=== PATIENT | male | born 1950 | race Caucasian/White ===

== ENCOUNTER 2020-02-25 07:48 | Outpatient (CLI) | payer MEDICARE, SELFPAY ==
--- NOTE | 2020-02-25 08:02 | MR_ITS ---
WS: [id number] MRI BRAIN WITHOUT CONTRAST HISTORY: ATYPICAL HEADACHE,VISION LOSS COMPARISON: None available. TECHNIQUE: Diffusion imaging, multiplanar T1, T2 and FLAIR imaging obtained. Significant abnormality noted throughout the RIGHT cerebrum. There is a large amount of vasogenic liset ma with sulcal effacement centered predominantly in the RIGHT parietal, temporal and occipital lobes. Lesser involvement of the posterior frontal lobe. There is extensive vasogenic edema. Abnormal signa l centrally in the parietal region. Abnormal signal measures 4.0 x 3.0 x 4.5 cm centered in the RIGHT parietal lobe. There is an additional similar mixed signal in the anterior frontoparietal region whi ch could be extension are separate tumor. Suspect tumor with necrosis. The edema and infiltrating whi te matter changes extends into the RIGHT splenium of the corpus callosum. There is elevation of the s plenium of the RIGHT corpus callosum. Midline shift by 3 mm. Mass effect and narrowing of the RIGHT l ateral ventricle. There are a few scattered areas of hemosiderin. No inferior displacement of cerebellar tonsils. The sella turcica and pituitary gland are unremarkabl e. Posterior fossa is also unremarkable. Dural venous sinuses and algaaciq of [place] demonstrate no abnormality on this unenhanced studies. Paranasal sinuses: Mucous retention cyst in the floor of the RIGHT maxillary sinus. Mastoid air cells: Normal. Calvarium and scalp: Intact. Notified Jose Quiles DO at 02/25/2020 10:37 AM. Message left on cell phone. MR/MR head wo con* [id number] IMPRESSION: 1. Infiltrating vasogenic edema with variable signal intensity and associated hemosiderin involving portions of the RIGHT temporal, parietal and occipital lo bes. Suspicious for infiltrating neoplasm, most likely GBM as there is extensio n into the corpus callosum. Metastatic disease and lymphoma should be considere d also within the differential but thought less likely. 2. Mild subfalcine herniation by 3 mm. 3. Mass effect upon the RIGHT lateral ventricle. 4. Recommend follow-up MRI brain with contrast.
== END 2020-02-25 07:49 | disposition home or self-care (01) ==
LOC: RADSHAW 07:52
PROVIDERS: Family Provider Family Medicine; PCP Family Medicine; Visit Provider Family Medicine
DX: R51 Headache (principal); R60.9 Edema, unspecified
CPT/HCPCS: 70551

== ENCOUNTER 2020-03-02 12:21 | Outpatient (CLI) | payer MEDICARE, SELFPAY ==
--- NOTE | 2020-03-02 15:21 | ONC CON_ITS ---
Dr. Bourgeois New Patient Note Patient: Asaf Rios Unit #: [id number]: 1950 Dicatated By: Benji Bourgeois M.D.Date of Visit: Mar 02, 2020 Onc MED New Patient/Consult Referring Physician: Dr. Jose Quiles M.D. Chief Complaint: Brain tumor. History of Present Illness: This is a 69-year-old man with suspected right parietal lobe brain tumor. 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 He has had no documented recurrence. His other medical illnesses include hypertension, hyperlipidemia, and chronic atrial fibrillation. He has suspected but apparently not documented coronary artery disease. He has on chronic anticoagulation with warfarin and aspirin. He had presented recently with a one-month history of headache, loss of balance, and visual changes. His brain MRI without contrast on 02/25/2020 showed a large amount of vasogenic edema throughout the right cerebrum with sulcal effacement centered predominantly in the right parietal, temporal, and occipital lobes. There was abnormal signal centrally in the parietal region measuring 4.0 x 3.0 x 4.5 cm suspicious for infiltrating neoplasm. There was mass-effect on the right lateral ventricle. The appearance was most consistent with GBM, as there did appear to be extension into the corpus callosum. Metastatic disease and or lymphoma were not excluded. He was started on steroid therapy with prednisone 20 mg daily. He is seen now for further management. He continues to have some headache and he continues to have difficulty with balance, particularly when he is going up or down stairs. He has episodes in which he has difficulty focusing his vision. He reports having occasional numbness/tingling in his hands or feet. He really does not have any other focal neurologic symptoms. He says his energy is fine, but he has limited his activity somewhat. His ECOG score is 1. He reports having good appetite, but his weight is down about 15 pounds from normal. He has not had fever. He says he always has night sweating, but that it has been going on for a long time. He has not had difficulty swallowing. He does not complain of shortness of breath, cough, or chest pain. He has occasional heartburn. He has no other GI or complaints. He has no significant joint or bone pain, though his record indicates that he has been on meloxicam for arthritis pain. He has had some depression following the of his last September. Past Medical History: His medical history includes atrial fibrillation, hyperlipidemia, and hypertension. He has a history of melanoma. Past Surgical History: He underwent excision of a melanoma from the right chest wall in 1992. He had a recent biopsy of right forearm skin lesion. Medications: ALPRAZolam 1 Tablet (of 0.25 mg) Oral PRN, Aspirin 1 Tablet (of 81 mg) Oral daily, Coumadin 1 Tablet (of 6 mg) Oral daily, dilTIAZem CD 1 Capsule (of 240 mg) Capsule SR 24 HR Oral daily, predniSONE 1 Tablet (of 20 mg) Oral daily for 10 days, Spironolactone 1 Tablet (of 25 mg) Oral daily, traMADol HCl 1 Tablet (of 50 mg) Oral PRN Allergies: No Known Allergies. Social History: Mr. Rios is . 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 He is now retired. He has a history of smoking for 50 years, previously up to 2 packs of cigarettes daily. He currently smokes 1/2 pack/day. He has just occasional alcohol use. Family History: Father in his 70s with stomach cancer. He also had skin cancer. Mother at age 72, cause unknown to the patient. One brother with melanoma. He has 4 other siblings who are in good health. Review Of Symptoms: Constitutional - His energy is fine, but he has decreased his activity. Appetite is good, but he has lost weight. No fever. He has had chronic sweating at night. ECOG score is 1, Eyes - He has been having episodes of difficulty focusing his vision, ENMT - He reports having hearing loss and tinnitus. No sinus congestion/drainage. No mouth sores. No sore throat or difficulty swallowing, Hematologic/Lymphatic - He bruises easily, Respiratory - No shortness of breath. No cough. No pleuritic pain or hemoptysis. He has a history of positive PPD, Cardiovascular - No angina pain. No palpitations, Gastrointestinal - No nausea or vomiting. He occasionally has heartburn. No diarrhea or constipation. No blood in the stool or black stools, Genitourinary (M) - No dysuria or hematuria. No urinary frequency. No urgency or incontinence, Musculoskeletal - No joint or bone pain, Integumentary - No skin complications, Neurologic - He has headaches. He has a constant off balance senstion. No dizziness. He has occasional numbness and tingling in his hands and feet, Psychiatric - He has had some depression since his last September. No insomnia. Vital Signs: Performed on Mar 02, 2020 12:40: 0, 36.57 (HIGH), 2.11 sq.m, 66.00 in, 95 % (LOW), 81 /min, 18 /min, 129/81 mm(hg), 97.5 F (LOW), and 226.6 lbs (HIGH). Physical Examination: Constitutional - He appears to be in good general health, Eyes - Sclerae nonicteric. Conjunctivae clear, ENMT - No lesions noted in the oral cavity, Neck - No mass or thyromegaly, Hematologic/Lymphatic - No cervical, clavicular, or axillary adenopathy, Respiratory - Lungs are clear with good air movement bilaterally, Cardiovascular - Heart rhythm is irregular. The rate is controlled. There is no murmur, gallop, or rub noted, Abdomen - Soft and non-tender. Liver and spleen are not enlarged. There is no abdominal mass or ascites noted and there is no inguinal adenopathy, Back/Spine - No spine or CVA tenderness noted, Extremities - No edema. Dorsalis pedis pulses are palpable bilaterally, Integumentary - A recent biopsy site on the right forearm appears well-healed. There are no suspicious skin lesions noted, Neurologic - He has postural instability. He does not appear to have any focal neurologic deficit. Impression: 1. 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 Metastatic disease or lymphoma were not excluded. 2. He has a history of having undergone excision of a melanoma from the upper right chest wall in 1992. There has been no evidence of recurrence. His other medical illnesses include: 3. Hypertension. 4. Hyperlipidemia. 5. Chronic atrial fibrillation. 6. He has suspected but apparently not documented coronary artery disease. Plan: The MRI findings and images were reviewed with the patient. We discussed the clinical implications. This is most likely a primary brain tumor. The size is difficult to estimate, particularly with a noncontrast MRI, but with suspected extension into the corpus callosum, it is not likely to be operable. He does, however, require biopsy to establish a tissue diagnosis. To that end I will contact Dr. Dwyer and will arrange for the procedure to be done here or in [place], per his recommendation. He is advised to go ahead and stop both the warfarin and the aspirin. He will continue prednisone 20 mg daily, but that will be transitioned to dexamethasone 4 mg 4 times daily when he uses up his current supply. I also will have him start GI prophylaxis with Pepcid 20 mg daily. Signed By: Benji Bourgeois M.D. <<Signature on File>>
== END 2020-03-02 12:22 | disposition home or self-care (01) ==
LOC: ONCMED 12:22
PROVIDERS: Family Provider Family Medicine; PCP Family Medicine; Referring Provider Family Medicine; Visit Provider Internal Medicine Medical Oncology
DX: R93.0 Abnormal findings on diagnostic imaging of skull and head, not elsewhere classified (principal); Z85.820 Personal history of malignant melanoma of skin; I10 Essential (primary) hypertension; E78.5 Hyperlipidemia, unspecified; I48.20 Chronic atrial fibrillation, unspecified; Z79.01 Long term (current) use of anticoagulants; Z79.82 Long term (current) use of aspirin; F17.210 Nicotine dependence, cigarettes, uncomplicated; Z80.0 Family history of malignant neoplasm of digestive organs; Z80.8 Family history of malignant neoplasm of other organs or systems
CPT/HCPCS: 99205

== ENCOUNTER 2020-03-04 07:36 | Outpatient (CLI) | payer MEDICARE, SELFPAY ==
--- NOTE | 2020-03-04 10:31 | MR_ITS ---
WS: [id number] MRI BRAIN WITH AND WITHOUT CONTRAST HISTORY: ABNORMAL FINDINGS ON DIAGNOSTIC IMAGING OF HEAD, BRAIN TUMOR COMPARISON: Noncontrast MRI 02/25/2020. TECHNIQUE: Multiplanar imaging performed through the brain with Prohance 17 ml's IV. Recently described infiltrating neoplasm in the RIGHT cerebrum demonstrates significant enhancement. There is central necrosis with hemorrhage and enhancement. Infiltrating fingerlike extensions of enha ncement with the largest portion of the tumor centered in the RIGHT parietal occipital lobe with exte nsion into the splenium of the RIGHT corpus callosum. Enhancing nodules extend into the RIGHT corpus callosum with elevation due to tumor edema. Smaller area of rounded enhancement extending into the RI GHT frontal parietal region. Largest tumor burden in the RIGHT posterior parietal occipital region me asures 6.2 x 4.6 x 3.8 cm. A smaller component in the posterior RIGHT frontal parietal region measure s 3.4 x 1.7 x 1.5 cm. There is a large amount of vasogenic edema with significant effacement of the s ulci throughout the entire RIGHT cerebrum. 3 mm bowing of the midline structures to the LEFT. No hydrocephalus. Mild mass effect upon the RIGHT lateral ventricle due to the edema. No enhancement in the LEFT cerebrum but there is vasogenic edema extending through the posterior corpus callosum to the LEFT suggesting progression of the infiltrating tumor. Paranasal sinuses: Mucosal retention cyst floor the RIGHT maxillary sinus. Mastoid air cells: Normal. Calvarium and scalp: Normal. MR/MR head wo/w con [id number] IMPRESSION: 1. Large infiltrating enhancing necrotic mass centered in the RIGHT parieto-oc cipital region with extension into the corpus callosum and posterior RIGHT fron toparietal junction. Likely glioblastoma multiforme. 2. Large amount of vasogenic edema throughout the RIGHT cerebrum with 3 mm mid line shift to the LEFT. 3. Edema crosses the midline via the splenium of the corpus callosum.
[2020-03-04 11:31] LABS: Blood Urea Nitrogen 13 mg/dL (8-23); Glomerular Filtration Rate 73.9 mL/min (90-130)
== END 2020-03-04 07:37 | disposition home or self-care (01) ==
LOC: ONCMED 07:36
PROVIDERS: Family Provider Family Medicine; PCP Family Medicine; Visit Provider Internal Medicine Medical Oncology
DX: R93.0 Abnormal findings on diagnostic imaging of skull and head, not elsewhere classified (principal); G93.9 Disorder of brain, unspecified
CPT/HCPCS: 70553; 82565; 84520; A9579

== ENCOUNTER 2020-03-11 09:30 | Inpatient (IN) | payer MEDICARE, SELFPAY ==
[2020-03-10 10:34] VITALS: BMI 35.5
[2020-03-11] VITALS (16 sets, daily range): BP systolic 91–121; BP diastolic 51–85; PULSE 61–99; RESP 12–21; TEMP 36.1–36.8; O2SAT 92–97
--- NOTE | 2020-03-11 06:35 | ANES.PREANE2 ---
Pre-Anesthetic Assessment Pre-Anesthetic Assessment: Height/Weight: Height 1.68 m Weight 99.79 kg Temp Pulse Resp BP Pulse Ox 97 F L 82 18 103/77 95 03/11/20 06:18 03/11/20 06:18 03/11/20 06:18 03/11/20 06:18 03/11/20 06:18 Preop Diagnosis: Intracranial mass Proposed Procedure: Operation Date: 03/11/20 07:30 Proposed Procedures p Stereotactic Brain Biopsy, right patietal/occipital 31109 G93.89(Right) - Amando Dwyer MD Last intake: Intake Last Liquid Date 03/10/20 Last Solid Date 03/10/20 Social: Social History: Tobacco Packs per day: 1/2 Pack years: 30+ Exam: Pre-Anes Outpt Exam: alert and oriented x 3 Airway: Submandibular: WNL Cervical ROM: WNL MP: 1 CV/HEM: CV/HEM: Afib and HTN Comments: rx'd 10y stress test '10 negative cath/angio '10 Neuropsych: Comments: inracranial mass Anesthetic Plan: ASA status: 3 Anesthesia: General and MAC PFSH Anesthesia PFSH: Social History Smoking and tobacco status: current every day smoker Alcohol intake: never Household members: none Marital status: / service: Yes Current occupational status: retired History of recent travel: No Data Anesthesia Cardiac Studies: No Data to Display
--- NOTE | 2020-03-11 06:51 | W.PM.OPSUD ---
Surgery/Procedure H&P Update DATE OF PROCEDURE: March 11, 2020 DATE H&P PERFORMED: 03/10/20 H&P UPDATE INFORMATION: I have reviewed H&P completed within last 30 days and H&P to be scanned into chart PREOP DIAGNOSIS: Intracranial mass PRIMARY INDICATION FOR PROCEDURE: Brain mass PLANNED PROCEDURE: Operation Date: 03/11/20 07:30 Proposed Procedures Stereotactic Brain Biopsy, right parieto-occipital mass 78673 G93.89(Right) - Amando Dwyer MD
[2020-03-11] MEDS: sodium chloride 0.9% 1,000 ML 30 ML IV ×2 (07:00→10:03)
--- NOTE | 2020-03-11 07:17 | CT_ITS ---
WS: [id number] CT head for stereotactic biopsy. Imaging is provided for neurosurgical evaluation during biopsy.
[2020-03-11] MEDS: iohexol 300 mg/mL 100 mL Btl IV (07:34)
--- NOTE | 2020-03-11 07:41 | P.OP_ITS ---
Brief Operative Note: Date of procedure: 03/11/20 Pre-op diagnosis: Intracranial mass Post-op diagnosis: same Procedure Done: CT-guided stereotactic brain biopsy Surgeon: Amando Dwyer Estimated blood loss (mL): 8 Complications: None Post-op Plan: ICU Condition: stable Disposition: ICU Coding Level of Care Code Acute Assistant Customer Service Manager for Chinmay Emanuel
--- NOTE | 2020-03-11 08:08 | SUR.OPER ---
0700 Dr Dwyer at pt bedside with staff. CT Halo applied by Dr Dwyer. pt tolerated well. [address] by this nurse and Dr Dwyer. 0736 Pt brought to OR and placed on or table for procedure. Elizondo placement and positioning done by Dr Dwyer with assistance of staff.
[2020-03-11] MEDS: mineral oil light VIAL 10 mL MISCELLANE (08:18)
--- NOTE | 2020-03-11 11:50 | CT_ITS ---
WS: [id number] CT HEAD NONCONTRAST HISTORY: postop brain biopsy TECHNIQUE: Contiguous axial imaging performed through the brain in 2.5 mm imaging. Bone and soft tiss ue windows. Sagittal and coronal reformats reviewed. All CT scans at [facility] use at ast one of these dose optimization techniques: automated exposure control; mA and/or kV adjustment pe r patient size (includes targeted exams where dose is matched to clinical indication); or iterative r econstruction. DLP: 796.52 mGy.cm COMPARISON: 03/11/2020 and MRI 03/04/2020 Status post biopsy of the neoplastic process in the RIGHT parieto-occipital region. There are numerou s foci of air along the biopsy tract extending from the superior parietal region to the occipital hor n of the RIGHT lateral ventricle. There is also small amount of pneumocephalus. Focal area of increas ed density consistent with mild postoperative hemorrhage at the biopsy site. Maximum diameter of the hemorrhage is 12 mm. Minimal bowing of the midline structures to the LEFT by less than 3 mm. There is a very small asaf hole in the RIGHT parietal bone along the biopsy tract. CT/CT head wo con* [id number] IMPRESSION: 1. Postop imaging after brain biopsy. 2. Several foci of air noted along the biopsy track of the RIGHT occipital par ietal region extending to the lateral ventricle. 3. Small amount of hemorrhage at the biopsy site maximum diameter of 12 mm. 4. Small amount of pneumocephalus.
[2020-03-11] MEDS: sodium chlor 0.9% + KCl 20 mEq 20 MEQ/1,000 ML BAG 75 MEQ IV (12:03)
[2020-03-11] MEDS: dexamethasone 4 mg/mL INJ IVP ×3 (12:03→23:21)
--- NOTE | 2020-03-11 12:13 | PM.OP ---
Operative Report Date of procedure: March 11, 2020 Pre-op Diagnosis: Intracranial mass Post-op diagnosis: same Procedure Done: CT-guided stereotactic biopsy of right parieto-occipital brain mass. Specimens removed/disposition: Brain biopsy specimens/Pathology Pathology: Brain biopsy specimens for frozen and permanent section. Lesional tissue confirmed on frozen section per Pathologist's verbal report. Surgeon: Amando Dwyer Anesthesia: MAC Estimated blood loss (mL): 8 IV fluids (mL): 800 Complications: None Condition: stable Disposition: ICU Brief History: The patient is a 69-year-old male with with new onset headache and neurologic changes who was found to have a right parieto-occipital enhancing brain lesion, consistent with malignant neoplasm. He was referred by Oncology for consideration of brain biopsy. After review of the diagnostic and treatment options with the risks/potential benefit/rationale for each, the patient requested to proceed with a stereotactic biopsy in hopes of obtaining a definitive tissue diagnosis. Procedure: After routine preoperative evaluation and informed consent were obtained, the patient was fit in the Leksell model G stereotactic head frame and transported to the Radiology Department. The localizer box was applied to the stereotactic frame. A postcontrast CT scan of the head was performed utilizing the stereotactic localization protocol. A biopsy target was chosen in the right parieto-occipital area, and stereotactic coordinates were obtained. The localizer box was removed, and the patient was transported to the surgical suite. He was positioned supine on the operating table, which was then adjusted to a modified beach chair position. The head was placed in a comfortable position and secured to the table utilizing the Elizondo adapter, which was attached to the stereotactic head frame. Hair clippers were utilized on the scalp in the area of the planned skin incision. The scalp was scrubbed with Betadine and prepped with DuraPrep. A sterile drape was applied . The patient was monitored and maintained under intravenous sedation by Anesthesia staff during the procedure. The stereotactic arc/ring/frame components were assembled, target coordinates were set, and the device was secured to the stereotactic head frame. The planned right parietal scalp entry site was marked with a sterile skin marker. The area was infiltrated with 1% lidocaine with epinephrine. An incision was made and carried down to the pericranium. The 4 mm guide and stop were placed. The skull was perforated with the drill bit utilizing a battery-powered hand drill. The 2.5 mm guide and stop were placed, and the Mears sidecutting biopsy needle was advanced to the target site. Specimens were obtained and sent to pathology for frozen section evaluation. The initial frozen section report indicated lesional tissue, with final diagnosis deferred to permanent section. An additional specimen was obtained and sent for permanent section evaluation. The biopsy needle was removed and the scalp incision was gently irrigated with sterile saline and antibiotic irrigation. No active bleeding was demonstrated. The incision was closed with a pair of 4-0 nylon simple interrupted sutures. Antibiotic ointment was placed at the incision site, which was covered with a Band-Aid. The patient was released from the stereotactic head frame and transported to the ICU for routine postoperative management and monitoring. He tolerated the procedure well. All sponge, needle, and instrument counts were correct at the completion of the procedure.
[2020-03-11] MEDS: docusate sodium 100 mg Capsule PO (17:27)
[2020-03-11] MEDS: artificial tears Op Soln 15 mL Btl 1 DROP EYE-BOTH (18:43)
--- NOTE | 2020-03-11 18:59 | PC.NURSE ---
Pt arrived to the unit at 0900 via stretcher from OR. Pt has remained AAOX3, pleasant and cooperative with staff and care all shift. No complaints of pain voiced. Bandaid to right side of head CDI. Pt has sat up on the side of the bed, up to the BR, had a BM this shift. NS c 20KCL @ 100mls/hr infusing via pump as ordered. Pt is eating well with no complaints of nausea. Report given MANGO Obrien.
[2020-03-11] MEDS: HYDROcodone-acetaminophen 5-325 mg Tablet PO (19:22)
[2020-03-12] VITALS (9 sets, daily range): BP systolic 100–142; BP diastolic 43–93; PULSE 78–104; RESP 12–23; TEMP 36.4–36.8; O2SAT 91–97
[2020-03-12] MEDS: sodium chlor 0.9% + KCl 20 mEq 20 MEQ/1,000 ML BAG 75 MEQ IV (02:58)
[2020-03-12] MEDS: dexamethasone 4 mg/mL INJ IVP ×2 (06:30→11:51)
[2020-03-12] MEDS: spironolactone 25 mg Tablet PO (08:03)
[2020-03-12] MEDS: docusate sodium 100 mg Capsule PO (08:03)
[2020-03-12] MEDS: dilTIAZem ER (24HR) 240 mg Capsule PO (08:03)
--- NOTE | 2020-03-12 12:00 | P.DS_ITS ---
Discharge Providers Date of Admission: 03/11/20 09:30 Date of Discharge: March 12, 2020 Attending Provider at Admission: Amando Dwyer MD Attending Provider at Discharge: Amando Dwyer MD Primary Care Provider: Jose Quiles DO Diagnoses at Discharge Discharge Diagnosis (1) Brain mass: Status: Acute Reason for Visit Reason for Visit: Reason For Visit: Brain Mass Brief History: The patient is a 69-year-old male with with new onset headache and neurologic changes who was found to have a right parieto-occipital enhancing brain lesion, consistent with malignant neoplasm. He was referred by Oncology for consideration of brain biopsy. After review of the diagnostic and treatment options with the risks/potential benefit/rationale for each, the patient requested to proceed with a stereotactic biopsy in hopes of obtaining a definitive tissue diagnosis. Hospital Course Hospital Course: Patient underwent CT-guided stereotactic biopsy of right parieto-occipital brain mass on 03/11/2020. He tolerated the procedure well. Frozen section diagnosis was consistent with lesional tissue. Final diagnosis was deferred to permanent section. Postoperative CT confirmed biopsy at the target site. A small amount of surgical site pneumocephalus/hemorrhage was demonstrated. He was monitored in the ICU overnight. He completed perioperative intravenous antibiotics. He was ambulatory, voiding, and tolerating diet prior to discharge home on postoperative day #1. Physical Exam Const: COMMON NORMALS: no apparent distress, healthy appearing and alert GENERAL APPEARANCE: cooperative and comfortable HENMT: COMMON NORMALS: normocephalic and hearing grossly normal bilaterally HEAD & SCALP: normocephalic Eye: COMMON NORMALS: EOMs intact bilaterally VISUAL ANGULO: Yes left visual field cut Neck/C-Spine: COMMON NORMALS: supple and no JVD GENERAL: Yes trachea midline Resp: COMMON NORMALS: normal respiratory effort EFFORT & INSPECTION: Yes able to speak in complete sentences, No tachypneic and No respiratory distress Cardio: COMMON NORMALS: no JVD and regular rate RATE: regular rate Extremity: COMMON NORMALS: no clubbing, cyanosis or edema Neuro: COMMON NORMALS: moves all extremities and no focal motor deficits SENSORIUM/ORIENTATION: Yes alert and No orientation impaired CRANIAL NERVES: Yes CN III (oculomotor), Yes CN IV (trochlear), Yes CN V (trigeminal), Yes CN (abducens), Yes CN VII (facial), Yes CN VIII (vestibulocochlear), Yes CN XI (spinal accessory) and Yes CN XII (hypoglossal) COORDINATION/BALANCE: [id number] test normal SPEECH: speech normal COORDINATION: [id number] test normal Psych: COMMON NORMALS: mental status grossly normal and speech normal ATTITUDE: Yes calm and Yes engaged ACTIVITY/MOTOR BEHAVIOR: Yes appropriate eye contact SPEECH: Yes normal speech MOOD & AFFECT: Yes euthymic mood ATTENTION/CONCENTRATION: Yes attention grossly intact Skin: COMMON NORMALS: no rashes or lesions noted GENERAL SKIN EXAM: no rashes or lesions noted WOUNDS: Yes surgical site (Right parietal scalp surgical site without erythema or drainage. Sutures intact.) Discharge Data Data Completed and Pending: Completed Studies During Hospitalization Category Date Time Status CT head w con 704 60 Routine Cat Scan 03/11/20 07:[address] head wo con* 7 0450 Routine Cat Scan 03/11/20 11:50 Completed Pathology: Surgic al [PTH] Routine Pth 03/11/20 08:43 Completed Imaging^: CT Head: Radiologist's impression: IMPRESSION: 1. Postop imaging after brain biopsy. 2. Several foci of air noted along the biopsy track of the RIGHT occipital parietal region extending to the lateral ventricle. 3. Small amount of hemorrhage at the biopsy site maximum diameter of 12 mm. 4. Small amount of pneumocephalus. Vitals: Last Vital Signs Temp 97.6 F 03/12/20 12:42 Pulse 100 03/12/20 12:42 Resp 18 03/12/20 12:42 BP 124/65 03/12/20 12:42 Pulse Ox 97 03/12/20 12:42 Discharge Plan Discharge Patient Disposition: Home, Self-Care Condition: Stable Prescriptions: Continued alprazolam 0.25 mg tablet 0.25 mg PO DAILY PRN (Reason: Anxiety) RF: 0 diltiazem HCl 240 mg capsule,extended release 24hr 240 mg PO DAILY RF: 0 spironolactone 25 mg tablet 25 mg PO DAILY RF: 0 tramadol 50 mg tablet 50 mg PO DAILY PRN (Reason: Headache) RF: 0 Held aspirin 81 mg tablet,delayed release (DR/EC) 81 mg PO DAILY RF: 0 Hold Instructions: Resume on 03/13/20. warfarin [Coumadin] 6 mg tablet 3 mg PO DAILY RF: 0 Hold Instructions: Resume on 03/15/20. Discharge Orders: Discharge Order (Routine); Ordered 03/12/20 Ordered By: Amando Dwyer Referrals: Amando Dwyer MD [Physician] - 03/18/20 (You have a follow up appointment with Dr. Dwyer on , March 18, at 8:00am. If you have any questions or concerns please call the office. ) Discharge Diet: Usual diet Discharge Activity: Limit activity as instructed Patient Instructions: Levetiracetam (By mouth), Atrial Fibrillation (DC), Melanoma (DC) Activity Restrictions/Additional Instructions: Continue home prednisone Rx. Activity - No driving until office followup visit - No lifting/pushing/pulling over 10 pounds - Avoid twisting or bending - Walking is encouraged - Home exercise per physical therapist - You may engage in sexual intercourse at any time as long as it is comfortable for you - Check with your doctor before returning to work. Notify your doctor if you develop: - temperature of 101.5 degrees F. or higher - redness or swelling of the incision - Foul drainage - increasing pain - increasing numbness or tingling in the arms or legs - New or increasing problems with vision, balance, memory, speaking, nausea or vomiting Hygiene: - Showering is okay - No tub baths or soaking Other: Keep your incision dry until the stitches are removed. Brain surgery: You may wear hats, scarves or turbans at any time. Your doctor's office is available to answer any questions from 7 AM to 5:00 PM, Sunday through at [phone]. After hours, go to the emergency room at [facility] or call 911 for assistance. 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
== END 2020-03-12 12:52 | disposition home or self-care (01) | DRG 72 ==
LOC: ICU 09:31
PROVIDERS: Admitting Provider Specialist; Family Provider Family Medicine; PCP Family Medicine; Visit Provider Specialist
PROC: 00B03ZX Excision of Brain, Percutaneous Approach, Diagnostic (ICD-10-PCS; CPT 61750; principal; 2020-03-11 07:00)
DX: G93.9 Disorder of brain, unspecified (principal)
CPT/HCPCS: 12345; 70450; 70460; 88307; 96375; J0690; J1100; J1953; J2001; J2250; J2704; J3010; J3490; J7030; Q9967

== ENCOUNTER 2020-03-22 07:49 | Outpatient (RCR) | payer MEDICARE, SELFPAY ==
--- NOTE | 2020-03-22 | CT_ITS ---
Radiation Therapy Planning CT images; total exam DLP: 653.54 mGy-cm MTDD
--- NOTE | 2020-03-22 14:44 | N.ONRAD NP_ITS ---
Radiation Oncology New Patient Visit Patient: Asaf Rios MR#: [id number] : 1950> Age: 69> Sex: Male> Dictated by: Dr. James Otero Date of Service: 03/22/2020 Referring Physician(s) : Dr. Jose Quiles Diagnosis: C71.8 Glioblastoma. Radiotherapy to date: Summary > No prior radiation therapy. Chief Complaint / History of Present Illness: Right occipital lobe glioblastoma multiform a status post biopsy on March 11, 2020. We were asked to see him regarding the role of radiation treatment in his care. Mr. Asaf Rios is a 69-year-old gentleman who noted a 1 to 2-month history of headaches and diminished visual acuity with fuzziness in his vision and reduced depth perception. This resulted in difficulty with ambulation making it difficult to ambulate on uneven surfaces. He used a cane to assist in his ambulation he had no falls. He has had no seizures or other neurologic symptoms. He lives alone in a [place] house. He was recently his from a cerebrovascular accident September 2019. He has no children. Since diagnosis he has been placed on 20 mg of prednisone with improved headaches. He underwent MRI scan on February 25, 2020 this revealed a multicentric enhancing multilobular mass in the right central occipital lobe extending to the corpus callosum and posterior right frontal parietal region associated with vasogenic edema and effacement of the sulci and minimal midline shift. There was vasogenic edema extending through the posterior corpus callosum into the left side suggesting progression of the infiltrating tumor. He underwent stereotactic biopsy by Dr. Amando Dwyer here on February 28, 20162019 which did confirm glioblastoma multiform a molecular studies including IDH, TERT promoter and MGMT mutation analysis were pending. Since biopsy has had no significant symptomatic change. 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 Current Medications: ALPRAZolam, aspirin, coumadin, dilTIAZem CD, predniSONE, spironolactone, traMADol HCl. Allergies: No Known Allergies Medical History: - Atrial fibrillation, - history of melanoma, - hyperlipidemia, - hypertension. No history of collagen vascular disease. No previous radiation therapy. Surgical History: Excision of melanoma from the right chest wall in 1992 and recent biopsy of right forearm skin lesion. Family History: Father in his 70s with stomach cancer. He also had skin cancer. Mother at age 72, cause unknown to the patient. One brother with melanoma. He has 4 other siblings who are in good health. Social History: Last screened on 03/22/2020 - Current every day smoker 1.0 pack/day for 50 years (50 pack years). Last screened on 02/26/2020 - Never drank. Patient indicated use of the following products: cigarettes. Patient indicated access to the following support systems: Adequate transportation available for expected visits, Lives alone, and Supportive family/friends willing to assist with needs. Patient indicated the following nutritional habits: Regular meals. Patient indicated participation in the following forms of activity: Light exercise. 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 He has been a lifelong smoker as noted and continues to smoke less than 1/2 pack/day. He is a nondrinker. No significant hobbies. Current Complaints / Review of Systems: Constitutional - Complains of night sweats which occur occasionally. Denies lack of appetite, fatigue, fever and change in weight. Eyes - Complains of blurred vision in both eyes. Denies double vision. Has decreased depth preception in the left eye. ENMT - Complains of ear pain on the right side which happens occasionally. Complains of a severe hearing impairment in the left ear. Complains of tinnitus. Denies dysphagia, mouth dryness, stomatitis and altered taste. Neck - Denies neck pain. Integumentary - Denies rash. Cardiovascular - Denies arrhythmias and chest pain. Respiratory - Denies cough, dyspnea and wheezing. Gastrointestinal - Complains of nausea with taking Keppra and goes away. Denies abdominal pain, constipation, diarrhea, heartburn / dyspepsia, melena / GI bleeding and vomiting. Genitourinary (M) - Complains of nocturia which happens occasionally. Denies dysuria, frequency and urgency. Musculoskeletal - Denies bone pain, joint pain and muscle weakness. Neurologic - Complains of abnormal gait in which he feels off balanced with walking. Complains of mild headaches occurring intermittently throughout the day. Denies disorientation, dizziness, insomnia, sensory problems and seizure. Has increased short term memory loss. Endocrine - Denies diabetes and thyroid disease. Hematologic/Lymphatic - Denies easy bruising and tender or enlarged lymph nodes.. Vital Signs: Performed on 03/22/2020 8:42 AM BMI - 35.057 kg/m2 (high), Height - 66.00 in, Weight - 217.2 lbs, Temperature - 97.7 f, Pulse - 74, Respiration - 18, O2 Sat - 98 %, Pain - 0 and BP - 130/ 79 mm(hg). Physical Exam: Robust pleasant gentleman in no acute distress appropriate alert and conversant.Oral cavity was clear no oral candidiasis HEENT examination otherwise unremarkable. Right parietal occipital biopsy site was a tiny erythematous spot on his scalp which was healed. Lymph nodes he had no palpable adenopathyRight shoulder revealed a healed incision where his melanoma was resected with no recurrenceLungs clear to auscultationHeart irregularly irregular no murmur gallopAbdominal examination unremarkableExtremities revealed no clubbing cyanosis or edemaNeurologic examination he was oriented x3 appropriate alert conversant cranial nerves II through XII are grossly intact some diminished hearing on the left side on confrontation he had a left visual field defectExtremity strength reflexes sensation intactGait was intact no ataxiaCoordination was intact by [id number] and rapid alternating movement Performance Status: 90 Pathology: Pathology was consistent with glioblastoma multiforma. Lab: Imaging: See HPI Impression: Glioblastoma multiform a of the right occipital parietal and posterior frontal lobe region. He has multicentric disease with some suggestion of disease extension across the corpus callosum. He is relatively asymptomatic outside of visual field loss and loss of depth perception which does impair his gait. He has mild headaches are controlled with modest dose of prednisone at this time. I did not feel aggressive surgical resection would improve him symptomatically. I rather recommend regional external beam radiation therapy in combination with oral Temodar on a daily basis followed by maintenance Temodar following radiation treatment. He will see Dr. Bourgeois who may switch him from prednisone to dexamethasone. I discussed the treatability of his illness and its incurability. I outlined that radiation and chemotherapy would extend his life and extend his period of stable neurologic function. I outlined the need to address advanced directives. I recommended a no CODE STATUS. I also recommended having family or friend become his DURABLE POWER OF PICK UP ATTENDANT. He is currently with Isidra Shah who will be as DURABLE POWER OF PICK UP ATTENDANT. By his report, he has no suitable family members for this role. We anticipate simulation to occur this week with a 6-week course of radiation to start as soon as treatment planning can be accomplished. Plan: Signed by: 03/22/2020 2:42:36 PM <<Signature on File>> Time spent with patient: CPT Code: CPT Code:
--- NOTE | 2020-03-22 20:37 | ONC FU_ITS ---
Dr. Bourgeois Patient Follow-Up Note Patient: Asaf Rios Unit #: [id number]: 1950 Dicatated By: Benji Bourgeois M.D.Date of Visit:Mar 22, 2020 Onc Med Follow-up/Prog Note Chief Complaint: Glioblastoma. 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 He has had no documented recurrence. His other medical illnesses include hypertension, hyperlipidemia, and chronic atrial fibrillation. He has suspected but apparently not documented coronary artery disease. He has on chronic anticoagulation with warfarin and aspirin. He had presented with a one-month history of headache, loss of balance, and visual changes. His brain MRI without contrast on 02/25/2020 showed a large amount of vasogenic edema throughout the right cerebrum with sulcal effacement centered predominantly in the right parietal, temporal, and occipital lobes. There was abnormal signal centrally in the parietal region measuring 4.0 x 3.0 x 4.5 cm suspicious for infiltrating neoplasm. There was mass-effect on the right lateral ventricle. The appearance was most consistent with GBM, as there did appear to be extension into the corpus callosum. Metastatic disease and or lymphoma were not excluded. He was started on steroid therapy with prednisone 20 mg daily. I had seen him initially on 03/02/2020. With those findings arrangements were made for referral to Dr. Dwyer. He had further evaluation with contrast-enhanced brain MRI on 03/04/2020. It showed a large infiltrating necrotic mass centered in the right parieto-occipital region with extension into the corpus callosum and into the posterior right frontoparietal junction. The appearance was most consistent with glioblastoma multiforme.there was a large amount of vasogenic edema throughout the right cerebrum with a 3 mm midline shift to the left. Edema was noted to cross the midline via the splenium of the corpus callosum. On 03/11/[address]-guided stereotactic brain biopsy. Pathology, as expected, was consistent with glioblastoma multiforme (high-grade glioma, WHO grade IV). Additional studies have been sent to [facility] and those results are pending. In the meantime, he had radiation oncology consultation with Dr. James Otero today, and he will be undergoing radiation, as he does not appear to be a surgical candidate. His other medical illnesses include hypertension, hyperlipidemia, and chronic atrial fibrillation. He has suspected though apparently not documented coronary artery disease. He has a history of smoking for 50 years, previously up to 2 packs of cigarettes daily. He currently smokes 1/2 pack/day. He is still feeling pretty good generally. His ECOG score is 1. He has good appetite. He has continued to lose weight, though. He has not had fever. He has some mild night sweating, which is chronic. He has not had sore mouth or throat he does not have difficulty swallowing. He has just occasional cough. He does not complain of shortness of breath or chest pain. He has having a little nausea with the Keppra. He has no other GI or complaints. He has no significant joint or bone pain. He is just having occasional headache now. He does have some visual change. His balance is okay most of the time. He has occasional numbness in his right leg and foot, mainly after prolonged standing. He has no other focal neurologic symptoms. Medications: ALPRAZolam 1 Tablet (of 0.25 mg) Tablet Oral PRN, Aspirin 1 Tablet (of 81 mg) Oral daily, dilTIAZem CD 1 Capsule (of 240 mg) Capsule SR 24 HR Oral daily, Keppra 1 Tablet (of 500 mg) Tablet Oral b.i.d., predniSONE 1 Tablet (of 10 mg) Oral daily for 10 days, Spironolactone 1 Tablet (of 25 mg) Oral daily, traMADol HCl 1 Tablet (of 50 mg) Oral PRN, Warfarin Sodium 1 Tablet (of 3 mg) Oral daily Allergies: No Known Allergies. Review of Systems: Constitutional - His energy is prett good. Appetite is good, but he has lost weight. No fever. He has chronic, mild sweating at night. ECOG score is 1, ENMT - He has sinus congestion/drainage. No mouth sores. No sore throat or difficulty swallowing, Hematologic/Lymphatic - He bruises easily, Respiratory - No shortness of breath. He has occasional cough. No pleuritic pain or hemoptysis, Cardiovascular - No angina pain. No palpitations, Gastrointestinal - He has had nausea from the Keppra. No vomiting. No heartburn. No diarrhea or constipation. No blood in the stool or black stools, Genitourinary (M) - No dysuria or hematuria. No urinary frequency. No urgency or incontinence, Musculoskeletal - No joint or bone pain, Integumentary - No skin complications, Neurologic - He has just occasional headaches. His balance is OK most of the time. He has occasional numbness and tingling in his right leg, mainly after prolonged standing, Psychiatric - He has had some anxiety and depression. No insomnia, Constitutional - Complains of night sweats which occur occasionally. Denies lack of appetite, fatigue, fever and change in weight, Eyes - Complains of blurred vision in both eyes. Denies double vision. Has decreased depth preception in the left eye, ENMT - Complains of ear pain on the right side which happens occasionally. Complains of a severe hearing impairment in the left ear. Complains of tinnitus. Denies dysphagia, mouth dryness, stomatitis and altered taste, Neck - Denies neck pain, Integumentary - Denies rash, Cardiovascular - Denies arrhythmias and chest pain, Respiratory - Denies cough, dyspnea and wheezing, Gastrointestinal - Complains of nausea with taking Keppra and goes away. Denies abdominal pain, constipation, diarrhea, heartburn / dyspepsia, melena / GI bleeding and vomiting, Genitourinary (M) - Complains of nocturia which happens occasionally. Denies dysuria, frequency and urgency, Musculoskeletal - Denies bone pain, joint pain and muscle weakness, Neurologic - Complains of abnormal gait in which he feels off balanced with walking. Complains of mild headaches occurring intermittently throughout the day. Denies disorientation, dizziness, insomnia, sensory problems and seizure. Has increased short term memory loss, Endocrine - Denies diabetes and thyroid disease, Hematologic/Lymphatic - Denies easy bruising and tender or enlarged lymph nodes. Vital Signs: Performed on Mar 22, 2020 08:42 Height - 66.00 in Weight - 217.2 lbs Temperature - 97.7 F Pulse - 74 Respiration - 18 BP - 130/79 mm(hg) O2 Sat - 98 % Pain - 0 Performed on Mar 22, 2020 08:42 BMI - 35.057 kg/m2 (HIGH) Physical Examination: Constitutional - He looks pretty good generally, Eyes - Sclerae nonicteric. Conjunctivae clear, ENMT - No lesions noted in the oral cavity, Hematologic/Lymphatic - No cervical, clavicular, or axillary adenopathy, Respiratory - Lungs are clear with diminished air movement bilaterally, Cardiovascular - Heart rhythm is irregular. There is no murmur, gallop, or rub noted, Abdomen - Soft. Liver and spleen are not enlarged. There is no abdominal mass or ascites noted and there is no inguinal adenopathy, Extremities - No edema, Neurologic - He does not appear to have any focal neurologic deficit. Impression: 1. Patient with glioblastoma multiforme (high-grade glioma, WHO grade IV), involving the right parietal/occipital lobe of the brain, but with MRI evidence of extension into the corpus callosum and into the posterior right frontoparietal junction. 2. Results of molecular studies are currently pending. His other medical illnesses include: 3. Hypertension. 4. Hyperlipidemia. 5. Chronic atrial fibrillation. 6. He has suspected but apparently not documented coronary artery disease. 7. He has a history of having undergone excision of a melanoma from the upper right chest wall in 1992. There has been no evidence of recurrence. Plan: The pathology findings were reviewed with the patient. As he does not appear to be a suitable candidate for surgical resection, he is recommended to undergo treatment with radiation concurrently with temozolomide chemotherapy. The temozolomide will be administered at a standard dosage of 75 mg/m??? daily during radiation followed by monthly cycles beginning at 150 mg/m??? days 1 through 5 each month for a total of 6 cycles. I reviewed anticipated side effects including the potential for nausea, fatigue, alopecia, and low blood counts, among others. He will be given ondansetron for nausea. His blood counts will be monitored weekly during treatment. Signed By: Benji Bourgeois M.D. <<Signature on File>>
== END 2020-03-25 23:59 | disposition home or self-care (01) ==
LOC: ONCMED 07:49
PROVIDERS: Family Provider Family Medicine; PCP Family Medicine; Visit Provider Radiology Radiation Oncology
DX: C71.8 Malignant neoplasm of overlapping sites of brain (principal); F17.210 Nicotine dependence, cigarettes, uncomplicated; H54.7 Unspecified visual loss; H53.8 Other visual disturbances; Z79.52 Long term (current) use of systemic steroids; Z85.820 Personal history of malignant melanoma of skin; Z79.82 Long term (current) use of aspirin; Z79.01 Long term (current) use of anticoagulants
CPT/HCPCS: 77290; 77295; 77300; 77334; 77470; 99204

== ENCOUNTER 2020-04-23 06:47 | Outpatient (RCR) | payer MEDICARE, SELFPAY ==
--- NOTE | 2020-04-06 13:44 | ONCRAD TMN_ITS ---
Radiation Oncology Weekly Treatment Management Patient: Asaf Rios MR#: [id number] : 1950 Age: 69 Sex: Male Dictated by: Dr. James Otero Date of Service: 04/06/2020 Referring Physician(s) : Dr. Jose Qiules Primary Diagnosis: C71.8 - Malignant neoplasm of overlapping sites of brain, Diagnosed 03/22/2020 (Active) R93.0 - Abnormal findings on diagnostic imaging of skull and head, not elsewhere classified, Diagnosed 03/02/2020 (Active) Z85.820 - Personal history of malignant melanoma of skin, Diagnosed 03/02/2020 (Active) Radiotherapy to date: Course: GBM, Treatment Site: [id number], Ref. ID: [id number], Energy: 15X/6X, Dose/Fx (cGy): 200, #Fx: , Dose Correction (cGy): 0, Total Dose (cGy): 400, Start Date: 04/05/2020, Elapsed Days: 1 Current Complaints/Interval History: Began chemo with radiation. No IBRAHIM, N or V. Heartburn experienced last night with burping. Currently on dexamethasone 4 mg twice daily. Vision is unchanged. He continues to live alone but does keep his cell phone on hand so that his friend Isidra can be in contact with him. He lives upstairs in his home with no railing but feels stable and his current ability to walk stairs. Constitutional Complains of mild fatigue. Denies lack of appetite, fever, night sweats and change in weight. Eyes Complains of blurred vision in the left eye that happens occasionally. Denies double vision. ENMT Denies altered taste. Gastrointestinal Complains of heartburn / dyspepsia. Denies nausea and vomiting. Neurologic Complains of abnormal gait in which he feels off balanced with walking at times. Denies disorientation, dizziness and headaches. Current Medications: ALPRAZolam, aspirin, decadron, dilTIAZem CD, keppra, ondansetron, predniSONE, spironolactone, traMADol HCl, warfarin Sodium. Allergies: No Known Allergies Vital Signs: Performed on 04/06/2020 8:52 AM BMI - 35.025 kg/m2 (high), Height - 66.00 in, Weight - 217.0 lbs, Temperature - 97.8 f, Pulse - 97, Respiration - 18, O2 Sat - 98 %, Pain - 0 and BP - 112/ 74 mm(hg). Physical Exam: Appears stable, no skin erythema or desquamation. Oral cavity was clear no candidiasis scalp revealed no alopecia Performance Status: 1 - No physically strenuous activity, but ambulatory and able to carry out light or sedentary work (e.g. office work, light house work). (ECOG) Lab: None pending in Radiation Oncology. Test performed on 03/29/2020 7:46 AM WBC - 15.8 10^9/l (high), Neutrophils (Gran) - 41398 10^9/l (high), Lymphocytes - 1785 10^9/l (high), Monocytes - 1106 10^9/l (high), Eosinophils - 16 10^9/l (high), Basophils - 32 10^9/l (high), Manual Lymphocytes - 11.3 % (low), Sodium - 132 mmol/l (low), Protein, Total - 5.8 g/dl (low), Globulin - 1.9 g/dl (low), PT - 14.1 sec (high) and INR - 1.4 (low). Imaging: No new diagnostic imaging was performed since the last weekly treatment visit. All radiation therapy related imaging (including but not limited to kV, MV, and CBCT generated images) was reviewed. Appropriate changes, if any, were made to assure accurate target localization. Impression/Plan: Tolerating treatment well with expected side effects. Continue treatment as planned. We will add omeprazole OTC for reflux. He will also add antiacids with symptomatic burping. CPT: 83573 Signed by: Dr. James Otero>04/06/2020 12:47:06 PM <<Signature on File>>
[2020-04-12 12:57] LABS: Basophils # 0.1 10^3/uL (0.0-0.1); Basophils % 0.3 %; Eosinophils % 0.2 %; Hematocrit 47.3 % (42.0-52.0); Hemoglobin 15.7 g/dL (11.7-16.6); Mean Corpuscular HGB Conc 33.2 g/dL (30.0-36.0); Mean Corpuscular Hemoglobin 30.3 pg (28.0-34.0); Mean Corpuscular Volume 91.1 fL (80-94); Mean Platelet Volume 10.6 fL (7.4-10.4); Monocytes # 1.3 10^3/uL (0.2-0.9); Monocytes % 6.7 %; Neutrophils # 13.7 10^3/uL (1.8-7.7); Neutrophils % 73.3 %; Nucleated Red Blood Cells % 0 %; Platelet Count 149 10^3/cmm (130-400); Red Blood Count 5.19 10^6/uL (4.1-5.3); Red Cell Distribution Width 12.9 % (12.1-15.1); White Blood Count 18.7 10^3/uL (4.0-10.0)
[2020-04-12 13:12] LABS: Alanine Aminotransferase 28 U/L (0-41); Albumin Level 4.1 g/dL (3.5-5.2); Alkaline Phosphatase 49 IU/L (40-130); Anion Gap 17.2 (5-19); Aspartate Amino Transferase 23 U/L (0-40); Blood Urea Nitrogen 20 mg/dL (8-23); Calcium 8.2 mg/dL (8.5-10.5); Carbon Dioxide 26 mmol/L (22-29); Chloride 95 mmol/L (98-107); Globulin 1.5 g/dL (1.3-4.6); Glomerular Filtration Rate 83.4 mL/min (90-130); Glucose 126 mg/dL (65-115); Osmolality Calculated 276 mOsm/kg (285-295); Potassium 4.2 mmol/L (3.5-5.1); Sodium 134 mmol/L (136-145); Total Bilirubin 0.6 mg/dL (0.15-1.2); Total Protein 5.6 g/dL (6.6-8.7)
--- NOTE | 2020-04-12 15:35 | ONC FU_ITS ---
[facility] Patient Note Patient: Asaf Rios Unit #: [id number]: 1950 Dictated By: Edwar AvalosDate of Visit: April 12, 2020 Onc MED Follow-Up/Prog Note Chief Complaint: Glioblastoma. 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 He has had no documented recurrence. His other medical illnesses include hypertension, hyperlipidemia, and chronic atrial fibrillation. He has suspected but apparently not documented coronary artery disease. He has on chronic anticoagulation with warfarin and aspirin. He had presented with a one-month history of headache, loss of balance, and visual changes. His brain MRI without contrast on 02/25/2020 showed a large amount of vasogenic edema throughout the right cerebrum with sulcal effacement centered predominantly in the right parietal, temporal, and occipital lobes. There was abnormal signal centrally in the parietal region measuring 4.0 x 3.0 x 4.5 cm suspicious for infiltrating neoplasm. There was mass-effect on the right lateral ventricle. The appearance was most consistent with GBM, as there did appear to be extension into the corpus callosum. Metastatic disease and or lymphoma were not excluded. He was started on steroid therapy with prednisone [address] Bourgeois had seen him initially on 03/02/2020. With those findings arrangements were made for referral to Dr. Dwyer. He had further evaluation with contrast-enhanced brain MRI on 03/04/2020. It showed a large infiltrating necrotic mass centered in the right parieto-occipital region with extension into the corpus callosum and into the posterior right frontoparietal junction. The appearance was most consistent with glioblastoma multiforme.there was a large amount of vasogenic edema throughout the right cerebrum with a 3 mm midline shift to the left. Edema was noted to cross the midline via the splenium of the corpus callosum. On 03/11/[address]-guided stereotactic brain biopsy. Pathology, as expected, was consistent with glioblastoma multiforme (high-grade glioma, WHO grade IV). Additional studies have been sent to [facility] and those results are pending. In the meantime, he had radiation oncology consultation with Dr. James Otero and he was advised t o pursue combination therapy with radiation and oral Temodar, as he does not appear to be a surgical candidate. His other medical illnesses include hypertension, hyperlipidemia, and chronic atrial fibrillation. He has suspected though apparently not documented coronary artery disease. He has a history of smoking for 50 years, previously up to 2 packs of cigarettes daily. He currently smokes 1/2 pack/day. Mr Rios began treatment with combined therapy with Temodar and radiation therapy on 04/05/2020. Thus far he is tolerating it relatively well per his report. He denies any nausea or vomiting. He states his appetite is good. His energy is fair. He states his dog keeps him going! He denies any diarrhea or constipation. He admits that his mouth is a little sore but he is using Biotene and brushing his tongue/palate with a soft bristle tooth brush. He states he is drinking fluids and eating ok. He denies any headaches or vision changes currently. He has had some dry skin on his hands with small fissure noted on his right thumb, it is healing well currently. He states his breathing is normal for him and he denies any angina. He does have chronic afib. His ECOG is 1. Past Medical History: Atrial fibrillation History of melanoma Hyperlipidemia Hypertension Past Surgical History: Recent biopsy of right forearm skin lesion Excision of melanoma from the right chest wall in 1992 Allergies: No Known Allergies. Medications: ALPRAZolam 1 Tablet (of 0.25 mg) Tablet Oral PRN Aspirin 1 Tablet (of 81 mg) Oral daily dilTIAZem CD 1 Capsule (of 240 mg) Capsule SR 24 HR Oral daily Spironolactone 1 Tablet (of 25 mg) Oral daily Temozolomide 150 (140 mg) Capsule Oral daily on - for 30 days traMADol HCl 1 Tablet (of 50 mg) Oral PRN Warfarin Sodium 1 Tablet (of 3 mg) Oral daily Family History: Mr. Rios's mother at age 72. Mr. Rios's father at age 70: skin cancer, and stomach cancer. Father in his 70s with stomach cancer. He also had skin cancer. Mother at age 72, cause unknown to the patient. One brother with melanoma. He has 4 other siblings who are in good health. Social History: Mr. Rios is and he is retired. He is a daily smoker who has smoked 1.0 pack/day for 50 years. He has no history of drinking. He has indicated exposure to the following products: cigarettes. Mr. Rios reports the following support systems: lives alone, supportive family/friends willing to assist with needs, and adequate transportation available for expected visits. His diet consists of regular meals. He indicates his activity level as: light exercise. Patient has decreased his smoking to 1/2 pack per day (03/22/20). Review Of Symptoms: Constitutional Denies fevers, chills, night sweats, excessive fatigue or weight loss. Allergic/Immunologic No reactions. Eyes Denies significant visual changes. No diplopia. No amaurosis. ENMT Denies changes in hearing, difficulty or changes in swallowing ability, and/or sinus drainage. He has had some soreness in his mouth with the palate being tender and dry . He is using Biotene. Endocrine No diabetes, thyroid disease or hormone replacement. Denies hot flashes or night sweats. Hematologic/Lymphatic Denies easy bruising or bleeding. The patient denies any tender or palpable lymph nodes. Respiratory Denies dyspnea on exertion, chest pain, cough or hemoptysis. Denies orthopnea. Cardiovascular Denies anginal chest pain, palpitations or orthopnea. Gastrointestinal Denies nausea, vomiting, diarrhea, GI bleeding, or constipation. Denies change in bowel habits and/or stool color, no heartburn or early satiety. Genitourinary (M) Denies hematuria, dysuria, increased frequency, urgency, hesitancy or incontinence. Musculoskeletal Denies joint pain, swelling or redness. No decreased range of motion. Integumentary Denies chronic rashes, inflammation, ulcerations or skin changes. Neurologic Denies headache, blurred vision, and no areas of focal weakness or numbness. Normal gait. No sensory problems. Psychiatric Denies insomnia, depression, chapis or mood swings. Vital Signs: Performed on April 12, 2020 13:57 Height - 66.00 in Weight - 221.2 lbs (HIGH) BSA - 2.09 sq.m BMI - 35.70 (HIGH) Temperature - 97.0 F (LOW) Pulse - 97 /min Respiration - 20 /min BP - 114/72 mm(hg) O2 Sat - 98 % Pain - 3,1 - No physically strenuous activity, but ambulatory and able to carry out light or sedentary work (e.g. office work, light house work). (ECOG) Physical Examination: Constitutional Alert, oriented, no acute distress. Skin pink, warm and dry. Head Normocephalic; atraumatic. Eyes Conjunctivae and sclerae are clear and without icterus. Pupils are reactive and equal. ENMT Grade 2 mucositis palate and tongue with mild to moderate oral Amaya is noted. Neck Supple without masses or thyromegaly. No jugular venous distension. Hematologic/Lymphatic No petechiae or purpura. No tender or palpable lymph nodes in the cervical or supraclavicular areas. Respiratory Lungs are clear to auscultation without rhonchi or wheezing. Cardiovascular Regular rate and rhythm of heart without murmurs,clicks, gallops or rubs. Abdomen Non-tender, non-distended, no masses or ascites. No guarding or rebound tenderness. No pulsatile masses. Back/Spine Non-tender to palpation. Musculoskeletal No tenderness or swelling, normal range of motion without obvious weakness. Integumentary No rashes or lesions. Neurologic No sensory or motor deficits, normal cerebellar function, normal gait. Psychiatric Alert and oriented times three. Coherent speech. Verbalizes understanding of our discussions today. Laboratory:Test performed on April 12, 2020 12:25 Sodium 134 mmol/L Potassium 4.2 mmol/L Chloride 95 mmol/L CO2 26 mmol/L Anion Gap 17.2 BUN 20 mg/dL Creatinine 0.9 mg/dL Cr Clearance (Est) 108.39 mL/min eGFR 83.4 mL/min Glucose 126 mg/dL Calcium 8.2 mg/dL Protein, Total 5.6 g/dL Albumin 4.1 g/dL Globulin 1.5 g/dL Bilirubin, Total 0.6 mg/dL ALT (SGPT) 28 U/L AST (SGOT) 23 U/L Alkaline Phosphatase 49 IU/L WBC 18.7 10 3/uL RBC 5.19 10 6/uL HGB 15.7 g/dL HCT 47.3 % MCV 91.1 fL MCH 30.3 pg MCHC 33.2 g/dL RDW 12.9 % Platelet Count 149 10 3/cmm MPV 10.6 fL Neutrophils 13.7 10 3/uL Lymphocytes 3.0 10 3/uL Monocytes 1.3 10 3/uL Eosinophils 0.0 10 3/uL Basophils 0.1 10 3/uL Neutrophil % 73.3 % Lymphocyte % 16.0 % Monocyte % 6.7 % Eosinophil % 0.2 % Basophils % 0.3 % Test performed on March 29, 2020 07:46 PT 14.1 sec INR 1.4 Manual Lymphocytes 11.3 % Manual Monocytes 7.0 % Manual Eosinophils 0.1 % Manual Basophils 0.2 % Impression: 1. Patient with glioblastoma multiforme (high-grade glioma, WHO grade IV), involving the right parietal/occipital lobe of the brain, but with MRI evidence of extension into the corpus callosum and into the posterior right frontoparietal junction. 2. Results of molecular studies are currently pending. His other medical illnesses include: 3. Hypertension. 4. Hyperlipidemia. 5. Chronic atrial fibrillation-chronic anticoagulation with warfarin. 6. He has suspected but apparently not documented coronary artery disease. 7. He has a history of having undergone excision of a melanoma from the upper right chest wall in 1992. There has been no evidence of recurrence. The pathology findings were reviewed with the patient per Dr Bourgeois. As he does not appear to be a suitable candidate for surgical resection, he is recommended to undergo treatment with radiation concurrently with temozolomide chemotherapy. The temozolomide will be administered at a standard dosage of 75 mg/m??? daily during radiation followed by monthly cycles beginning at 150 mg/m??? days 1 through 5 each month for a total of 6 cycles. Mr Rios began his combined therapy on 04/05/2020. Plan: 1. Proceed with Temodar 150 mg (2 tabs of 5 mg and 1 tab of 140 mg) at bedtime on the days of radiation only (M-F). 2. He has ondansetron on hand for antiemetics if needed- thus far he has not needed it. 3. We did discuss oral care. I have encouraged him to consider using an antifungal as I am concerned that hehas mild to moderate oral yeast on his tongue and palate and he does have significant sloughing of the palate. I would classify his mucositis as grade 2 per NCI CTCAE v5.0 criteria. 4. I recommended that we treat his mucositis with either Diflucan or Nystatin and he states he would like to just try continuing with the Biotene and oral care as he currently is administering. He states he has been told that those medications have side effects and he wants to avoid them. He is on warfarin for chronic atrial fib and I suspect that there may have been some conversation regarding Diflucan and warfarin interactions in the past. I did speak with Dr. Otero in radiation oncology and asked him to reassess him at his weekly visit and discuss potential treatment at that time. I am just concerned as this is week 2 and he is already having mucositis changes. 5. Today's labs were reviewed in detail discussed with Mr. Rios and a copy was given to him. WBC 18.7, hemoglobin 15.7, platelets 149,000 neutrophils/ANC is 13,700. Creatinine 0.9 LFTs are normal. Random glucose is 126. The last INR we have on file is March 29, 2020 which time was noted that the INR was 1.4. We will plan to check CBC, CMP and INRs weekly while he is on radiation and Temodar. 6. We will plan to see him back in 1 week with labs as above. He is instructed to contact us in the interim should questions or problems arise. Signed By: Edwar Avalos-, [facility] Benji Bourgeois MD <<Signature on File>>
--- NOTE | 2020-04-13 11:26 | ONCRAD TMN_ITS ---
Radiation Oncology Weekly Treatment Management Patient: Asaf Rios MR#: [id number] : 1950> Age: 69> Sex: Male Dictated by: Dr. James Otero Date of Service: 04/13/2020 Referring Physician(s) : Dr. Jose Quiles Primary Diagnosis: C71.8 - Malignant neoplasm of overlapping sites of brain, Diagnosed 03/22/2020 (Active) R93.0 - Abnormal findings on diagnostic imaging of skull and head, not elsewhere classified, Diagnosed 03/02/2020 (Active) Z85.820 - Personal history of malignant melanoma of skin, Diagnosed 03/02/2020 (Active) Radiotherapy to date: Course: GBM, Treatment Site: [id number], Ref. ID: [id number], Energy: 15X/6X, Dose/Fx (cGy): 200, #Fx: , Dose Correction (cGy): 0, Total Dose (cGy): 1,400, Start Date: 04/05/2020, Elapsed Days: 8 Current Complaints/Interval History: He notes minimal headaches no nausea or vomiting. His taste is good. He does note some sore throat and dry mouth.. He has visual changes are on changed. He was seen by his primary physician yesterday and was found to have ear infection and antibiotics were called in to [facility] for him Constitutional Denies fatigue and change in weight. ENAL Complains of ear pain was diagnosed with an ear infection for which he is being treated by his PCP and mouth dryness for which he is using biotine. Gastrointestinal Denies constipation and diarrhea. Neurologic Complains of headaches occassionally. Denies abnormal gait. Psychiatric Denies depression. Current Medications: ALPRAZolam, aspirin, decadron, dilTIAZem CD, nystatin, ondansetron, spironolactone, temozolomide, traMADol HCl, warfarin Sodium. Allergies: No Known Allergies Vital Signs: Performed on 04/13/2020 9:05 AM Temperature - 97.5 f, Pulse - 76, Respiration - 18, O2 Sat - 98 %, Pain - 0 and BP - 103/ 74 mm(hg). Physical Exam: Scalp was normal in appearance no erythema or alopecia noted. Oral cavity revealed a coated tongue and clear white plaques on his soft and hard palate. Performance Status: 1 - No physically strenuous activity, but ambulatory and able to carry out light or sedentary work (e.g. office work, light house work). (ECOG) Lab: None pending in Radiation Oncology. Test performed on 03/29/2020 7:46 AM Manual Lymphocytes - 11.3 % (low), PT - 14.1 sec (high), INR - 1.4 (low), Test performed on 04/12/2020 12:25 PM WBC - 18.7 10 3/ul (high), MPV - 10.6 fl (high), Neutrophils - 13.7 10 3/ul (high), Monocytes - 1.3 10 3/ul (high), Sodium - 134 mmol/l (low), Chloride - 95 mmol/l (low), eGFR - 83.4 ml/min (low), Glucose - 126 mg/dl (high), Calcium - 8.2 mg/dl (low) and Protein, Total - 5.6 g/dl (low). Imaging: No new diagnostic imaging was performed since the last weekly treatment visit. All radiation therapy related imaging (including but not limited to kV, MV, and CBCT generated images) was reviewed. Appropriate changes, if any, were made to assure accurate target localization. Impression/Plan: Glioblastoma multiforma of the right occipital region. He is tolerating radiation and temozolomide well. He does have oral candidiasis which is symptomatic. I outlined to him that Diflucan orally does interfere with his warfarin which did concern him in the past. We will prescribe nystatin swish and swallow for oral candidiasis. Nystatin has no known drug interactions. This was discussed with the patient. He will also initiate antibiotics as prescribed by his primary physician. Nystatin was called into [facility] today. We will continue treatment as planned. CPT: 55933 Signed by: Dr. James Otero>04/13/2020 11:24:56 AM <<Signature on File>>
[2020-04-20 10:13] LABS: Basophils % 0.1 %; Hemoglobin 13.4 g/dL (11.7-16.6); Lymphocytes # 0.9 10^3/uL (0.8-4.8); Lymphocytes % 6.2 %; Mean Corpuscular HGB Conc 33.5 g/dL (30.0-36.0); Mean Corpuscular Hemoglobin 30.7 pg (28.0-34.0); Mean Corpuscular Volume 91.7 fL (80-94); Mean Platelet Volume 10.6 fL (7.4-10.4); Monocytes # 0.6 10^3/uL (0.2-0.9); Monocytes % 4.3 %; Neutrophils # 12.2 10^3/uL (1.8-7.7); Neutrophils % 88.4 %; Nucleated Red Blood Cells % 0 %; Platelet Count 182 10^3/cmm (130-400); Red Blood Count 4.36 10^6/uL (4.1-5.3); Red Cell Distribution Width 13.3 % (12.1-15.1); White Blood Count 13.8 10^3/uL (4.0-10.0)
[2020-04-20 10:29] LABS: INR 1.62 (0.8-1.2)
[2020-04-20 11:36] LABS: Alanine Aminotransferase 25 U/L (0-41); Albumin Level 3.8 g/dL (3.5-5.2); Alkaline Phosphatase 46 IU/L (40-130); Anion Gap 18.3 (5-19); Aspartate Amino Transferase 19 U/L (0-40); Blood Urea Nitrogen 20 mg/dL (8-23); Calcium 9.1 mg/dL (8.5-10.5); Carbon Dioxide 20 mmol/L (22-29); Chloride 100 mmol/L (98-107); Globulin 2.6 g/dL (1.3-4.6); Glomerular Filtration Rate 95.6 mL/min (90-130); Glucose 189 mg/dL (65-115); Osmolality Calculated 280 mOsm/kg (285-295); Potassium 4.3 mmol/L (3.5-5.1); Sodium 134 mmol/L (136-145); Total Bilirubin 0.3 mg/dL (0.15-1.2); Total Protein 6.4 g/dL (6.6-8.7)
--- NOTE | 2020-04-20 11:42 | ONCRAD TMN_ITS ---
Radiation Oncology Weekly Treatment Management Patient: Asaf Rios MR#: [id number] : 1950> Age: 69> Sex: Male Dictated by: Dr. James Otero Date of Service: 04/20/2020 Referring Physician(s) : Dr. Jose Quiles Primary Diagnosis: C71.8 - Malignant neoplasm of overlapping sites of brain, Diagnosed 03/22/2020 (Active) R93.0 - Abnormal findings on diagnostic imaging of skull and head, not elsewhere classified, Diagnosed 03/02/2020 (Active) Z85.820 - Personal history of malignant melanoma of skin, Diagnosed 03/02/2020 (Active) Radiotherapy to date: Course: GBM, Treatment Site: [id number], Ref. ID: [id number], Energy: 15X/6X, Dose/Fx (cGy): 200, #Fx: , Dose Correction (cGy): 0, Total Dose (cGy): 2,200, Start Date: 04/05/2020, Elapsed Days: 15 Current Complaints/Interval History: Mr. Rios noted recurrent bilateral leg swelling which she has had in the past. He uses support hose and keep his legs elevated. He has no shortness of breath or chest pain. He is already on warfarin. He has been on nystatin swish and swallow. He is eating well. He has no change in the vision and has no other neurologic symptoms or headache. Constitutional Complains of mild fatigue. Denies lack of appetite, fever and night sweats. Eyes Denies blurred vision and double vision. ENMT Complains of mouth dryness and altered taste off and on. Cardiovascular Complains of edema in both legs that started last week. Gastrointestinal Denies nausea and vomiting. Neurologic Complains of abnormal gait and headaches occasionally. Denies disorientation and dizziness. Current Medications: ALPRAZolam, aspirin, decadron, dilTIAZem CD, nystatin, ondansetron, spironolactone, temozolomide, traMADol HCl, warfarin Sodium. Allergies: No Known Allergies Vital Signs: Performed on 04/20/2020 8:43 AM BMI - 35.186 kg/m2 (high), Height - 66.00 in, Weight - 218.0 lbs, Temperature - 97.2 f, Pulse - 83, Respiration - 18, O2 Sat - 100 %, Pain - 0 and BP - 103/ 70 mm(hg). Physical Exam: Appears stable, no skin erythema or desquamation. He had no scalp erythema. Oral cavity revealed no residual candidiasis. Performance Status: 1 - No physically strenuous activity, but ambulatory and able to carry out light or sedentary work (e.g. office work, light house work). (ECOG) Lab: None pending in Radiation Oncology. Test performed on 03/29/2020 7:46 AM Manual Lymphocytes - 11.3 % (low), PT - 14.1 sec (high), INR - 1.4 (low), Test performed on 04/12/2020 12:25 PM WBC - 18.7 10 3/ul (high), MPV - 10.6 fl (high), Neutrophils - 13.7 10 3/ul (high), Monocytes - 1.3 10 3/ul (high), Sodium - 134 mmol/l (low), Chloride - 95 mmol/l (low), eGFR - 83.4 ml/min (low), Glucose - 126 mg/dl (high), Calcium - 8.2 mg/dl (low) and Protein, Total - 5.6 g/dl (low). Imaging: No new diagnostic imaging was performed since the last weekly treatment visit. All radiation therapy related imaging (including but not limited to kV, MV, and CBCT generated images) was reviewed. Appropriate changes, if any, were made to assure accurate target localization. Impression/Plan: Tolerating treatment well with expected side effects. Continue treatment as planned. CPT: 11887 Signed by: Dr. James Otero>04/20/2020 11:41:15 AM <<Signature on File>>
--- NOTE | 2020-04-26 10:14 | ONC FU_ITS ---
[facility] Patient Note Patient: Asaf Rios Unit #: [id number]: 1950 Dictated By: Edwar AvalosDate of Visit: April 21, 2020 Onc MED Follow-Up/Prog Note Chief Complaint: Glioblastoma. 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 He has had no documented recurrence. His other medical illnesses include hypertension, hyperlipidemia, and chronic atrial fibrillation. He has suspected but apparently not documented coronary artery disease. He has on chronic anticoagulation with warfarin and aspirin. He had presented with a one-month history of headache, loss of balance, and visual changes. His brain MRI without contrast on 02/25/2020 showed a large amount of vasogenic edema throughout the right cerebrum with sulcal effacement centered predominantly in the right parietal, temporal, and occipital lobes. There was abnormal signal centrally in the parietal region measuring 4.0 x 3.0 x 4.5 cm suspicious for infiltrating neoplasm. There was mass-effect on the right lateral ventricle. The appearance was most consistent with GBM, as there did appear to be extension into the corpus callosum. Metastatic disease and or lymphoma were not excluded. He was started on steroid therapy with prednisone [address] Bourgeois had seen him initially on 03/02/2020. With those findings arrangements were made for referral to Dr. Dwyer. He had further evaluation with contrast-enhanced brain MRI on 03/04/2020. It showed a large infiltrating necrotic mass centered in the right parieto-occipital region with extension into the corpus callosum and into the posterior right frontoparietal junction. The appearance was most consistent with glioblastoma multiforme.there was a large amount of vasogenic edema throughout the right cerebrum with a 3 mm midline shift to the left. Edema was noted to cross the midline via the splenium of the corpus callosum. On 03/11/[address]-guided stereotactic brain biopsy. Pathology, as expected, was consistent with glioblastoma multiforme (high-grade glioma, WHO grade IV). Additional studies have been sent to [facility] and those results are pending. In the meantime, he had radiation oncology consultation with Dr. James Otero and he was advised t o pursue combination therapy with radiation and oral Temodar, as he does not appear to be a surgical candidate. His other medical illnesses include hypertension, hyperlipidemia, and chronic atrial fibrillation. He has suspected though apparently not documented coronary artery disease. He has a history of smoking for 50 years, previously up to 2 packs of cigarettes daily. He currently smokes 1/2 pack/day. Mr Rios began treatment with combined therapy with Temodar and radiation therapy on 04/05/2020. Thus far he is tolerating it relatively well per his report. He denies any nausea or vomiting. He states his appetite is good. His energy is fair. He denies any diarrhea or constipation. He admits that his mouth is a little bit better. He deues at taste changes. He states he is drinking fluids and eating ok. He denies any headaches or vision changes currently. He has had some dry skin on his hands with small fissure noted on his right thumb, it is healing well currently. This has improved since last week. He states his breathing is normal for him and he denies any angina. He does have chronic afib. His ECOG is 1. Past Medical History: Atrial fibrillation History of melanoma Hyperlipidemia Hypertension Past Surgical History: Recent biopsy of right forearm skin lesion Excision of melanoma from the right chest wall in 1992 Allergies: No Known Allergies. Medications: ALPRAZolam 1 Tablet (of 0.25 mg) Tablet Oral PRN Aspirin 1 Tablet (of 81 mg) Oral daily dilTIAZem CD 1 Capsule (of 240 mg) Capsule SR 24 HR Oral daily Spironolactone 1 Tablet (of 25 mg) Oral daily Temozolomide 150 (140 mg) Capsule Oral daily on - for 30 days traMADol HCl 1 Tablet (of 50 mg) Oral PRN Warfarin Sodium 1 Tablet (of 3 mg) Oral daily Family History: Mr. Rios's mother at age 72. Mr. Rios's father at age 70: skin cancer, and stomach cancer. Father in his 70s with stomach cancer. He also had skin cancer. Mother at age 72, cause unknown to the patient. One brother with melanoma. He has 4 other siblings who are in good health. Social History: Mr. Rios is and he is retired. He is a daily smoker who has smoked 1.0 pack/day for 50 years. He has no history of drinking. He has indicated exposure to the following products: cigarettes. Mr. Rios reports the following support systems: lives alone, supportive family/friends willing to assist with needs, and adequate transportation available for expected visits. His diet consists of regular meals. He indicates his activity level as: light exercise. Patient has decreased his smoking to 1/2 pack per day (03/22/20). Review Of Symptoms: Constitutional Denies fevers, chills, night sweats, excessive fatigue or weight loss. Allergic/Immunologic No reactions. Eyes Denies significant visual changes. No diplopia. No amaurosis. ENMT Denies changes in hearing, difficulty or changes in swallowing ability, and/or sinus drainage. Mouth seems to be better overall. Endocrine No diabetes, thyroid disease or hormone replacement. Denies hot flashes or night sweats. Hematologic/Lymphatic Denies easy bruising or bleeding. The patient denies any tender or palpable lymph nodes. Respiratory Denies dyspnea on exertion, chest pain, cough or hemoptysis. Denies orthopnea. Cardiovascular Denies anginal chest pain, palpitations or orthopnea. Gastrointestinal Denies nausea, vomiting, diarrhea, GI bleeding, or constipation. Denies change in bowel habits and/or stool color, no heartburn or early satiety. Genitourinary (M) Denies hematuria, dysuria, increased frequency, urgency, hesitancy or incontinence. Musculoskeletal Denies joint pain, swelling or redness. No decreased range of motion. Integumentary Denies chronic rashes, inflammation, ulcerations or skin changes. Neurologic Denies headache, blurred vision, and no areas of focal weakness or numbness. Normal gait. No sensory problems. Psychiatric Denies insomnia, depression, chapis or mood swings. Vital Signs: ,1 - No physically strenuous activity, but ambulatory and able to carry out light or sedentary work (e.g. office work, light house work). (ECOG) Physical Examination: Constitutional Alert, oriented, no acute distress. Skin pink, warm and dry. Head Normocephalic; atraumatic. Eyes Conjunctivae and sclerae are clear and without icterus. Pupils are reactive and equal. ENMT Slight thrush noted on tongue and palate, but improved from last visit. Neck Supple without masses or thyromegaly. No jugular venous distension. Hematologic/Lymphatic No petechiae or purpura. No tender or palpable lymph nodes in the cervical or supraclavicular areas. Respiratory Lungs are clear to auscultation without rhonchi or wheezing. Cardiovascular Regular rate and rhythm of heart without murmurs,clicks, gallops or rubs. Abdomen Non-tender, non-distended, no masses or ascites. No guarding or rebound tenderness. No pulsatile masses. Back/Spine Non-tender to palpation. Musculoskeletal No tenderness or swelling, normal range of motion without obvious weakness. Integumentary No rashes or lesions. Neurologic No sensory or motor deficits, normal cerebellar function, normal gait. Psychiatric Alert and oriented times three. Coherent speech. Verbalizes understanding of our discussions today. Laboratory:Test performed on April 20, 2020 11:07 Sodium 134 mmol/L Potassium 4.3 mmol/L Chloride 100 mmol/L CO2 20 mmol/L Anion Gap 18.3 BUN 20 mg/dL Creatinine 0.8 mg/dL Cr Clearance (Est) 121.9400 mL/min eGFR 95.6 mL/min Glucose 189 mg/dL Calcium 9.1 mg/dL Protein, Total 6.4 g/dL Albumin 3.8 g/dL Globulin 2.6 g/dL Bilirubin, Total 0.3 mg/dL ALT (SGPT) 25 U/L AST (SGOT) 19 U/L Alkaline Phosphatase 46 IU/L Test performed on April 12, 2020 12:25 WBC 18.7 10 3/uL RBC 5.19 10 6/uL HGB 15.7 g/dL HCT 47.3 % MCV 91.1 fL MCH 30.3 pg MCHC 33.2 g/dL RDW 12.9 % Platelet Count 149 10 3/cmm MPV 10.6 fL Neutrophils 13.7 10 3/uL Lymphocytes 3.0 10 3/uL Monocytes 1.3 10 3/uL Eosinophils 0.0 10 3/uL Basophils 0.1 10 3/uL Neutrophil % 73.3 % Lymphocyte % 16.0 % Monocyte % 6.7 % Eosinophil % 0.2 % Basophils % 0.3 % Impression: 1. Patient with glioblastoma multiforme (high-grade glioma, WHO grade IV), involving the right parietal/occipital lobe of the brain, but with MRI evidence of extension into the corpus callosum and into the posterior right frontoparietal junction. 2. Results of molecular studies are currently pending. His other medical illnesses include: 3. Hypertension. 4. Hyperlipidemia. 5. Chronic atrial fibrillation-chronic anticoagulation with warfarin. 6. He has suspected but apparently not documented coronary artery disease. 7. He has a history of having undergone excision of a melanoma from the upper right chest wall in 1992. There has been no evidence of recurrence. The pathology findings were reviewed with the patient per Dr Bourgeois. As he does not appear to be a suitable candidate for surgical resection, he is recommended to undergo treatment with radiation concurrently with temozolomide chemotherapy. The temozolomide will be administered at a standard dosage of 75 mg/m??? daily during radiation followed by monthly cycles beginning at 150 mg/m??? days 1 through 5 each month for a total of 6 cycles. Mr Rios began his combined therapy on 04/05/2020. He is tolerating it very well thus far. Plan: 1. Proceed with Temodar 150 mg (2 tabs of 5 mg and 1 tab of 140 mg) at bedtime on the days of radiation only (M-F). 2. He has ondansetron on hand for antiemetics if needed- thus far he has not needed it. 3. Continue using nystatin as needed. 4. We will refill his Temodar to last through his radiation treatments. 5. April 20, 2020 labs were reviewed in detail and discussed with Mr. Rios and a copy was given to him. WBC 13.8, hemoglobin 13.4, platelets 182,000 neutrophils/ANC is 12,100. Creatinine 0.8 LFTs are normal. Random glucose is 126. INR 1.62-faxed to Dr Quiles. We will plan to check CBC, CMP and INRs weekly while he is on radiation and Temodar. 6. We will plan to see him back in 1 week with labs as above. He was instructed to contact us in the interim should questions or problems arise. Signed By: Edwar Avalos-, [facility] Benji Bourgeois MD <<Signature on File>>
== END 2020-04-25 23:59 | disposition home or self-care (01) ==
LOC: ONCMED 06:47
PROVIDERS: Nurse Practitioner; Absent Provider Radiology Radiation Oncology; PCP Family Medicine; Visit Provider Radiology Radiation Oncology
DX: Z51.0 Encounter for antineoplastic radiation therapy (principal); C71.8 Malignant neoplasm of overlapping sites of brain; K12.30 Oral mucositis (ulcerative), unspecified; B37.0 Candidal stomatitis; H66.90 Otitis media, unspecified, unspecified ear; R60.0 Localized edema; M79.89 Other specified soft tissue disorders; Z79.01 Long term (current) use of anticoagulants; F17.210 Nicotine dependence, cigarettes, uncomplicated; I10 Essential (primary) hypertension; E78.5 Hyperlipidemia, unspecified; I48.20 Chronic atrial fibrillation, unspecified; K21.9 Gastro-esophageal reflux disease without esophagitis; Z85.820 Personal history of malignant melanoma of skin; Z79.899 Other long term (current) drug therapy
CPT/HCPCS: 36415; 77300; 77301; 77336; 77338; 77387; 77412; 80053; 85025; 85610; 99214

== ENCOUNTER 2020-05-17 06:47 | Outpatient (RCR) | payer MEDICARE, SELFPAY ==
--- NOTE | 2020-04-27 09:39 | ONCRAD TMN_ITS ---
Radiation Oncology Weekly Treatment Management Patient: Asaf Rios MR#: [id number] : 1950 Age: 69 Sex: Male Dictated by: Dr. James Otero Date of Service: 04/27/2020 Referring Physician(s) : Dr. Jose Quiles Primary Diagnosis: C71.8 - Malignant neoplasm of overlapping sites of brain, Diagnosed 03/22/2020 (Active) R93.0 - Abnormal findings on diagnostic imaging of skull and head, not elsewhere classified, Diagnosed 03/02/2020 (Active) Z85.820 - Personal history of malignant melanoma of skin, Diagnosed 03/02/2020 (Active) Radiotherapy to date: Course: GBM, Treatment Site: [id number], Ref. ID: [id number], Energy: 15X/6X, Dose/Fx (cGy): 200, #Fx: , Dose Correction (cGy): 0, Total Dose (cGy): 3,200, Start Date: 04/05/2020, Elapsed Days: 22 Current Complaints/Interval History: Currently he notes no headaches. His appetite is good he is sleeping well. His lower extremity swelling is stable. He is walking a lot. He does note some mild soreness. Constitutional Complains of mild fatigue. Complains of change in weight down 5.4 lbs. since last OTV. Patient says his appetite is good but eating healthier. Denies lack of appetite, fever and night sweats. ENMT Complains of mouth dryness and stomatitis. Denies ear pain and altered taste. Cardiovascular Complains of edema in the lower legs. Gastrointestinal Denies nausea and vomiting. Neurologic Complains of dizziness with bending over and standing up too quickly. Denies disorientation and headaches. Current Medications: ALPRAZolam, aspirin, decadron, dilTIAZem CD, nystatin, ondansetron, spironolactone, temozolomide, traMADol HCl, warfarin Sodium. Allergies: No Known Allergies Vital Signs: Performed on 04/27/2020 8:45 AM Height - 66.00 in, Weight - 212.6 lbs, BMI - 34.315 kg/m2 (high), Temperature - 98.0 f, Pulse - 68, Respiration - 20, O2 Sat - 98 %, Pain - 0 and BP - 104/ 77 mm(hg). Physical Exam: Appears stable, no skin erythema or desquamation. Scalp is clear he did choose to preemptively cut his hair. Oral cavity revealed recurrent white plaques over the buccal mucosa and palate Performance Status: 1 - No physically strenuous activity, but ambulatory and able to carry out light or sedentary work (e.g. office work, light house work). (ECOG) Lab: None pending in Radiation Oncology. Imaging: No new diagnostic imaging was performed since the last weekly treatment visit. All radiation therapy related imaging (including but not limited to kV, MV, and CBCT generated images) was reviewed. Appropriate changes, if any, were made to assure accurate target localization. Impression/Plan: Tolerating treatment well with expected side effects. Continue treatment as planned. He does have recurrent oral candidiasis. We will renew nystatin and call that into the pharmacy. CPT: 94230 Signed by: Dr. James Otero>04/27/2020 9:37:59 AM <<Signature on File>>
[2020-04-28 08:57] LABS: Hematocrit 43.8 % (42.0-52.0); Hemoglobin 14.7 g/dL (11.7-16.6); Mean Corpuscular HGB Conc 33.6 g/dL (30.0-36.0); Mean Corpuscular Hemoglobin 30.8 pg (28.0-34.0); Mean Corpuscular Volume 91.6 fL (80-94); Mean Platelet Volume 10.3 fL (7.4-10.4); Nucleated Red Blood Cells % 0 %; Platelet Count 199 10^3/cmm (130-400); Red Blood Count 4.78 10^6/uL (4.1-5.3); Red Cell Distribution Width 13.3 % (12.1-15.1); White Blood Count 20.1 10^3/uL (4.0-10.0)
[2020-04-28 09:14] LABS: Alanine Aminotransferase 19 U/L (0-41); Albumin Level 3.7 g/dL (3.5-5.2); Alkaline Phosphatase 57 IU/L (40-130); Anion Gap 17.4 (5-19); Aspartate Amino Transferase 14 U/L (0-40); Blood Urea Nitrogen 25 mg/dL (8-23); Calcium 8.8 mg/dL (8.5-10.5); Carbon Dioxide 23 mmol/L (22-29); Chloride 96 mmol/L (98-107); Globulin 1.9 g/dL (1.3-4.6); Glomerular Filtration Rate 83.4 mL/min (90-130); Glucose 257 mg/dL (65-115); Osmolality Calculated 280 mOsm/kg (285-295); Potassium 4.4 mmol/L (3.5-5.1); Sodium 132 mmol/L (136-145); Total Bilirubin 0.5 mg/dL (0.15-1.2); Total Protein 5.6 g/dL (6.6-8.7)
[2020-04-28 09:34] LABS: Slide Review Slide Review Perform
[2020-04-28 09:36] LABS: Absolute Neutrophil 14.7 10^3/cmm (1.4-6.5); Absolute Segmented Neutrophil 11.6 10/cmm (1.6-7.1); Lymphocytes 11 %; Lymphocytes Absolute 2.4 10^3/cmm (1.2-3.4); Platelet Estimate Normal (Normal); Segmented Neutrophils 58 %; Total Cells Counted 100 (0-100)
--- NOTE | 2020-04-29 09:41 | ONC FU_ITS ---
[facility] Patient Note Patient: Asaf Rios Unit #: [id number]: 1950 Dictated By: Edwar AvalosDate of Visit: Apr 29, 2020 Onc MED Follow-Up/Prog Note Chief Complaint: Glioblastoma. 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 He has had no documented recurrence. His other medical illnesses include hypertension, hyperlipidemia, and chronic atrial fibrillation. He has suspected but apparently not documented coronary artery disease. He has on chronic anticoagulation with warfarin and aspirin. He had presented with a one-month history of headache, loss of balance, and visual changes. His brain MRI without contrast on 02/25/2020 showed a large amount of vasogenic edema throughout the right cerebrum with sulcal effacement centered predominantly in the right parietal, temporal, and occipital lobes. There was abnormal signal centrally in the parietal region measuring 4.0 x 3.0 x 4.5 cm suspicious for infiltrating neoplasm. There was mass-effect on the right lateral ventricle. The appearance was most consistent with GBM, as there did appear to be extension into the corpus callosum. Metastatic disease and or lymphoma were not excluded. He was started on steroid therapy with prednisone [address] Bourgeois had seen him initially on 03/02/2020. With those findings arrangements were made for referral to Dr. Dwyer. He had further evaluation with contrast-enhanced brain MRI on 03/04/2020. It showed a large infiltrating necrotic mass centered in the right parieto-occipital region with extension into the corpus callosum and into the posterior right frontoparietal junction. The appearance was most consistent with glioblastoma multiforme.there was a large amount of vasogenic edema throughout the right cerebrum with a 3 mm midline shift to the left. Edema was noted to cross the midline via the splenium of the corpus callosum. On 03/11/[address]-guided stereotactic brain biopsy. Pathology, as expected, was consistent with glioblastoma multiforme (high-grade glioma, WHO grade IV). Additional studies have been sent to [facility] and those results are pending. In the meantime, he had radiation oncology consultation with Dr. James Otero and he was advised t o pursue combination therapy with radiation and oral Temodar, as he does not appear to be a surgical candidate. His other medical illnesses include hypertension, hyperlipidemia, and chronic atrial fibrillation. He has suspected though apparently not documented coronary artery disease. He has a history of smoking for 50 years, previously up to 2 packs of cigarettes daily. He currently smokes 1/2 pack/day. Mr Rios began treatment with combined therapy with Temodar and radiation therapy on 04/05/2020. Thus far he is tolerating it relatively well. He denies any nausea or vomiting. He states his appetite is good-he is eating 3 meals and a light snack in the afternoon. His energy is good. He states he can do his chores without assistance. He denies any diarrhea or constipation. He admits that his mouth is still a little sore, but he has refilled the mouth medicine . He denies any taste changes. He denies any headaches or vision changes currently. He has had some dry skin on his hands with small fissure noted on his right thumb, it is improved this week. His random glucose from lab draw on 04/28/2020 was elevated at 257. He states he has been eating about the same foods everyday. He is on dexamethasone 4 mg daily. He states he was wondering when he could get off of it. He is having dry mouth and some occassional problems sleeping. His ECOG is 1. Past Medical History: Atrial fibrillation History of melanoma Hyperlipidemia Hypertension Past Surgical History: Recent biopsy of right forearm skin lesion Excision of melanoma from the right chest wall in 1992 Allergies: No Known Allergies. Medications: ALPRAZolam 1 Tablet (of 0.25 mg) Tablet Oral PRN Aspirin 1 Tablet (of 81 mg) Oral daily dilTIAZem CD 1 Capsule (of 240 mg) Capsule SR 24 HR Oral daily Spironolactone 1 Tablet (of 25 mg) Oral daily Temozolomide 150 (140 mg) Capsule Oral daily on for 30 days traMADol HCl 1 Tablet (of 50 mg) Oral PRN Warfarin Sodium 1 Tablet (of 4 mg) Oral daily Family History: Mr. Rios's mother at age 72. Mr. Rios's father at age 70: skin cancer, and stomach cancer. Father in his 70s with stomach cancer. He also had skin cancer. Mother at age 72, cause unknown to the patient. One brother with melanoma. He has 4 other siblings who are in good health. Social History: Mr. Rios is and he is retired. He is a daily smoker who has smoked 0.5 packs/day for 50 years. He has no history of drinking. He has indicated exposure to the following products: cigarettes. Mr. Rios reports the following support systems: lives alone, supportive family/friends willing to assist with needs, and adequate transportation available for expected visits. His diet consists of regular meals. He indicates his activity level as: light exercise. Patient has decreased his smoking to 1/2 pack per day (03/22/20). Review Of Symptoms: Constitutional Denies fevers, chills, night sweats, excessive fatigue or weight loss. Allergic/Immunologic No reactions. Eyes Denies significant visual changes. No diplopia. No amaurosis. ENMT Denies changes in hearing, difficulty or changes in swallowing ability, and/or sinus drainage. Mouth is not sore and he is eating/drinking good. He states he did refill his mouth medicine and will start it back today. Hematologic/Lymphatic Denies easy bruising or bleeding. The patient denies any tender or palpable lymph nodes. Respiratory Denies dyspnea on exertion, chest pain, cough or hemoptysis. Denies orthopnea. Cardiovascular Denies anginal chest pain, palpitations or orthopnea. Gastrointestinal Denies nausea, vomiting, diarrhea, GI bleeding, or constipation. Denies change in bowel habits and/or stool color, no heartburn or early satiety. Genitourinary (M) Denies hematuria, dysuria, increased frequency, urgency, hesitancy or incontinence. Musculoskeletal Denies joint pain, swelling or redness. No decreased range of motion. Integumentary Denies chronic rashes, inflammation, ulcerations or skin changes. Neurologic Denies headache, blurred vision, and no areas of focal weakness or numbness. Normal gait. No sensory problems. Psychiatric Denies insomnia, depression, chapis or mood swings. Vital Signs: Performed on Apr 29, 2020 09:01 Height - 66.00 in Weight - 212.6 lbs BSA - 2.05 sq.m BMI - 34.31 (HIGH) Temperature - 97.2 F (LOW) Pulse - 76 /min Respiration - 20 /min BP - 118/69 mm(hg) O2 Sat - 98 % Pain - 0,1 - No physically strenuous activity, but ambulatory and able to carry out light or sedentary work (e.g. office work, light house work). (ECOG) Physical Examination: Constitutional Alert, oriented, no acute distress. Skin pink, warm and dry. Head Normocephalic; atraumatic. Eyes Conjunctivae and sclerae are clear and without icterus. Pupils are reactive and equal. ENMT Slight thrush noted on palate. His tongue is still raw looking but no yeast noted today Neck Supple without masses or thyromegaly. No jugular venous distension. Hematologic/Lymphatic No petechiae or purpura. No tender or palpable lymph nodes in the cervical or supraclavicular areas. Respiratory Lungs are clear to auscultation without rhonchi or wheezing. Cardiovascular Regular rate and rhythm of heart without murmurs,clicks, gallops or rubs. Back/Spine Non-tender to palpation. Musculoskeletal No tenderness or swelling, normal range of motion without obvious weakness. Integumentary No rashes or lesions. Neurologic No sensory or motor deficits, normal cerebellar function, normal gait. Psychiatric Alert and oriented times three. Coherent speech. Verbalizes understanding of our discussions today. Laboratory:Test performed on April 20, 2020 11:07 Sodium 134 mmol/L Potassium 4.3 mmol/L Chloride 100 mmol/L CO2 20 mmol/L Anion Gap 18.3 BUN 20 mg/dL Creatinine 0.8 mg/dL Cr Clearance (Est) 121.9400 mL/min eGFR 95.6 mL/min Glucose 189 mg/dL Calcium 9.1 mg/dL Protein, Total 6.4 g/dL Albumin 3.8 g/dL Globulin 2.6 g/dL Bilirubin, Total 0.3 mg/dL ALT (SGPT) 25 U/L AST (SGOT) 19 U/L Alkaline Phosphatase 46 IU/L Test performed on April 12, 2020 12:25 WBC 18.7 10 3/uL RBC 5.19 10 6/uL HGB 15.7 g/dL HCT 47.3 % MCV 91.1 fL MCH 30.3 pg MCHC 33.2 g/dL RDW 12.9 % Platelet Count 149 10 3/cmm MPV 10.6 fL Neutrophils 13.7 10 3/uL Lymphocytes 3.0 10 3/uL Monocytes 1.3 10 3/uL Eosinophils 0.0 10 3/uL Basophils 0.1 10 3/uL Neutrophil % 73.3 % Lymphocyte % 16.0 % Monocyte % 6.7 % Eosinophil % 0.2 % Basophils % 0.3 % Test performed on March 29, 2020 07:46 PT 14.1 sec INR 1.4 Manual Lymphocytes 11.3 % Manual Monocytes 7.0 % Manual Eosinophils 0.1 % Manual Basophils 0.2 % Impression: 1. Patient with glioblastoma multiforme (high-grade glioma, WHO grade IV), involving the right parietal/occipital lobe of the brain, but with MRI evidence of extension into the corpus callosum and into the posterior right frontoparietal junction. 2. Results of molecular studies are currently pending. His other medical illnesses include: 3. Hypertension. 4. Hyperlipidemia. 5. Chronic atrial fibrillation-chronic anticoagulation with warfarin. 6. He has suspected but apparently not documented coronary artery disease. 7. He has a history of having undergone excision of a melanoma from the upper right chest wall in 1992. There has been no evidence of recurrence. The pathology findings were reviewed with the patient per Dr Bourgeois. As he does not appear to be a suitable candidate for surgical resection, he is recommended to undergo treatment with radiation concurrently with temozolomide chemotherapy. The temozolomide will be administered at a standard dosage of 75 mg/m??? daily during radiation followed by monthly cycles beginning at 150 mg/m??? days 1 through 5 each month for a total of 6 cycles. Mr Rios began his combined therapy on 04/05/2020. He is tolerating it very well thus far. Plan: 1. Proceed with Temodar 150 mg (2 tabs of 5 mg and 1 tab of 140 mg) at bedtime on the days of radiation only (-). 2. He has ondansetron on hand for antiemetics if needed- thus far he has not needed it. 3. Encouraged to use nystatin four times daily. 4. We will decrease the dexamethasone. He is unsure if he has tablets or capsules for the dexamethasone. If he has a tablets that he cut them in half and is to half a tablet daily for the next week however if he cannot cut them we will go to 4 mg every other day until we see him back next week. 5. April 28, 2020 labs were reviewed in detail and discussed with Mr. Rios and a copy was given to him. WBC 20.1, hemoglobin 14.7 platelets 199,000 neutrophils/ANC is 14,700. Creatinine 0.9 LFTs are normal. Random glucose was 257. I We will plan to check CBC, CMP and INRs weekly while he is on radiation and Temodar. 6. We will plan to see him back in 1 week with labs as above. He was instructed to contact us in the interim should questions or problems arise. 7. Hopefully weaning him off the dexamethasone his blood sugar will improve, his white count will trend toward normal range and he will have less dry mouth/skin. Signed By: Edwar Avalos-, AOCNP Benji Bourgeois MD <<Signature on File>>
--- NOTE | 2020-05-04 09:49 | N.ONRAD NP_ITS ---
Radiation Oncology Weekly Treatment Management Patient: Asaf Rios MR#: [id number] : 1950> Age: 69> Sex: Male Dictated by: Jessica Harris Date of Service: 05/04/2020 Referring Physician(s) : Dr. Jose Quiles Diagnosis: C71.8 - Malignant neoplasm of overlapping sites of brain, Diagnosed 03/22/2020 (Active) R93.0 - Abnormal findings on diagnostic imaging of skull and head, not elsewhere classified, Diagnosed 03/02/2020 (Active) Z85.820 - Personal history of malignant melanoma of skin, Diagnosed 03/02/2020 (Active) Patient presents today for check-up by registered nurse. The patients has had Course: GBM Treatment Site: [id number], Ref. ID: [id number], Energy: 15X/6X, Dose/Fx (cGy): 200, #Fx: , Dose Correction (cGy): 0, Total Dose (cGy): 4,200, Start Date: 04/05/2020, Elapsed Days: 29. Patient Has complaint of dry desquamation to the right side of the head. I have addressed complaints by giving the patient samples of the Aquaphor and explained how to apply it. Patient acknowledged understanding and had no other questions. Nursing assessment of patient as follows: Constitutional Complains of mild fatigue. Denies lack of appetite, fever, night sweats and change in weight. Eyes Complains of blurred vision. Denies double vision. ENMT Complains of stomatitis on the roof of the mouth. Has been using Nystatin for it. and altered taste. Integumentary Has some dry desquamation to the right side of the head. Gastrointestinal Denies nausea and vomiting. Neurologic Complains of abnormal gait occasionally with walking. Denies dizziness and headaches. Questions encouraged and answered. I encouraged patient to call with any concerns. Patient verbalized understanding and denied any further needs at this time. Vital Signs: Performed on 05/04/2020 8:52 AM BMI - 34.25 kg/m2 (high), Height - 66.00 in, Weight - 212.2 lbs, Temperature - 98.0 f, Pulse - 60, Respiration - 18, O2 Sat - 98 %, Pain - 0 and BP - 105/ 63 mm(hg)(/low). Signed by: Jessica Harris>05/04/2020 9:47:06 AM <<Signature on File>>
[2020-05-05 09:49] LABS: Hematocrit 42.1 % (42.0-52.0); Hemoglobin 14.2 g/dL (11.7-16.6); Mean Corpuscular HGB Conc 33.7 g/dL (30.0-36.0); Mean Corpuscular Hemoglobin 31.1 pg (28.0-34.0); Mean Corpuscular Volume 92.1 fL (80-94); Mean Platelet Volume 11.1 fL (7.4-10.4); Nucleated Red Blood Cells % 0 %; Platelet Count 164 10^3/cmm (130-400); Positive C 1; Positive M 1; Red Blood Count 4.57 10^6/uL (4.1-5.3); Red Cell Distribution Width 13.7 % (12.1-15.1); White Blood Count 19.2 10^3/uL (4.0-10.0)
[2020-05-05 09:57] LABS: Alanine Aminotransferase 19 U/L (0-41); Albumin Level 3.6 g/dL (3.5-5.2); Alkaline Phosphatase 58 IU/L (40-130); Anion Gap 16.2 (5-19); Aspartate Amino Transferase 13 U/L (0-40); Blood Urea Nitrogen 18 mg/dL (8-23); Calcium 9.2 mg/dL (8.5-10.5); Carbon Dioxide 24 mmol/L (22-29); Chloride 94 mmol/L (98-107); Globulin 2.2 g/dL (1.3-4.6); Glomerular Filtration Rate 95.6 mL/min (90-130); Glucose 233 mg/dL (65-115); Osmolality Calculated 274 mOsm/kg (285-295); Potassium 4.2 mmol/L (3.5-5.1); Sodium 130 mmol/L (136-145); Total Bilirubin 0.4 mg/dL (0.15-1.2); Total Protein 5.8 g/dL (6.6-8.7)
[2020-05-05 10:26] LABS: Absolute Segmented Neutrophil 14.7 10/cmm (1.6-7.1); Band Neutrophils Absolute 0.6 10^3/cmm (0.0-1.2); Segmented Neutrophils 77 %; Slide Review Slide Review Perform; Total Cells Counted 100 (0-100)
[2020-05-05 10:27] LABS: Absolute Neutrophil 15.4 10^3/cmm (1.4-6.5); Lymphocytes 10 %; Platelet Estimate Normal (Normal)
--- NOTE | 2020-05-06 12:37 | ONC FU_ITS ---
[facility] Patient Note Patient: Asaf Rios Unit #: [id number]: 1950 Dictated By: Edwar AvalosDate of Visit: May 06, 2020 Onc MED Follow-Up/Prog Note Chief Complaint: Glioblastoma. 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 He has had no documented recurrence. His other medical illnesses include hypertension, hyperlipidemia, and chronic atrial fibrillation. He has suspected but apparently not documented coronary artery disease. He has on chronic anticoagulation with warfarin and aspirin. He had presented with a one-month history of headache, loss of balance, and visual changes. His brain MRI without contrast on 02/25/2020 showed a large amount of vasogenic edema throughout the right cerebrum with sulcal effacement centered predominantly in the right parietal, temporal, and occipital lobes. There was abnormal signal centrally in the parietal region measuring 4.0 x 3.0 x 4.5 cm suspicious for infiltrating neoplasm. There was mass-effect on the right lateral ventricle. The appearance was most consistent with GBM, as there did appear to be extension into the corpus callosum. Metastatic disease and or lymphoma were not excluded. He was started on steroid therapy with prednisone [address] Bourgeois had seen him initially on 03/02/2020. With those findings arrangements were made for referral to Dr. Dwyer. He had further evaluation with contrast-enhanced brain MRI on 03/04/2020. It showed a large infiltrating necrotic mass centered in the right parieto-occipital region with extension into the corpus callosum and into the posterior right frontoparietal junction. The appearance was most consistent with glioblastoma multiforme.there was a large amount of vasogenic edema throughout the right cerebrum with a 3 mm midline shift to the left. Edema was noted to cross the midline via the splenium of the corpus callosum. On 03/11/[address]-guided stereotactic brain biopsy. Pathology, as expected, was consistent with glioblastoma multiforme (high-grade glioma, WHO grade IV). Additional studies have been sent to [facility] and those results are pending. In the meantime, he had radiation oncology consultation with Dr. James Otero and he was advised t o pursue combination therapy with radiation and oral Temodar, as he does not appear to be a surgical candidate. His other medical illnesses include hypertension, hyperlipidemia, and chronic atrial fibrillation. He has suspected though apparently not documented coronary artery disease. He has a history of smoking for 50 years, previously up to 2 packs of cigarettes daily. He currently smokes 1/2 pack/day. Mr Rios began treatment with combined therapy with Temodar and radiation therapy on 04/05/2020. Thus far he is tolerating it relatively well. He denies any nausea or vomiting. His energy is fair. He states he can do his chores without assistance. He denies any diarrhea or constipation. HHe denies any taste changes. He denies any headaches or vision changes currently. His random glucose from lab draw on 04/28/2020 was elevated at 233. He states he has been eating about the same foods everyday. He is on dexamethasone 2 mg daily. He is doing well oveall. His ECOG is 1. Past Medical History: Atrial fibrillation History of melanoma Hyperlipidemia Hypertension Past Surgical History: Recent biopsy of right forearm skin lesion Excision of melanoma from the right chest wall in 1992 Allergies: No Known Allergies. Medications: ALPRAZolam 1 Tablet (of 0.25 mg) Tablet Oral PRN Aspirin 1 Tablet (of 81 mg) Oral daily Cholecalciferol 1 Tablet (of 100 mcg ) Oral daily Decadron 0.5 Tablet (of 4 mg) Oral daily dilTIAZem CD 1 Capsule (of 240 mg) Capsule SR 24 HR Oral daily Spironolactone 1 Tablet (of 25 mg) Oral daily traMADol HCl 1 Tablet (of 50 mg) Oral PRN Vitamin A 1 Tablet (of 2400 mcg ) Oral daily Vitamin C 1 Tablet (of 100 mg) Oral daily Warfarin Sodium 1 Tablet (of 4 mg) Oral daily Family History: Mr. Rios's mother at age 72. Mr. Rios's father at age 70: skin cancer, and stomach cancer. Father in his 70s with stomach cancer. He also had skin cancer. Mother at age 72, cause unknown to the patient. One brother with melanoma. He has 4 other siblings who are in good health. Social History: Mr. Rios is and he is retired. He is a daily smoker who has smoked 0.5 packs/day for 50 years. He has no history of drinking. He has indicated exposure to the following products: cigarettes. Mr. Rios reports the following support systems: lives alone, supportive family/friends willing to assist with needs, and adequate transportation available for expected visits. His diet consists of regular meals. He indicates his activity level as: light exercise. Patient has decreased his smoking to 1/2 pack per day (03/22/20). Review Of Symptoms: Constitutional Denies fevers, chills, night sweats, excessive fatigue or weight loss. Allergic/Immunologic No reactions. Eyes Denies significant visual changes. No diplopia. No amaurosis. ENMT Denies changes in hearing, difficulty or changes in swallowing ability, and/or sinus drainage. Mouth is not sore and he is eating/drinking good. Endocrine No diabetes, thyroid disease or hormone replacement. Denies hot flashes or night sweats. Hematologic/Lymphatic Denies easy bruising or bleeding. The patient denies any tender or palpable lymph nodes. Respiratory Denies dyspnea on exertion, chest pain, cough or hemoptysis. Denies orthopnea. Cardiovascular Denies anginal chest pain, palpitations or orthopnea. Gastrointestinal Denies nausea, vomiting, diarrhea, GI bleeding, or constipation. Denies change in bowel habits and/or stool color, no heartburn or early satiety. Genitourinary (M) Denies hematuria, dysuria, increased frequency, urgency, hesitancy or incontinence. Musculoskeletal Denies joint pain, swelling or redness. No decreased range of motion. Integumentary Denies chronic rashes, inflammation, ulcerations or skin changes. Neurologic Denies headache, blurred vision, and no areas of focal weakness or numbness. Normal gait. No sensory problems. Psychiatric Denies insomnia, depression, chapis or mood swings. Vital Signs: Performed on May 06, 2020 09:07 Height - 66.00 in Weight - 210.8 lbs (LOW) BSA - 2.05 sq.m BMI - 34.02 (HIGH) Temperature - 97.3 F (LOW) Pulse - 93 /min Respiration - 16 /min BP - 81/69 mm(hg) (LOW) O2 Sat - 94 % (LOW) Pain - 0,1 - No physically strenuous activity, but ambulatory and able to carry out light or sedentary work (e.g. office work, light house work). (ECOG) Physical Examination: Constitutional Alert, oriented, no acute distress. Skin pink, warm and dry. Head Normocephalic; atraumatic. Eyes Conjunctivae and sclerae are clear and without icterus. Pupils are reactive and equal. Neck Supple without masses or thyromegaly. No jugular venous distension. Hematologic/Lymphatic No petechiae or purpura. No tender or palpable lymph nodes in the cervical or supraclavicular areas. Respiratory Lungs are clear to auscultation without rhonchi or wheezing. Cardiovascular Regular rate and rhythm of heart without murmurs,clicks, gallops or rubs. Back/Spine Non-tender to palpation. Extremities No visible deformities, no cyanosis, clubbing or edema. Musculoskeletal No tenderness or swelling, normal range of motion without obvious weakness. Integumentary No rashes. Scattered healing bruising noted on arms. No exudate. Neurologic No sensory or motor deficits, normal cerebellar function, normal gait. Psychiatric Alert and oriented times three. Coherent speech. Verbalizes understanding of our discussions today. Laboratory:Test performed on Apr 28, 2020 08:45 Sodium 132 mmol/L Potassium 4.4 mmol/L Chloride 96 mmol/L CO2 23 mmol/L Anion Gap 17.4 BUN 25 mg/dL Creatinine 0.9 mg/dL Cr Clearance (Est) 104.1700 mL/min eGFR 83.4 mL/min Glucose 257 mg/dL Calcium 8.8 mg/dL Protein, Total 5.6 g/dL Albumin 3.7 g/dL Globulin 1.9 g/dL Bilirubin, Total 0.5 mg/dL ALT (SGPT) 19 U/L AST (SGOT) 14 U/L Alkaline Phosphatase 57 IU/L WBC 20.1 10 3/uL Manual Bands % 15.0 % RBC 4.78 10 6/uL HGB 14.7 g/dL Manual Lymphs % 11 % Atypical Lymphs % 1.0 % HCT 43.8 % Manual Monos % 5.0 % MCV 91.6 fL MCH 30.8 pg MCHC 33.6 g/dL Metamyelocytes % 10.0 % RDW 13.3 % Platelet Count 199 10 3/cmm MPV 10.3 fL CBC Slide Review Slide Review Perform Manual Bands Abs 3.0 10 3/cmm Manual Neutrophils Abs 14.7 10 3/cmm Manual Lymphocytes Abs 2.4 10 3/cmm Manual Monocytes Abs 1.0 10 3/cmm Impression: 1. Patient with glioblastoma multiforme (high-grade glioma, WHO grade IV), involving the right parietal/occipital lobe of the brain, but with MRI evidence of extension into the corpus callosum and into the posterior right frontoparietal junction. 2. Results of molecular studies are currently pending. His other medical illnesses include: 3. Hypertension. 4. Hyperlipidemia. 5. Chronic atrial fibrillation-chronic anticoagulation with warfarin. 6. He has suspected but apparently not documented coronary artery disease. 7. He has a history of having undergone excision of a melanoma from the upper right chest wall in 1992. There has been no evidence of recurrence. The pathology findings were reviewed with the patient per Dr Bourgeois. As he does not appear to be a suitable candidate for surgical resection, he is recommended to undergo treatment with radiation concurrently with temozolomide chemotherapy. The temozolomide will be administered at a standard dosage of 75 mg/m??? daily during radiation followed by monthly cycles beginning at 150 mg/m??? days 1 through 5 each month for a total of 6 cycles. Mr Rios began his combined therapy on 04/05/2020. He is tolerating it very well thus far. Plan: 1. Proceed with Temodar 150 mg (2 tabs of 5 mg and 1 tab of 140 mg) at bedtime on the days of radiation only (M-F). 2. He has ondansetron on hand for antiemetics if needed- thus far he has not needed it. 3. Continue dexamethasone @ 2 mg. 4. May 05, 2020 labs were reviewed in detail and discussed with Mr. Rios and a copy was given to him. WBC 19.2, hemoglobin 14.2 platelets 164,000 neutrophils/ANC is 15,400. Creatinine 0.8 LFTs are normal. Random glucose was 233. I We will plan to check CBC, CMP and INRs weekly while he is on radiation and Temodar. 5. We will plan to see him back in 1 week with labs as above. He was instructed to contact us in the interim should questions or problems arise. 6. Hopefully next week we can wean him off the dexamethasone and hopefully his blood sugar will improve, his white count will trend toward normal range and he will have less dry mouth/skin. 7. We did review his sodium level of 130. Mr Rios saw Dr Quiles yesterday and Mr Rios reported that Dr Quiles told him to cut his fluid intake by 1/2. Dr Quiles is regulating Mr Rios's warfarin. INR's will be sent to him. Signed By: Edwar Avalos-, AOCNP Benji Bourgeois MD <<Signature on File>>
--- NOTE | 2020-05-11 09:52 | ONCRAD TMN_ITS ---
Radiation Oncology Weekly Treatment Management Patient: Asaf Rios MR#: [id number] : 1950> Age: 69> Sex: Male Dictated by: Dr. Ky Buenrostro Date of Service: 05/11/2020 Referring Physician(s) : Dr. Jose Quiles Primary Diagnosis: C71.8 - Malignant neoplasm of overlapping sites of brain, Diagnosed 03/22/2020 (Active) R93.0 - Abnormal findings on diagnostic imaging of skull and head, not elsewhere classified, Diagnosed 03/02/2020 (Active) Z85.820 - Personal history of malignant melanoma of skin, Diagnosed 03/02/2020 (Active) Radiotherapy to date: Course: GBM, Treatment Site: [id number], Ref. ID: [id number], Energy: 15X/6X, Dose/Fx (cGy): 200, #Fx: , Dose Correction (cGy): 0, Total Dose (cGy): 4,600, Start Date: 04/05/2020, End Date: 05/06/2020, Elapsed Days: 31 Treatment Site: [id number], Ref. ID: [id number], Energy: 15X/6X, Dose/Fx (cGy): 200, #Fx: 3 7, Dose Correction (cGy): 0, Total Dose (cGy): 600, Start Date: 05/07/2020, Elapsed Days: 4 Current Complaints/Interval History: Mr. Rios has received 5200 cGy in 26 fractions of a planned 6000 cGy in 30 fractions for GBM. He has complaints as noted below. His skin reaction is not particularly uncomfortable. He is applying hand lotion. He was given samples of Aquaphor and I discussed its use with him. His main complaint is irritation in the mouth. He has been on nystatin twice daily for sometime. He is still on 2 mg dexamethasone per day. He says he was instructed to take the nystatin until he is off the dexamethasone. Other issues include fatigue. He denies lack of appetite but has lost a few pounds. 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 Constitutional Complains of severe fatigue. Complains of change in weight in which is weight is down 3.6 lbs. since last OTV. Denies lack of appetite, fever and night sweats. Eyes Complains of blurred vision in both eyes. Denies double vision. ENMT Complains of mouth dryness, stomatitis and altered taste which happens occasionally. Integumentary Has desquamation to the top and back of the head. Gastrointestinal Denies nausea and vomiting. Neurologic Denies disorientation, dizziness, abnormal gait and headaches. Current Medications: ALPRAZolam, aspirin, cholecalciferol, decadron, , dilTIAZem CD, nystatin, ondansetron, spironolactone, traMADol HCl, vitamin A, vitamin C, warfarin Sodium. Allergies: No Known Allergies Vital Signs: Performed on 05/11/2020 8:51 AM BMI - 33.443 kg/m2 (high), Height - 66.00 in, Weight - 207.2 lbs, Temperature - 97.0 f, Pulse - 78, Respiration - 20, O2 Sat - 99 %, Pain - 2 and BP - 106/ 68 mm(hg). Physical Exam: Appears stable. Mr. Rios???s skin reaction is primarily on the vertex and posterior aspect of the scalp. He has severe hyperpigmentation and dry desquamation. He has a new layer of skin beneath and does not appear to be at risk for moist desquamation. In the oral cavity he has yeast over the anterior soft palate as well as most of the hard palate. He has no ulcerations or vesicles suggestive of a viral infection. He is ambulatory without assistance and he got on the examining table without any assistance at all. His balance is very good. Extremity movements are within normal limits. He is alert and oriented and was able to discuss his medications very clearly. Performance Status: 1 - No physically strenuous activity, but ambulatory and able to carry out light or sedentary work (e.g. office work, light house work). (ECOG) Lab: None pending in Radiation Oncology. Test performed on 03/29/2020 7:46 AM PT - 14.1 sec (high), INR - 1.4 (low), Test performed on 04/12/2020 12:25 PM Neutrophils - 13.7 10 3/ul (high), Monocytes - 1.3 10 3/ul (high), Test performed on 04/28/2020 8:45 AM WBC - 20.1 10 3/ul (high), Sodium - 132 mmol/l (low), Chloride - 96 mmol/l (low), BUN - 25 mg/dl (high), eGFR - 83.4 ml/min (low), Glucose - 257 mg/dl (high), Protein, Total - 5.6 g/dl (low), Manual Bands Abs - 3.0 10 3/cmm (high), Manual Neutrophils Abs - 14.7 10 3/cmm (high) and Manual Monocytes Abs - 1.0 10 3/cmm (high). Imaging: No new diagnostic imaging was performed since the last weekly treatment visit. All radiation therapy related imaging (including but not limited to kV, MV, and CBCT generated images) was reviewed. Appropriate changes, if any, were made to assure accurate target localization. Impression/Plan: Tolerating treatment well .. Continue treatment as planned. We discussed his skin reaction and use of Aquaphor. I discussed the oral candidiasis. He pointed out that being on warfarin it is not advisable for him to be on Diflucan. I requested that he go up to use of the nystatin 4 times daily and rinse his mouth with salt water prior to the use of the nystatin. I instructed him not to eat or drink anything for at least 1 hour after using the nystatin. He is being seen in Dr. Bourgeois's office on of this week. He thinks that he will either go down on the dose of dexamethasone or be completely taken off it. It would be helpful in terms of the yeast. In view of the fact that he has no troublesome SENIOR CONSULTANT symptoms, I think he probably can either go down on the dexamethasone or completely stop it. If he still has yeast when he finishes treatment next week, I will consider Mycelex troches. He had no questions about the treatment. CPT: 52162 Signed by: Dr. Ky Buenrostro>05/11/2020 9:49:28 AM <<Signature on File>>
[2020-05-13 09:12] LABS: Basophils % 0.3 %; Eosinophils # 0.1 10^3/uL (0.0-0.8); Eosinophils % 0.5 %; Hematocrit 41.7 % (42.0-52.0); Hemoglobin 14.1 g/dL (11.7-16.6); Lymphocytes % 7.5 %; Mean Corpuscular HGB Conc 33.8 g/dL (30.0-36.0); Mean Corpuscular Hemoglobin 30.7 pg (28.0-34.0); Mean Corpuscular Volume 90.8 fL (80-94); Mean Platelet Volume 10.8 fL (7.4-10.4); Neutrophils % 79.5 %; Nucleated Red Blood Cells % 0 %; Platelet Count 130 10^3/cmm (130-400); Red Blood Count 4.59 10^6/uL (4.1-5.3); Red Cell Distribution Width 14.2 % (12.1-15.1); White Blood Count 13.8 10^3/uL (4.0-10.0)
[2020-05-13 09:37] LABS: INR 1.48 (0.8-1.2)
[2020-05-13 09:41] LABS: Alanine Aminotransferase 19 U/L (0-41); Albumin Level 3.7 g/dL (3.5-5.2); Alkaline Phosphatase 55 IU/L (40-130); Aspartate Amino Transferase 14 U/L (0-40); Blood Urea Nitrogen 19 mg/dL (8-23); Calcium 8.5 mg/dL (8.5-10.5); Carbon Dioxide 22 mmol/L (22-29); Chloride 98 mmol/L (98-107); Globulin 2.2 g/dL (1.3-4.6); Glomerular Filtration Rate 95.6 mL/min (90-130); Glucose 218 mg/dL (65-115); Osmolality Calculated 279 mOsm/kg (285-295); Sodium 133 mmol/L (136-145); Total Bilirubin 0.5 mg/dL (0.15-1.2); Total Protein 5.9 g/dL (6.6-8.7)
--- NOTE | 2020-05-17 07:20 | ONC FU_ITS ---
Dr. Bourgeois Patient Follow-Up Note Patient: Asaf Rios Unit #: [id number]: 1950 Dicatated By: Benji Bourgeois M.D.Date of Visit:May 13, 2020 Onc Med Follow-up/Prog Note Chief Complaint: Glioblastoma. 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 He has had no documented recurrence. His other medical illnesses include hypertension, hyperlipidemia, and chronic atrial fibrillation. He has suspected but apparently not documented coronary artery disease. He has on chronic anticoagulation with warfarin and aspirin. He had presented with a one-month history of headache, loss of balance, and visual changes. His brain MRI without contrast on 02/25/2020 showed a large amount of vasogenic edema throughout the right cerebrum with sulcal effacement centered predominantly in the right parietal, temporal, and occipital lobes. There was abnormal signal centrally in the parietal region measuring 4.0 x 3.0 x 4.5 cm suspicious for infiltrating neoplasm. There was mass-effect on the right lateral ventricle. The appearance was most consistent with GBM, as there did appear to be extension into the corpus callosum. Metastatic disease and or lymphoma were not excluded. He was started on steroid therapy with prednisone 20 mg daily. I had seen him initially on 03/02/2020. With those findings arrangements were made for referral to Dr. Dwyer. He had further evaluation with contrast-enhanced brain MRI on 03/04/2020. It showed a large infiltrating necrotic mass centered in the right parieto-occipital region with extension into the corpus callosum and into the posterior right frontoparietal junction. The appearance was most consistent with glioblastoma multiforme.there was a large amount of vasogenic edema throughout the right cerebrum with a 3 mm midline shift to the left. Edema was noted to cross the midline via the splenium of the corpus callosum. On 03/11/[address]-guided stereotactic brain biopsy. Pathology, as expected, was consistent with glioblastoma multiforme (high-grade glioma, WHO grade IV). Additional studies were sent to [facility]. His other medical illnesses include hypertension, hyperlipidemia, and chronic atrial fibrillation. He has suspected though apparently not documented coronary artery disease. He has a history of smoking for 50 years, previously up to 2 packs of cigarettes daily. He currently smokes 1/2 pack/day. INTERIM HISTORY: He had radiation oncology consultation with Dr. James Otero on 03/22/2020. He then began radiation concurrently with temozolomide chemotherapy on 04/05/2020. He is due to complete his treatment on Sunday. Thus far he has been tolerating it very well. He has had no nausea or other obvious side effects with the temozolomide, though he does have very limited activity. He says his energy comes and goes. His ECOG score is 2. He has good appetite. He has no fever or night sweats. He complains that his mouth and throat are dry, but it is getting better. He has just occasional cough. He does not complain of shortness of breath or chest pain. He has no GI or complaints. He has no significant joint or bone pain. He does not complain of headache or dizziness, and he has no focal neurologic symptoms. Medications: ALPRAZolam 1 Tablet (of 0.25 mg) Tablet Oral PRN, Aspirin 1 Tablet (of 81 mg) Oral daily, Cholecalciferol 1 Tablet (of 100 mcg ) Oral daily, Decadron 0.5 Tablet (of 4 mg) Oral daily, dilTIAZem CD 1 Capsule (of 240 mg) Capsule SR 24 HR Oral daily, Spironolactone 1 Tablet (of 25 mg) Oral daily, traMADol HCl 1 Tablet (of 50 mg) Oral PRN, Vitamin A 1 Tablet (of 2400 mcg ) Oral daily, Vitamin C 1 Tablet (of 100 mg) Oral daily, Warfarin Sodium 1 Tablet (of 4 mg) Oral daily Allergies: No Known Allergies. Review of Systems: Constitutional - He is feeling pretty good. His energy comes and goes. He is able to do some light outside work. His appetite is good and weight is stable. No fever, night sweats, or hot flashes. ECOG score is 1, ENMT - No sinus congestion/drainage. His mouth is dry. He is using the Nystatin daily, this is helping. No mouth sores. He has some soreness in the throat but no difficulty swallowing, Hematologic/Lymphatic - He bruises easily, Respiratory - No shortness of breath. He has an occasional cough. No pleuritic pain or hemoptysis, Cardiovascular - No angina pain. No palpitations, Gastrointestinal - No nausea or vomiting. No heartburn or acid reflux. No diarrhea or constipation. No blood in the stool or black stools, Genitourinary (M) - No dysuria or hematuria. No urinary frequency. No urgency or incontinence, Musculoskeletal - No joint or bone pain, Integumentary - No skin complications, Neurologic - No headache or dizziness. No numbness or tingling. No other focal neurologic symptoms, Psychiatric - No anxiety or depression. No insomnia. Vital Signs: Performed on May 13, 2020 12:34 Height - 66.00 in Weight - 208.2 lbs (HIGH) BSA - 2.03 sq.m BMI - 33.60 (HIGH) Temperature - 97.1 F (LOW) Pulse - 118 /min (HIGH) Respiration - 24 /min BP - 114/72 mm(hg) O2 Sat - 98 % Pain - 0 Physical Examination: Constitutional - He appears somewhat weak generally, Eyes - Sclerae nonicteric. Conjunctivae clear, ENMT - There are no lesions noted in the oral cavity, Hematologic/Lymphatic - No cervical, clavicular, or axillary adenopathy, Respiratory - Lungs are clear with diminished air movement bilaterally, Cardiovascular - Heart rhythm is irregular. The rate is a little high. There is no murmur, gallop, or rub noted, Abdomen - Soft. Liver and spleen are not enlarged. There is no abdominal mass or ascites noted and there is no inguinal adenopathy, Extremities - Mild lower extremity edema. There is fairly extensive purpura on the arms, Neurologic - No focal neurologic deficits noted. Lab/Imaging: Test performed on May 13, 2020 08:52 Sodium 133 mmol/L Potassium 4.0 mmol/L Chloride 98 mmol/L CO2 22 mmol/L Anion Gap 17.0 BUN 19 mg/dL Creatinine 0.8 mg/dL Cr Clearance (Est) 114.77 mL/min eGFR 95.6 mL/min Glucose 218 mg/dL Calcium 8.5 mg/dL Protein, Total 5.9 g/dL Albumin 3.7 g/dL Globulin 2.2 g/dL Bilirubin, Total 0.5 mg/dL ALT (SGPT) 19 U/L AST (SGOT) 14 U/L Alkaline Phosphatase 55 IU/L PT 18.40 SECONDS WBC 13.8 10 3/uL INR 1.48 RBC 4.59 10 6/uL HGB 14.1 g/dL HCT 41.7 % MCV 90.8 fL MCH 30.7 pg MCHC 33.8 g/dL RDW 14.2 % Platelet Count 130 10 3/cmm MPV 10.8 fL Neutrophils 11.0 10 3/uL Lymphocytes 1.0 10 3/uL Monocytes 1.0 10 3/uL Eosinophils 0.1 10 3/uL Basophils 0.0 10 3/uL Neutrophil % 79.5 % Lymphocyte % 7.5 % Monocyte % 7.0 % Eosinophil % 0.5 % Basophils % 0.3 % NRBC % 0 % Impression: 1. Patient with glioblastoma multiforme (high-grade glioma, WHO grade IV), involving the right parietal/occipital lobe of the brain, but with MRI evidence of extension into the corpus callosum and into the posterior right frontoparietal junction. 2. Molecular studies were requested but those results have not been reported. His other medical illnesses include: 3. Hypertension. 4. Hyperlipidemia. 5. Chronic atrial fibrillation. 6. He has suspected but apparently not documented coronary artery disease. 7. He has a history of having undergone excision of a melanoma from the upper right chest wall in 1992. There has been no evidence of recurrence. He began radiation concurrently with daily temozolomide chemotherapy on 04/05/2020. Thus far he has tolerated the treatment very well. He has not yet been evaluated for response. Plan: He will continue temozolomide 70 mg/m??? daily through the end of this week. As noted, he is scheduled to complete his radiation on Sunday. I will then plan a follow-up visit in 4 weeks, at which time he will be due to start his monthly temozolomide cycles. In the meantime, he will now reduce his dexamethasone dosage to 2 mg daily. Signed By: Benji Bourgeois M.D. <<Signature on File>>
== END 2020-05-25 23:59 | disposition home or self-care (01) ==
LOC: ONCMED 06:47
PROVIDERS: Internal Medicine Medical Oncology; Nurse Practitioner; Absent Provider Specialist; PCP Family Medicine; Visit Provider Specialist
DX: Z51.0 Encounter for antineoplastic radiation therapy (principal); C71.8 Malignant neoplasm of overlapping sites of brain; I48.91 Unspecified atrial fibrillation; E78.5 Hyperlipidemia, unspecified; I10 Essential (primary) hypertension; I25.10 Atherosclerotic heart disease of native coronary artery without angina pectoris; Z85.820 Personal history of malignant melanoma of skin; Z92.21 Personal history of antineoplastic chemotherapy; Z79.899 Other long term (current) drug therapy
CPT/HCPCS: 36415; 77336; 77386; 77387; 77412; 80053; 85007; 85025; 85610; 99214

== ENCOUNTER 2020-06-14 06:51 | Outpatient (RCR) | payer MEDICARE, SELFPAY ==
[2020-06-09 12:23] LABS: Basophils # 0.1 10^3/uL (0.0-0.1); Basophils % 0.4 %; Eosinophils % 0.1 %; Hematocrit 42.3 % (42.0-52.0); Hemoglobin 13.8 g/dL (11.7-16.6); Lymphocytes # 1.7 10^3/uL (0.8-4.8); Lymphocytes % 12.4 %; Mean Corpuscular HGB Conc 32.6 g/dL (30.0-36.0); Mean Corpuscular Hemoglobin 30.9 pg (28.0-34.0); Mean Corpuscular Volume 94.8 fL (80-94); Mean Platelet Volume 10.9 fL (7.4-10.4); Monocytes # 0.8 10^3/uL (0.2-0.9); Monocytes % 5.9 %; Neutrophils # 10.01 10^3/uL (1.8-7.7); Neutrophils % 74.4 %; Nucleated Red Blood Cells % 0 %; Platelet Count 162 10^3/cmm (130-400); Red Blood Count 4.46 10^6/uL (4.1-5.3); Red Cell Distribution Width 15.3 % (12.1-15.1); White Blood Count 13.5 10^3/uL (4.0-10.0)
[2020-06-09 12:29] LABS: INR 1.96 (0.8-1.2)
[2020-06-09 12:37] LABS: Alanine Aminotransferase 19 U/L (0-41); Alkaline Phosphatase 51 IU/L (40-130); Anion Gap 16.4 (5-19); Aspartate Amino Transferase 14 U/L (0-40); Blood Urea Nitrogen 19 mg/dL (8-23); Calcium 8.5 mg/dL (8.5-10.5); Carbon Dioxide 22 mmol/L (22-29); Chloride 99 mmol/L (98-107); Globulin 2.3 g/dL (1.3-4.6); Glomerular Filtration Rate 95.6 mL/min (90-130); Glucose 185 mg/dL (65-115); Osmolality Calculated 277 mOsm/kg (285-295); Potassium 4.4 mmol/L (3.5-5.1); Sodium 133 mmol/L (136-145); Total Bilirubin 0.3 mg/dL (0.15-1.2); Total Protein 6.3 g/dL (6.6-8.7)
[2020-06-09 13:31] LABS: Slide Review Slide Review Perform
--- NOTE | 2020-06-13 14:29 | ONC FU_ITS ---
Dr. Bourgeois Patient Follow-Up Note Patient: Asaf Rios Unit #: [id number]: 1950 Dicatated By: Benji Bourgeois M.D.Date of Visit:Jun 09, 2020 Onc Med Follow-up/Prog Note Chief Complaint: Glioblastoma. 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 He has had no documented recurrence. His other medical illnesses include hypertension, hyperlipidemia, and chronic atrial fibrillation. He has suspected but apparently not documented coronary artery disease. He has on chronic anticoagulation with warfarin and aspirin. He had presented with a one-month history of headache, loss of balance, and visual changes. His brain MRI without contrast on 02/25/2020 showed a large amount of vasogenic edema throughout the right cerebrum with sulcal effacement centered predominantly in the right parietal, temporal, and occipital lobes. There was abnormal signal centrally in the parietal region measuring 4.0 x 3.0 x 4.5 cm suspicious for infiltrating neoplasm. There was mass-effect on the right lateral ventricle. The appearance was most consistent with GBM, as there did appear to be extension into the corpus callosum. Metastatic disease and or lymphoma were not excluded. He was started on steroid therapy with prednisone 20 mg daily. I had seen him initially on 03/02/2020. With those findings arrangements were made for referral to Dr. Dwyer. He had further evaluation with contrast-enhanced brain MRI on 03/04/2020. It showed a large infiltrating necrotic mass centered in the right parieto-occipital region with extension into the corpus callosum and into the posterior right frontoparietal junction. The appearance was most consistent with glioblastoma multiforme.there was a large amount of vasogenic edema throughout the right cerebrum with a 3 mm midline shift to the left. Edema was noted to cross the midline via the splenium of the corpus callosum. On 03/11/[address]-guided stereotactic brain biopsy. Pathology, as expected, was consistent with glioblastoma multiforme (high-grade glioma, WHO grade IV). Additional studies were sent to [facility]. He had radiation oncology consultation with Dr. James Otero on 03/22/2020. He then began radiation concurrently with temozolomide chemotherapy on 04/05/2020. He is completed radiation on 05/17/2020 to a total dose of 6,000 cGy. Overall, he tolerated the treatment very well. His other medical illnesses include hypertension, hyperlipidemia, and chronic atrial fibrillation. He has suspected though apparently not documented coronary artery disease. He has a history of smoking for 50 years, previously up to 2 packs of cigarettes daily. He had cut down to 1/2 pack/day. He is seen for a follow-up visit. He has been feeling pretty good generally. He says his energy is a little bit better. He is doing some walking and he is able to do some light work. He has currently taking 1 mg of dexamethasone daily. His ECOG score is 1. He has good appetite. He has no fever or night sweats. He has very little cough. He does not complain of shortness of breath or chest pain. He has no GI/ complaints other than his bowels are sometimes a little bit loose. He has no significant joint or bone pain. He does not complain of headache or dizziness, and he has no focal neurologic symptoms. Medications: ALPRAZolam 1 Tablet (of 0.25 mg) Tablet Oral PRN, Aspirin 1 Tablet (of 81 mg) Oral daily, Cholecalciferol 1 Tablet (of 100 mcg ) Oral daily, Decadron 1 Tablet (of 1 mg) Oral daily, dilTIAZem CD 1 Capsule (of 240 mg) Capsule SR 24 HR Oral daily, Spironolactone 1 Tablet (of 25 mg) Oral daily, traMADol HCl 1 Tablet (of 50 mg) Oral PRN, Vitamin A 1 Tablet (of 2400 mcg ) Oral daily, Vitamin C 1 Tablet (of 100 mg) Oral daily, Warfarin Sodium 1 Tablet (of 5 mg) Oral daily Allergies: No Known Allergies. Review of Systems: Constitutional - He is doing pretty well. His energy is good. He does a lot of walking and he does some light work outside. His appetite is good and weight is up a few pounds. No fevers, night sweats, or hot flashes. ECOG score is 1, ENMT - No sinus congestion/drainage. No mouth sores. No sore throat or difficulty swallowing, Hematologic/Lymphatic - He bruises easily, Respiratory - No shortness of breath. No cough. No pleuritic pain or hemoptysis, Cardiovascular - No angina pain. No palpitations, Gastrointestinal - No nausea or vomiting. No heartburn or acid reflux. He's having loose stools. No constipation. No blood in the stool or black stools, Genitourinary (M) - No dysuria or hematuria. No urinary frequency. No urgency or incontinence, Musculoskeletal - No joint or bone pain, Integumentary - No skin complications, Neurologic - No headache or dizziness. No numbness or tingling. No other focal neurologic symptoms, Psychiatric - No anxiety or depression. No insomnia. Vital Signs: Performed on Jun 09, 2020 13:02 Height - 66.00 in Weight - 210.2 lbs (HIGH) BSA - 2.04 sq.m BMI - 33.93 (HIGH) Temperature - 97.1 F (LOW) Pulse - 81 /min Respiration - 24 /min BP - 124/85 mm(hg) O2 Sat - 100 % Pain - 0 Physical Examination: Constitutional - He looks pretty good generally, Eyes - Sclerae nonicteric. Conjunctivae clear, ENMT - No lesions noted in the oral cavity, Hematologic/Lymphatic - No cervical, clavicular, or axillary adenopathy, Respiratory - Lungs are clear with diminished air movement bilaterally, Cardiovascular - Heart rhythm is irregular. There is no murmur, gallop, or rub noted, Abdomen - Soft. Liver and spleen are not enlarged. There is no abdominal mass or ascites noted and there is no inguinal adenopathy, Extremities - No edema. There is extensive purpura on both arms, Neurologic - No focal neurologic deficits noted. Lab/Imaging: Test performed on Jun 09, 2020 11:28 Sodium 133 mmol/L Potassium 4.4 mmol/L Chloride 99 mmol/L CO2 22 mmol/L Anion Gap 16.4 BUN 19 mg/dL Creatinine 0.8 mg/dL Cr Clearance (Est) 115.87 mL/min eGFR 95.6 mL/min Glucose 185 mg/dL Calcium 8.5 mg/dL Protein, Total 6.3 g/dL Albumin 4.0 g/dL Globulin 2.3 g/dL Bilirubin, Total 0.3 mg/dL ALT (SGPT) 19 U/L AST (SGOT) 14 U/L Alkaline Phosphatase 51 IU/L PT 23.00 SECONDS WBC 13.5 10 3/uL INR 1.96 RBC 4.46 10 6/uL HGB 13.8 g/dL HCT 42.3 % MCV 94.8 fL MCH 30.9 pg MCHC 32.6 g/dL RDW 15.3 % Platelet Count 162 10 3/cmm MPV 10.9 fL Neutrophils 10.01 10 3/uL Lymphocytes 1.7 10 3/uL Monocytes 0.8 10 3/uL Eosinophils 0.0 10 3/uL Basophils 0.1 10 3/uL Neutrophil % 74.4 % Lymphocyte % 12.4 % Monocyte % 5.9 % Eosinophil % 0.1 % Basophils % 0.4 % NRBC % 0 % CBC Slide Review Slide Review Perform SLIDE REVIEW AGREES WITH AUTOMATED RESULTS Impression: 1. Patient with glioblastoma multiforme (high-grade glioma, WHO grade IV), involving the right parietal/occipital lobe of the brain, but with MRI evidence of extension into the corpus callosum and into the posterior right frontoparietal junction. 2. Molecular studies were requested but those results have not been reported. His other medical illnesses include: 3. Hypertension. 4. Hyperlipidemia. 5. Chronic atrial fibrillation. 6. He has suspected but apparently not documented coronary artery disease. 7. He has a history of having undergone excision of a melanoma from the upper right chest wall in 1992. There has been no evidence of recurrence. He began radiation concurrently with daily temozolomide chemotherapy on 04/05/2020. He completed radiation on 05/17/2020 to a total dose of 6000 cGy. Overall, he tolerated the treatment very well, and he has had some improvement in his clinical status. At this point he remains on steroid therapy with dexamethasone 1 mg daily. Plan: As of 06/14/2020 he is to start his first of 6 monthly cycles of temozolomide at a dosage of 150 mg/m??? daily for 5 days. He will take ondansetron as needed for nausea. He will now decrease dexamethasone to 0.5 mg daily. He will be scheduled for a follow-up visit in 1 month. He will have a repeat brain MRI prior to that visit. Signed By: Benji Bourgeois M.D. <<Signature on File>>
--- NOTE | 2020-06-14 09:37 | ONCRAD EPV_ITS ---
Radiation Oncology Established Patient Visit Patient: Chana MR#: [id number] : 1950> Age: 69> Sex: Male> Dictated by: Dr. Imer Segovia Date of Service: 06/14/2020 Referring Physician(s) : Dr. Jose Quiles Diagnosis: C71.8 - Malignant neoplasm of overlapping sites of brain, Diagnosed 03/22/2020 (Active) R93.0 - Abnormal findings on diagnostic imaging of skull and head, not elsewhere classified, Diagnosed 03/02/2020 (Active) Z85.820 - Personal history of malignant melanoma of skin, Diagnosed 03/02/2020 (Active) Radiotherapy to Date: Course: GBM, Treatment Site: [id number], Ref. ID: [id number], Energy: 15X/6X, Dose/Fx (cGy): 200, #Fx: , Dose Correction (cGy): 0, Total Dose (cGy): 4,600, Start Date: 04/05/2020, End Date: 05/06/2020, Elapsed Days: 31 Treatment Site: [id number], Ref. ID: [id number], Energy: 15X/6X, Dose/Fx (cGy): 200, #Fx: , Dose Correction (cGy): 0, Total Dose (cGy): 1,400, Start Date: 05/07/2020, End Date: 05/17/2020, Elapsed Days: 10 Chief Complaint / History of Present Illness: The patient is a 69-year-old male with the diagnosis of GBM predominantly involving in the right parietal lobe, MGMT unmethylated, IDH 1/IDH 2 negative for mutation, and TERT positive. He was treated with concurrent chemoradiation therapy in aggregate dose of 60 Gy in 30 fractions (completed 05/17/2020). The patient is here for his 1 month posttreatment follow-up, and he reports no new headaches, no worsening balance, no worsening vision, no seizures, no numbness/weakness. Current Medications: ALPRAZolam, aspirin, cholecalciferol, decadron, decadron, dexamethasone, dilTIAZem CD, nystatin, ondansetron, spironolactone, traMADol HCl, vitamin A, vitamin C, warfarin Sodium. Allergies: No Known Allergies Current Complaints / Review of Systems: Constitutional - Complains of moderate fatigue. Denies lack of appetite, fever and night sweats. Eyes - Denies blurred vision and double vision. Has decreased depth preception in the left eye. ENMT - Complains of ear pain on the left side occasionally. Complains of mouth dryness. Denies dysphagia, stomatitis, altered taste and tinnitus. Neck - Denies neck pain. Integumentary - Complains of bruising. Denies rash. Cardiovascular - Complains of edema in both legs and feet. Denies arrhythmias and chest pain. Respiratory - Denies cough, dyspnea and wheezing. Gastrointestinal - Complains of persistent diarrhea which is characterized as loose. Denies abdominal pain, constipation, heartburn / dyspepsia, melena / GI bleeding, nausea and vomiting. Genitourinary (M) - Complains of nocturia gets up about 2 times per night. Denies dysuria, frequency and urgency. Musculoskeletal - Complains of muscle weakness in the lower extremity. Denies bone pain and joint pain. Neurologic - Complains of disorientation to time. Complains of abnormal gait. Denies dizziness and headaches. Endocrine - Denies diabetes and thyroid disease. Hematologic/Lymphatic - Denies tender or enlarged lymph nodes.. Vital Signs: Performed on 06/14/2020 9:04 AM BMI - 34.282 kg/m2 (high), Height - 66.00 in, Weight - 212.4 lbs, Temperature - 97.2 f, Pulse - 103, Respiration - 20, O2 Sat - 97 %, Pain - 0 and BP - 107/ 72 mm(hg). Physical Exam: General: Alert and oriented x 3. No acute distress. HEENT: Normocephalic, atraumatic. Extraocular Movements Intact: Pupils Equal, Round, Reactive to Light and Accommodation: Sclerae anicteric. Oral cavity is clear without lesions, masses or ulcers, or clinical findings consistent with oral thrush. NECK: Supple without supraclavicular or jugular lymphadenopathy. LUNGS: Clear to auscultation bilaterally without rales, rhonchi or wheeze. HEART: Regular rate and rhythm, normal S1 and S2 without murmur, gallop or rub. MUSCULOSKELETAL: No tenderness or percussion pain over the axial skeleton, scapulae or pelvis. ABDOMEN: Soft, nontender, nondistended without masses or organomegaly. Bowell sounds are present. EXTREMITIES: No peripheral edema is identified. NEUROLOGIC: Cranial nerves II ???XII are grossly intact, with the exception of reduced peripheral vision in the left and right eye. There is no pronator drift, [id number] exercises are normal, Romberg testing is negative, and his gait is normal. Performance Status: 1 - No physically strenuous activity, but ambulatory and able to carry out light or sedentary work (e.g. office work, light house work). (ECOG) Lab: None pending. Test performed on 04/28/2020 8:45 AM Manual Bands Abs - 3.0 10 3/cmm (high), Manual Neutrophils Abs - 14.7 10 3/cmm (high), Manual Monocytes Abs - 1.0 10 3/cmm (high), Test performed on 06/09/2020 11:28 AM WBC - 13.5 10 3/ul (high), MCV - 94.8 fl (high), RDW - 15.3 % (high), MPV - 10.9 fl (high), Neutrophils - 10.01 10 3/ul (high), Sodium - 133 mmol/l (low), Glucose - 185 mg/dl (high), Protein, Total - 6.3 g/dl (low), PT - 23.00 seconds (high) and INR - 1.96 (high). Pathology: Primary, c71.8 - malignant neoplasm of overlapping sites of brain, Diagnosed 03/22/2020 (active), Primary, r93.0 - abnormal findings on diagnostic imaging of skull and head, not elsewhere classified, Diagnosed 03/02/2020 (active) and Primary, z85.820 - personal history of malignant melanoma of skin, Diagnosed 03/02/2020 (active). Imaging: See HPI Impression: The patient is a 69-year-old male with the diagnosis of GBM predominantly involving in the right parietal lobe, MGMT unmethylated, IDH 1/IDH 2 negative for mutation, and TERT positive. He was treated with concurrent chemoradiation therapy in aggregate dose of 60 Gy in 30 fractions (completed 05/17/2020). He is scheduled to resume temozolomide with Dr. Bourgeois who is also tapering his dexamethasone, currently at 1/2 mg/day. Dr. Bourgeois has ordered an MRI of the brain for June 2020. Clinically, the patient is doing well, he reports no progressive headaches, yet he does complain of diminished depth perception most prominent in his left eye. I plan to follow-up with the patient in September with a repeat MRI of the brain at that time. Signed by: 06/14/2020 9:36:20 AM <<Signature on File>> Time spent with patient: CPT Code: CPT Code:
--- NOTE | 2020-06-24 09:10 | ONC FU_ITS ---
[facility] Patient Note Patient: Asaf Rios Unit #: [id number]: 1950 Dictated By: Edwar AvalosDate of Visit: Jun 24, 2020 Onc MED Telephone/Prog Note I spoke with Mr. Rios this morning in regards to his MRI of the brain from 06/23/2020. He had called in earlier in the week concerning side effects of the Temodar which he complained that he has been having bilateral leg weakness to the point where was difficult to walk. His family also reported that had been having some confusion. I did ask at that time due to the significant changes in his symptoms that would go ahead and repeat an MRI of the brain knowing that he had just completed radiation therapy on 05/15/2020. I did get a report from Dr. Lyn on 06/23/2020. I had spoken with him last night regarding a preliminary report suggesting that there was progression of the enhancement and new areas of enhancement across the splenium. I had discussed with him last night this could be radiation changes rather than tumor progression but we clarified with Dr. Segovia???ration oncologist???this morning. Dr. Segovia did review the MRIs in comparison to the old and did also feel like this was pseudo-progression and just edema from treatment itself. I placed Mr. Rios on dexamethasone 4 mg twice daily last night. He previously been on 1 mg twice daily. I asked him today to continue the 4 mg twice daily on the dexamethasone for at least a week and then will start weaning him down. He was advised that the swelling may be causing the leg weakness. We will plan to see him back in a week to 10days for follow-up. He does have a follow-up with Dr. Bourgeois on July 19, 2020. He has no new concerns today. He verbalized understanding and states that he will take the dexamethasone 4 mg twice daily until he sees us. He is to call us if he has any further questions or problems. Signed By: Won Avalos AOCNP <<Signature on File>>
== END 2020-06-25 23:59 | disposition home or self-care (01) ==
LOC: ONCMED 06:51
PROVIDERS: Internal Medicine Medical Oncology; PCP Family Medicine; Visit Provider Radiology Radiation Oncology
DX: C71.8 Malignant neoplasm of overlapping sites of brain (principal); I48.20 Chronic atrial fibrillation, unspecified; E78.5 Hyperlipidemia, unspecified; I10 Essential (primary) hypertension; Z85.820 Personal history of malignant melanoma of skin; Z79.899 Other long term (current) drug therapy; Z79.01 Long term (current) use of anticoagulants; Z79.82 Long term (current) use of aspirin; Z79.52 Long term (current) use of systemic steroids; Z92.3 Personal history of irradiation; F17.210 Nicotine dependence, cigarettes, uncomplicated; Z79.891 Long term (current) use of opiate analgesic
CPT/HCPCS: 36415; 80053; 85025; 85610; 99214

== ENCOUNTER 2020-06-23 13:43 | Outpatient (CLI) | payer MEDICARE, SELFPAY ==
--- NOTE | 2020-06-23 14:02 | MR_ITS ---
WS: [id number] MRI BRAIN WITH AND WITHOUT CONTRAST HISTORY: BRAIN TUMOR WITH BILATERAL LOWER EXT WEAKNESS, history of radiation therapy to the brain. COMPARISON: CT 03/11/2020 and prior MRI brain 03/04/2020 TECHNIQUE: Multiplanar imaging performed through the brain with Prohance 17 ml's IV. Significant progression of the enhancing necrotic neoplasm centered in the RIGHT parieto-occipital re gion there is enhancement with central necrosis. Large amount of tumor has progressed. There are a fe w areas of hemosiderin deposition from prior hemorrhage. There is edema and increased nodular enhance ment involving the splenium of the corpus callosum. There is elevation of the occipital horn of the R IGHT lateral ventricle. Progression of the enhancement surrounding the occipital horn has likely exte nded into the ventricle and there is an mandible enhancement and nodularity. Significant amount of ed rc in the RIGHT cerebrum. There is mild bowing of midline structures to the LEFT of midline by 4 mm which is not significantly changed. Paranasal sinuses: Well aerated with no significant disease. Mastoid air cells: Normal. Calvarium and scalp: Normal. MR/MR head wo/w con [id number] IMPRESSION: 1. Significant progression of enhancement and the necrotic brain tumor centere d in the RIGHT parieto-occipital region. New areas of enhancement across the sp lenium of the corpus callosum and suspect invasion into the occipital horn of t he RIGHT lateral ventricle as there is ependymal nodularity and enhancement. 2. 4 mm midline shift to the LEFT is similar to the prior study. 3. Increasing cerebral edema and tumor burden. 4. No hydrocephalus.
== END 2020-06-23 13:44 | disposition home or self-care (01) ==
LOC: RADWPI 13:49
PROVIDERS: Family Provider Family Medicine; PCP Family Medicine; Visit Provider Nurse Practitioner
DX: C71.9 Malignant neoplasm of brain, unspecified (principal); R53.1 Weakness; G93.6 Cerebral edema
CPT/HCPCS: 70553; A9579

== ENCOUNTER 2020-07-19 06:00 | Outpatient (RCR) | payer MEDICARE, SELFPAY ==
[2020-07-19 09:39] LABS: Basophils # 0.1 10^3/uL (0.0-0.1); Basophils % 0.6 %; Eosinophils # 0.1 10^3/uL (0.0-0.8); Eosinophils % 0.6 %; Hematocrit 41.5 % (42.0-52.0); Hemoglobin 13.7 g/dL (11.7-16.6); Lymphocytes # 1.6 10^3/uL (0.8-4.8); Lymphocytes % 14.6 %; Mean Corpuscular Hemoglobin 32.4 pg (28.0-34.0); Mean Corpuscular Volume 98.1 fL (80-94); Mean Platelet Volume 10.6 fL (7.4-10.4); Monocytes # 0.5 10^3/uL (0.2-0.9); Monocytes % 4.5 %; Neutrophils # 7.86 10^3/uL (1.8-7.7); Nucleated Red Blood Cells % 0 %; Platelet Count 133 10^3/cmm (130-400); Red Blood Count 4.23 10^6/uL (4.1-5.3); Red Cell Distribution Width 13.7 % (12.1-15.1); White Blood Count 10.6 10^3/uL (4.0-10.0)
[2020-07-19 10:00] LABS: Alanine Aminotransferase 19 U/L (0-41); Albumin Level 3.2 g/dL (3.5-5.2); Alkaline Phosphatase 67 IU/L (40-130); Aspartate Amino Transferase 14 U/L (0-40); Blood Urea Nitrogen 21 mg/dL (8-23); Calcium 7.6 mg/dL (8.5-10.5); Carbon Dioxide 20 mmol/L (22-29); Chloride 98 mmol/L (98-107); Globulin 2.3 g/dL (1.3-4.6); Glomerular Filtration Rate 111.5 mL/min (90-130); Glucose 380 mg/dL (65-115); Osmolality Calculated 278 mOsm/kg (285-295); Sodium 128 mmol/L (136-145); Total Bilirubin 0.5 mg/dL (0.15-1.2); Total Protein 5.5 g/dL (6.6-8.7)
[2020-07-19 10:14] LABS: Anion Gap 14.9 (5-19); Potassium 4.9 mmol/L (3.5-5.1)
[2020-07-19 10:39] LABS: Slide Review Slide Review Perform
[2020-07-19 10:40] LABS: Neutrophils % 79.7 %
[2020-07-19 12:02] LABS: Estmated Average Glucose 252; Hemoglobin A1C 10.4 % (4.0-6.0)
--- NOTE | 2020-07-19 18:24 | ONC FU_ITS ---
Dr. Bourgeois Patient Follow-Up Note Patient: Asaf Rios Unit #: [id number]: 1950 Dicatated By: Benji Bourgeois M.D.Date of Visit:Jul 19, 2020 Onc Med Follow-up/Prog Note Chief Complaint: Glioblastoma. 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 He has had no documented recurrence. His other medical illnesses include hypertension, hyperlipidemia, and chronic atrial fibrillation. He has suspected but apparently not documented coronary artery disease. He has on chronic anticoagulation with warfarin and aspirin. He had presented with a one-month history of headache, loss of balance, and visual changes. His brain MRI without contrast on 02/25/2020 showed a large amount of vasogenic edema throughout the right cerebrum with sulcal effacement centered predominantly in the right parietal, temporal, and occipital lobes. There was abnormal signal centrally in the parietal region measuring 4.0 x 3.0 x 4.5 cm suspicious for infiltrating neoplasm. There was mass-effect on the right lateral ventricle. The appearance was most consistent with GBM, as there did appear to be extension into the corpus callosum. Metastatic disease and or lymphoma were not excluded. He was started on steroid therapy with prednisone 20 mg daily. I had seen him initially on 03/02/2020. With those findings arrangements were made for referral to Dr. Dwyer. He had further evaluation with contrast-enhanced brain MRI on 03/04/2020. It showed a large infiltrating necrotic mass centered in the right parieto-occipital region with extension into the corpus callosum and into the posterior right frontoparietal junction. The appearance was most consistent with glioblastoma multiforme.there was a large amount of vasogenic edema throughout the right cerebrum with a 3 mm midline shift to the left. Edema was noted to cross the midline via the splenium of the corpus callosum. On 03/11/[address]-guided stereotactic brain biopsy. Pathology, as expected, was consistent with glioblastoma multiforme (high-grade glioma, WHO grade IV). Additional studies were sent to [facility]. He had radiation oncology consultation with Dr. James Otero on 03/22/2020. He then began radiation concurrently with temozolomide chemotherapy on 04/05/2020. He is completed radiation on 05/17/2020 to a total dose of 6,000 cGy. Overall, he tolerated the treatment very well. His other medical illnesses include hypertension, hyperlipidemia, and chronic atrial fibrillation. He has suspected though apparently not documented coronary artery disease. He has a history of smoking for 50 years, previously up to 2 packs of cigarettes daily. He had cut down to 1/2 pack/day. At his followup visit on 06/09/2020 his overall clinical status appeared to be improving , and on 06/14/2020 he began his first of 6 planned monthly cycles of temozolomide. He then had a repeat head MRI on 06/23/2020. It showed significant progression of enhancement in the necrotic brain tumor centered in the right parieto-occipital region. New areas of enhancement were noted to cross the splenium of the corpus callosum with suspected invasion into the occipital horn of the right lateral ventricle. A 4 mm midline shift to the left was similar to the prior study. Overall there was increasing cerebral edema and tumor burden. With those findings, his dexamethasone was increased to 4 mg twice daily. He is seen for a follow-up visit. His dexamethasone has since then been tapered to 2 mg daily. He complains of having weakness in his hips and legs, but he did opt to proceed with his second cycle of temozolomide on 07/15/2020. He has had no apparent side effects with the temozolomide. His activity, though, has gone down. His ECOG score is 2. He still has good appetite. He has no fever or night sweats. He has had no mouth sores. He says his breathing is okay. He has had some chest congestion, but not much cough. He does not complain of chest pain. He has not been having nausea. He has had some acid reflux at night and he says his bowels are kind of tight. He has no complaints. He has no significant joint or bone pain. He does not complain of headache. He occasionally is off balance. He has no numbness/paresthesia or other focal neurologic symptoms. Medications: ALPRAZolam 1 Tablet (of 0.25 mg) Tablet Oral PRN, Aspirin 1 Tablet (of 81 mg) Oral daily, Cholecalciferol 1 Tablet (of 100 mcg ) Oral daily, Decadron 1 Tablet (of 2 mg) Oral daily, dilTIAZem CD 1 Capsule (of 240 mg) Capsule SR 24 HR Oral daily, Spironolactone 1 Tablet (of 25 mg) Oral daily, traMADol HCl 1 Tablet (of 50 mg) Oral PRN, Vitamin A 1 Tablet (of 2400 mcg ) Oral daily, Vitamin C 1 Tablet (of 100 mg) Oral daily, Warfarin Sodium 1 Tablet (of 4 mg) Oral daily Allergies: No Known Allergies. Review of Systems: Constitutional - He is having alot of weakness in his legs and hips. He is able to do some light walking with a wheeled walker. His appetite is OK. His weight is down 7 pounds from last visit. No fever, night sweats, or hot flashes. ECOG score is 2, ENMT - No sinus congestion/drainage. No mouth sores. No sore throat or difficulty swallowing, Hematologic/Lymphatic - He has significant scattered bruising, Respiratory - No shortness of breath. He has some chest congestion, but not much cough. No pleuritic pain or hemoptysis, Cardiovascular - No angina pain. No palpitations, Gastrointestinal - No nausea or vomiting. He has been having some acid reflux at night. No diarrhea. He has some mild constipation. No blood in the stool or black stools, Genitourinary (M) - No dysuria or hematuria. No urinary frequency. No urgency or incontinence, Musculoskeletal - No joint or bone pain, Integumentary - He has edema in his legs and right arm, Neurologic - No headache. He has been having difficulty with balance. No numbness or tingling. No other focal neurologic symptoms, Psychiatric - No anxiety or depression. No insomnia. Vital Signs: Performed on Jul 19, 2020 10:44 Height - 66.00 in Weight - 205.2 lbs (LOW) BSA - 2.02 sq.m BMI - 33.12 (HIGH) Temperature - 97.2 F (LOW) Pulse - 95 /min Respiration - 24 /min BP - 111/71 mm(hg) O2 Sat - 99 % Pain - 0 Physical Examination: Constitutional - He appears generally weak, Eyes - Sclerae nonicteric. Conjunctivae clear, ENMT - No lesions noted in the oral cavity, Hematologic/Lymphatic - No cervical, clavicular, or axillary adenopathy, Respiratory - Lungs are clear with diminished air movement bilaterally, Cardiovascular - Heart rhythm is irregular. There is no murmur, gallop, or rub noted, Abdomen - Soft. Liver and spleen are not enlarged. There is no abdominal mass or ascites noted and there is no inguinal adenopathy, Extremities - He has 2+ lower extremity edema. There is extensive purpura on both arms, Neurologic - He does not appear to have any focal neurologic deficit. Lab/Imaging: Test performed on Jul 19, 2020 09:22 Sodium 128 mmol/L Potassium 4.9 mmol/L Chloride 98 mmol/L CO2 20 mmol/L Anion Gap 14.9 BUN 21 mg/dL Creatinine 0.7 mg/dL Cr Clearance (Est) 129.28 mL/min eGFR 111.5 mL/min Glucose 380 mg/dL Calcium 7.6 mg/dL Protein, Total 5.5 g/dL Albumin 3.2 g/dL Globulin 2.3 g/dL Bilirubin, Total 0.5 mg/dL ALT (SGPT) 19 U/L AST (SGOT) 14 U/L Alkaline Phosphatase 67 IU/L Hemoglobin A1C % 10.4 % WBC 10.6 10 3/uL RBC 4.23 10 6/uL HGB 13.7 g/dL HCT 41.5 % MCV 98.1 fL MCH 32.4 pg MCHC 33.0 g/dL RDW 13.7 % Platelet Count 133 10 3/cmm MPV 10.6 fL Neutrophils 7.86 10 3/uL Lymphocytes 1.6 10 3/uL Monocytes 0.5 10 3/uL Eosinophils 0.1 10 3/uL Basophils 0.1 10 3/uL Neutrophil % 79.7 % Lymphocyte % 14.6 % Monocyte % 4.5 % Eosinophil % 0.6 % Basophils % 0.6 % NRBC % 0 % CBC Slide Review Slide Review Perform REVIEW AGREES WITH AUTOMATED Impression: 1. Patient with glioblastoma multiforme (high-grade glioma, WHO grade IV), involving the right parietal/occipital lobe of the brain, but with MRI evidence of extension into the corpus callosum and into the posterior right frontoparietal junction. 2. Molecular studies were requested but those results have not been reported. His other medical illnesses include: 3. Hypertension. 4. Hyperlipidemia. 5. Chronic atrial fibrillation. 6. He has suspected but apparently not documented coronary artery disease. 7. He has a history of having undergone excision of a melanoma from the upper right chest wall in 1992. There has been no evidence of recurrence. He began radiation concurrently with daily temozolomide chemotherapy on 04/05/2020. He completed radiation on 05/17/2020 to a total dose of 6000 cGy. Overall, he tolerated the treatment very well. As of his follow-up visit on 06/09/2020 he appeared to be showing improvement in his clinical status and on 06/14/2020 he began his first of 6 planned monthly cycles of temozolomide. He tolerated the treatment without acute toxicity. His repeat brain MRI on 06/23/2020 unfortunately showed significant progression of enhancement in the necrotic brain tumor centered in the right parietal occipital region. Overall, there was evidence of increasing cerebral edema and tumor burden. At that point his dexamethasone was increased to 4 mg twice daily. It subsequently has been tapered back to 2 mg daily. On 07/15/2020 he had on his own accord continued with the second cycle of temozolomide, which he took daily for 5 days. He again experienced no significant treatment-related side effects, but he has had decline in his performance status and he has developed overt diabetes. Plan: For now he will continue dexamethasone to 2 mg daily. He will start metformin 500 mg twice daily and he will begin monitoring his blood sugars at home. He will be scheduled for a follow-up visit with repeat brain MRI in 3 weeks. If he is not showing any response to the temozolamide, he will have the option to transition to second line treatment or to symptomatic/supportive care. Signed By: Benji Bourgeois M.D. <<Signature on File>>
== END 2020-07-26 23:59 | disposition home or self-care (01) ==
LOC: ONCMED 06:00
PROVIDERS: Absent Provider Radiology Radiation Oncology; PCP Family Medicine; Visit Provider Internal Medicine Medical Oncology
DX: C71.8 Malignant neoplasm of overlapping sites of brain (principal); I10 Essential (primary) hypertension; E78.5 Hyperlipidemia, unspecified; I48.0 Paroxysmal atrial fibrillation; I25.10 Atherosclerotic heart disease of native coronary artery without angina pectoris; E11.9 Type 2 diabetes mellitus without complications; Z85.820 Personal history of malignant melanoma of skin
CPT/HCPCS: 80053; 83036; 85025; 99214

== ENCOUNTER 2020-07-25 10:35 | Inpatient (IN) | payer MEDICARE, SELFPAY ==
[2020-07-25] VITALS (18 sets, daily range): BP systolic 73–183; BP diastolic 51–123; PULSE 101–132; RESP 17–31; TEMP 36.6–36.8; O2SAT 94–100; BMI 34.3
--- NOTE | 2020-07-25 10:52 | ECG_ITS ---
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 Measurements Intervals Jeannette Rate: 141 P: LA: -1 QRS: -34 QRSD: 89 T: 34 QT: 251 QTc: 385 Interpretive Statements ATRIAL FIBRILLATION WITH RAPID VENTRICULAR RESPONSE LEFT AXIS DEVIATION [QRS AXIS < -30] NONSPECIFIC ST & T-WAVE ABNORMALITY Compared to ECG 05/09/2016 15:33:11 Incomplete right bundle-branch block no longer present T-wave abnormality still present Electronically Signed On 07-26-2020 0:18:00 CDT by Betty Floyd M.D. [id number] f
[2020-07-25 11:02] LABS: Basophils % 0.3 %; Eosinophils % 0.2 %; Hematocrit 38.6 % (42.0-52.0); Hemoglobin 13.1 g/dL (11.7-16.6); Lymphocytes % 9.1 %; Mean Corpuscular HGB Conc 33.9 g/dL (30.0-36.0); Mean Corpuscular Volume 94.1 fL (80-94); Mean Platelet Volume 10.4 fL (7.4-10.4); Monocytes # 0.4 10^3/uL (0.2-0.9); Monocytes % 3.3 %; Neutrophils # 9.59 10^3/uL (1.8-7.7); Neutrophils % 84.1 %; Nucleated Red Blood Cells % 0.3 %; Platelet Count 170 10^3/cmm (130-400); Red Cell Distribution Width 13.9 % (12.1-15.1); White Blood Count 11.4 10^3/uL (4.0-10.0)
[2020-07-25 11:22] LABS: Alanine Aminotransferase 17 U/L (0-41); Alkaline Phosphatase 74 IU/L (40-130); Anion Gap 15.1 (5-19); Aspartate Amino Transferase 11 U/L (0-40); Blood Urea Nitrogen 17 mg/dL (8-23); Calcium 7.7 mg/dL (8.5-10.5); Carbon Dioxide 23 mmol/L (22-29); Chloride 93 mmol/L (98-107); Globulin 2.2 g/dL (1.3-4.6); Glomerular Filtration Rate 95.6 mL/min (90-130); Glucose 305 mg/dL (65-115); Osmolality Calculated 272 mOsm/kg (285-295); Potassium 4.1 mmol/L (3.5-5.1); Sodium 127 mmol/L (136-145); Total Bilirubin 0.5 mg/dL (0.15-1.2); Total Protein 5.2 g/dL (6.6-8.7)
[2020-07-25 11:23] LABS: Troponin(5th) Baseline 39 ng/L (0-15)
--- NOTE | 2020-07-25 12:01 | CTR_ITS ---
PROCEDURE INFORMATION: Exam: CT Chest With Contrast Exam date and time: 07/25/2020 12:02 PM Age: 69 years old Clinical indication: Other: Back; Chest pain; Type not specified; Patient HX: HX glioblastoma; Additional info: AMS, back pain, hypotension TECHNIQUE: Imaging protocol: Computed tomography of the chest with intravenous contrast. Radiation optimization: All CT scans at this facility use at least one of these dose optimization techniques: automated exposure control; mA and/or kV adjustment per patient size (includes targeted exams where dose is matched to clinical indication); or iterative reconstruction. Contrast material: OMNIPAQUE 300; Contrast volume: 95 ml; Contrast route: INTRAVENOUS (IV); COMPARISON: CR Hip 2-3v LEFT wwo Pelv* [id number] 02/22/2018 2:28 PM RADIATION DOSE METRICS: Total DLP (mGy-cm): FINDINGS: Lungs: Unremarkable. No consolidation. No masses. Pleural space: No pleural effusion. No pneumothorax. Heart: No cardiomegaly. No pericardial effusion. Aorta: No aortic aneurysm. Lymph nodes: No significant adenopathy. Liver: Decreased attenuation is seen in the liver compatible with hepatic steatosis. No mass. Bones/joints: No acute findings. Soft tissues: Unremarkable. IMPRESSION: No acute findings. PROCEDURE INFORMATION: Exam: CT Abdomen And Pelvis With Contrast Exam date and time: 07/25/2020 12:02 PM Age: 69 years old Clinical indication: Other: Back; Chest pain; Type not specified; Patient HX: HX glioblastoma; Additional info: AMS, back pain, hypotension TECHNIQUE: Imaging protocol: Computed tomography of the abdomen and pelvis with intravenous contrast. Radiation optimization: All CT scans at this facility use at least one of these dose optimization techniques: automated exposure control; mA and/or kV adjustment per patient size (includes targeted exams where dose is matched to clinical indication); or iterative reconstruction. Contrast material: OMNIPAQUE 300; Contrast volume: 95 ml; Contrast route: INTRAVENOUS (IV); COMPARISON: CR Hip 2-3v LEFT wwo Pelv* [id number] 02/22/2018 2:28 PM RADIATION DOSE METRICS: Total DLP (mGy-cm): FINDINGS: Liver: No mass. Gallbladder and bile ducts: Unremarkable. No ductal dilation. Pancreas: Normal. No ductal dilation. Spleen: Normal. No splenomegaly. Adrenals: Normal. No mass. Kidneys and ureters: Normal. No hydronephrosis. Stomach and bowel: No acute findings. No obstruction. No mucosal thickening. Colonic diverticulosis. Appendix: No evidence of appendicitis. Intraperitoneal space: Unremarkable. No free air. No significant fluid collection. Vasculature: No abdominal aortic aneurysm. Lymph nodes: No significant adenopathy. Bladder: Bladder catheter, nondistended. Reproductive: Unremarkable as visualized. Bones/joints: No acute findings. Soft tissues: Unremarkable. CT/CT chest abd pel w con* IMPRESSION: No acute findings. Radiation Dose CTDIVOL = (mGy): DLP = 2052.15~2052.15 (mGy-cm)
--- NOTE | 2020-07-25 12:01 | CTR_ITS ---
PROCEDURE INFORMATION: Exam: CT Head Without Contrast Exam date and time: 07/25/2020 12:02 PM Age: 69 years old Clinical indication: Altered mental status/memory loss; Confusion or disorientation; Prior surgery; Surgery date: 6+ months; Surgery type: Brain tumor; Additional info: AMS, glioblastoma TECHNIQUE: Imaging protocol: Computed tomography of the head without contrast. Radiation optimization: All CT scans at this facility use at least one of these dose optimization techniques: automated exposure control; mA and/or kV adjustment per patient size (includes targeted exams where dose is matched to clinical indication); or iterative reconstruction. COMPARISON: CT head wo con* [id number] 03/11/2020 12:43 PM RADIATION DOSE METRICS: Total DLP (mGy-cm): 934.57 FINDINGS: Brain: There is encephalomalacia in the right parietal lobe.Moderate white matter disease and volume loss are identified. There is no acute infarct or edema. No hemorrhage. Ventricles: Normal. No ventriculomegaly. Bones/joints: Unremarkable. No acute fracture. Sinuses: Visualized sinuses are unremarkable. No fluid levels. Mastoid air cells: Visualized mastoid air cells are well aerated. Soft tissues: Unremarkable. CT/CT head wo con* [id number] IMPRESSION: There are no acute concerning abnormalities. Radiation Dose CTDIVOL = (mGy): DLP = 934.57 (mGy-cm)
[2020-07-25 12:14] LABS: Troponin 5 2HR 34.48 ng/L (0-15)
[2020-07-25 12:17] LABS: Troponin 5 2HR Delta -4.52 ABS# (0-10)
[2020-07-25 12:22] LABS: INR 2.32 (0.8-1.2)
[2020-07-25 12:25] LABS: Add Urine Microscopic? YES; Bilirubin Urine Neg (NEGATIVE); Blood Urine 2+ (Negative); Glucose Urine UA 4+ (Normal); Ketones Urine 1+ (Negative); Leukocyte Esterase Urine Negative (Negative); Nitrate Urine Positive (Negative); Protein Urine Neg (Negative); RBC Urine 0-4 /hpf (0-2); Transitional Epi Cells Urine 0-4 /hpf; Urine Appearance Hazy (CLEAR); Urine Color Straw (Yellow); Urobilinogen Urine Norm (Negative); pH Urine 7 (5-7)
[2020-07-25 12:26] LABS: Add Urine Culture? Yes; Bacteria Urine 3+
[2020-07-25] MEDS: morphine 4 mg/mL SDV 1 mL IVP (12:33)
--- NOTE | 2020-07-25 12:41 | PC.NURSE ---
patient taken to ct
--- NOTE | 2020-07-25 12:52 | ECG_ITS ---
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 Measurements Intervals Worden Rate: 142 P: CA: -1 QRS: -30 QRSD: 94 T: 121 QT: 273 QTc: 421 Interpretive Statements ATRIAL FIBRILLATION WITH RAPID VENTRICULAR RESPONSE BORDERLINE LEFT AXIS DEVIATION [QRS AXIS < -20] NONSPECIFIC ST & T-WAVE ABNORMALITY Compared to ECG 05/09/2016 15:33:11 Incomplete right bundle-branch block no longer present T-wave abnormality still present Electronically Signed On 07-26-2020 0:34:33 CDT by Betty Floyd M.D. [id number]
[2020-07-25] MEDS: iohexol 300 mg/mL 100 mL Btl IV (13:01)
[2020-07-25] MEDS: cefTRIAXone 1,000 MG in sodium chloride 0.9% (plus) 50 ML 100 MG IV (13:50)
--- NOTE | 2020-07-25 14:55 | W.ED.AMS ---
HPI - Altered Mental Status General: Chief Complaint: Altered Mental Status Stated Complaint: LOW BACK PAIN; HYPOTENSION; AMS Time Seen by Provider: 07/25/20 10:47 History of Present Illness: HPI narrative: This patient is a 69-year-old male who presents today with altered mental status. I spoke to his daughter who takes care of him at home. She tells me that last night he was doing really well and was able to climb a set of stairs and take a shower on his own. This morning he had a hard time getting out of bed and once he was out of bed he was unable to get himself to the bathroom even with his walker. He seemed to be having trouble figuring out how to get there as opposed to 2 weeks to get there. EMS came and helped get him back into bed because his daughter was not able to do that by herself. They left but then he woke up and was in severe pain in his back and was still extremely confused. EMS was called back and brought him to the hospital. He has a history of a glioblastoma and has been in treatment for it. He is done fairly well up until recently where he has had some increasing symptoms and poor response to treatment. He did not finish his last 5-day cycle of treatment due to side effects. Dr. Bourgeois apparently was going to talk to the family about second line treatments versus hospice. The family was can think about this over the weekend. His daughter understands that he has a very poor prognosis. complaint: altered mental status Onset (ago): unknown (Present on awakening this morning) Timing confirmed by: family member Consistency of symptoms: Getting Worse Context: cancer Review of Systems General: Reports: ROS unobtainable due to medical condition PFSH ED PFSH: Medical History Atrial fibrillation Coumadin therapy Brain mass Hyperlipidemia Hypertension Melanoma Surgical History History of local excision of skin lesion excision of melanoma from right chest wall, and right forearm Family History Father Cancer Stomach. in his 70's Brother Cancer Melanoma Social History Smoking and tobacco status: current every day smoker Alcohol intake: never Household members: none Marital status: / service: Yes Current occupational status: retired History of recent travel: No Physical Exam Const: COMMON NORMALS: no acute distress GENERAL APPEARANCE: in distress, lethargic and diaphoretic NUTRITIONAL APPEARANCE: obese ORIENTATION/CONSCIOUSNESS: Yes lethargic HENMT: HEAD & SCALP: normal to inspection FACE & SINUS: normal facial exam Eye: GENERAL EYE: appearance normal, both eyes and all related structures Neck/C-Spine: COMMON NORMALS: supple, no meningeal signs and no JVD Chest: COMMONS NORMALS: normal inspection of the chest Resp: COMMON NORMALS: normal respiratory effort, No use of accessory muscles and clear to auscultation bilaterally AUSCULTATION: clear to auscultation bilaterally Cardio: COMMON NORMALS: no JVD and No murmurs present (Cardio) RATE: tachycardic RHYTHM: abnormal rhythm irregularly irregular GI: COMMON NORMALS: Normal to inspection, nondistended, normoactive bowel sounds present, Soft to palpation and non-tender INSPECTION: Yes normal to inspection AUSCULTATION: Yes normoactive bowel sounds PALPATION: Yes Soft to palpation Back/Pelvis: COMMON NORMALS: thoracic and lumbar spine normal to inspection Extremity: COMMON NORMALS: normal to inspection Neuro: COMMON NORMALS: moves all extremities and no sensory deficits noted SENSORIUM/ORIENTATION: Yes lethargic MENINGEAL SIGNS: Yes no meningeal signs GAIT: Yes Unable to assess gait Psych: COMMON NORMALS: mental status grossly normal, cooperative and normal affect Skin: COMMON NORMALS: no rashes or lesions noted and turgor normal GENERAL SKIN EXAM: no rashes or lesions noted and turgor normal Course ED course: Patient continued to have A. fib with RVR in the ED. His blood pressure also fluctuated quite a bit from the 80s to the 140s. Heart rate remained in the 110s to 140s. I did give 1 dose of Cardizem after his blood pressure had come up after fluids. He is on his third liter of fluid now to keep his pressures up. He is noted to have a significant UTI and I ordered a dose of Rocephin for that. I spoke to his daughter who takes care of him at home. It sounds like she has done a good job of planning and has hospital bed and various mobility devices at home. She said he was too weak today and she was not able to even help him get in and out of bed. She is interested in hospice with the realization that his cancer is very advanced and not responding to treatment. I think it is reasonable to keep him in the hospital overnight for treatment of his UTI and fluids but also to plan on him going back home with hospice. That is what he and his daughter both wish, that he be able to come home. I spoke with Dr. Dawson and he will admit. Vital Signs: Vital signs: Vital Signs Temperature 97.8 F 07/25/20 10:44 Pulse Rate 108 H 07/25/20 14:04 Respiratory Rate 19 H 07/25/20 14:04 Blood Pressure 114/67 07/25/20 14:04 Pulse Oximetry 100 07/25/20 14:04 MDM - Altered Mental Status Lab Data: Labs: Lab Results 07/25/20 07/25/20 07/25/20 Range/Units 09:12 09:12 09:12 WBC 11.4 H (4.0-10.0) 10^3/ uL RBC 4.10 (4.1-5.3) 10^6/u L Hgb 13.1 (11.7-16.6) g/dL Hct 38.6 L (42.0-52.0) % MCV 94.1 H (80-94) fL MCH 32.0 (28.0-34.0) pg MCHC 33.9 (30.0-36.0) g/dL RDW 13.9 (12.1-15.1) % Plt Count 170 (130-400) 10^3/c mm MPV 10.4 (7.4-10.4) fL Neut % (Auto) 84.1 % Lymph % (Auto) 9.1 % [place] % (Auto) 3.3 % Eos % (Auto) 0.2 % Baso % (Auto) 0.3 % Neut # (Auto) 9.59 H (1.8-7.7) 10^3/u L Lymph # (Auto) 1.0 (0.8-4.8) 10^3/u L [place] # (Auto) 0.4 (0.2-0.9) 10^3/u L Eos # (Auto) 0.0 (0.0-0.8) 10^3/u L Baso # (Auto) 0.0 (0.0-0.1) 10^3/u L Nucleated RBC % (a uto) 0.3 % Nucleated RBCs # 0.0 /100WBC PT (12.1-14.9) SECO NDS INR (0.8-1.2) Sodium 127 L (136-145) mmol/L Potassium 4.1 (3.5-5.1) mmol/L Chloride 93 L (98-107) mmol/L Carbon Dioxide 23 (22-29) mmol/L Anion Gap 15.1 (5-19) BUN 17 (8-23) mg/dL Creatinine 0.8 (0.7-1.2) mg/dL GFR Calculation 95.6 (90-130) mL/min Glucose 305 H (65-115) mg/dL Calculated Osmolal ity 272 L (285-295) mOsm/k g Lactic Acid (0.5-2.2) mmol/L Calcium 7.7 L (8.5-10.5) mg/dL Total Bilirubin 0.5 (0.15-1.2) mg/dL AST 11 (0-40) U/L ALT 17 (0-41) U/L Alkaline Phosphata se 74 (40-130) IU/L Troponin T Baselin e 39 H (0-15) ng/L Troponin T 120 Min [place] (0-15) ng/L Delta Troponin T (0-10) ABS# Total Protein 5.2 L (6.6-8.7) g/dL Albumin 3.0 L (3.5-5.2) g/dL Globulin 2.2 (1.3-4.6) g/dL Urine Color (Yellow) Urine Appearance (CLEAR) Urine pH (5-7) Ur Specific Gravit y (1.005-1.030) Urine Protein (Negative) Urine Glucose (UA) (Normal) Urine Ketones (Negative) Urine Blood (Negative) Urine Nitrate (Negative) Urine Bilirubin (NEGATIVE) Urine Urobilinogen (Negative) mg/dL Ur Leukocyte Adeola ase (Negative) Urine RBC (0-2) /hpf Urine WBC (0-5) /hpf Ur Squamous Epith Cells (0-5) Ur Transition Epit h Cell /hpf Amorphous Sediment Urine Bacteria (NONE) 07/25/20 07/25/20 07/25/20 Range/Units 09:12 11:05 11:22 WBC (4.0-10.0) 10^3/ uL RBC (4.1-5.3) 10^6/u L Hgb (11.7-16.6) g/dL Hct (42.0-52.0) % MCV (80-94) fL MCH (28.0-34.0) pg MCHC (30.0-36.0) g/dL RDW (12.1-15.1) % Plt Count (130-400) 10^3/c mm MPV (7.4-10.4) fL Neut % (Auto) % Lymph % (Auto) % [place] % (Auto) % Eos % (Auto) % Baso % (Auto) % Neut # (Auto) (1.8-7.7) 10^3/u L Lymph # (Auto) (0.8-4.8) 10^3/u L [place] # (Auto) (0.2-0.9) 10^3/u L Eos # (Auto) (0.0-0.8) 10^3/u L Baso # (Auto) (0.0-0.1) 10^3/u L Nucleated RBC % (a uto) % Nucleated RBCs # /100WBC PT 26.30 H (12.1-14.9) SECO NDS INR 2.32 H (0.8-1.2) Sodium (136-145) mmol/L Potassium (3.5-5.1) mmol/L Chloride (98-107) mmol/L Carbon Dioxide (22-29) mmol/L Anion Gap (5-19) BUN (8-23) mg/dL Creatinine (0.7-1.2) mg/dL GFR Calculation (90-130) mL/min Glucose (65-115) mg/dL Calculated Osmolal ity (285-295) mOsm/k g Lactic Acid 2.0 (0.5-2.2) mmol/L Calcium (8.5-10.5) mg/dL Total Bilirubin (0.15-1.2) mg/dL AST (0-40) U/L ALT (0-41) U/L Alkaline Phosphata se (40-130) IU/L Troponin T Baselin e (0-15) ng/L Troponin T 120 Min [place] 34.48 H (0-15) ng/L Delta Troponin T -4.52 L (0-10) ABS# Total Protein (6.6-8.7) g/dL Albumin (3.5-5.2) g/dL Globulin (1.3-4.6) g/dL Urine Color (Yellow) Urine Appearance (CLEAR) Urine pH (5-7) Ur Specific Gravit y (1.005-1.030) Urine Protein (Negative) Urine Glucose (UA) (Normal) Urine Ketones (Negative) Urine Blood (Negative) Urine Nitrate (Negative) Urine Bilirubin (NEGATIVE) Urine Urobilinogen (Negative) mg/dL Ur Leukocyte Adeola ase (Negative) Urine RBC (0-2) /hpf Urine WBC (0-5) /hpf Ur Squamous Epith Cells (0-5) Ur Transition Epit h Cell /hpf Amorphous Sediment Urine Bacteria (NONE) 07/25/20 Range/Units 11:55 WBC (4.0-10.0) 10^3/ uL RBC (4.1-5.3) 10^6/u L Hgb (11.7-16.6) g/dL Hct (42.0-52.0) % MCV (80-94) fL MCH (28.0-34.0) pg MCHC (30.0-36.0) g/dL RDW (12.1-15.1) % Plt Count (130-400) 10^3/c mm MPV (7.4-10.4) fL Neut % (Auto) % Lymph % (Auto) % [place] % (Auto) % Eos % (Auto) % Baso % (Auto) % Neut # (Auto) (1.8-7.7) 10^3/u L Lymph # (Auto) (0.8-4.8) 10^3/u L [place] # (Auto) (0.2-0.9) 10^3/u L Eos # (Auto) (0.0-0.8) 10^3/u L Baso # (Auto) (0.0-0.1) 10^3/u L Nucleated RBC % (a uto) % Nucleated RBCs # /100WBC PT (12.1-14.9) SECO NDS INR (0.8-1.2) Sodium (136-145) mmol/L Potassium (3.5-5.1) mmol/L Chloride (98-107) mmol/L Carbon Dioxide (22-29) mmol/L Anion Gap (5-19) BUN (8-23) mg/dL Creatinine (0.7-1.2) mg/dL GFR Calculation (90-130) mL/min Glucose (65-115) mg/dL Calculated Osmolal ity (285-295) mOsm/k g Lactic Acid (0.5-2.2) mmol/L Calcium (8.5-10.5) mg/dL Total Bilirubin (0.15-1.2) mg/dL AST (0-40) U/L ALT (0-41) U/L Alkaline Phosphata se (40-130) IU/L Troponin T Baselin e (0-15) ng/L Troponin T 120 Min [place] (0-15) ng/L Delta Troponin T (0-10) ABS# Total Protein (6.6-8.7) g/dL Albumin (3.5-5.2) g/dL Globulin (1.3-4.6) g/dL Urine Color Straw (Yellow) Urine Appearance Hazy A (CLEAR) Urine pH 7 (5-7) Ur Specific Gravit y 1.010 (1.005-1.030) Urine Protein Neg (Negative) Urine Glucose (UA) 4+ H (Normal) Urine Ketones 1+ H (Negative) Urine Blood 2+ H (Negative) Urine Nitrate Positive H (Negative) Urine Bilirubin Neg (NEGATIVE) Urine Urobilinogen Norm (Negative) mg/dL Ur Leukocyte Adeola ase Negative (Negative) Urine RBC 0-4 H (0-2) /hpf Urine WBC 10-15 H (0-5) /hpf Ur Squamous Epith Cells None (0-5) Ur Transition Epit h Cell 0-4 /hpf Amorphous Sediment Not Reportable Urine Bacteria 3+ H (NONE) Discharge Plan Discharge Prescriptions: No Action alprazolam 0.25 mg tablet 0.25 mg PO PRN RF: 0 diltiazem HCl 240 mg capsule,extended release 24hr 240 mg PO DAILY RF: 0 spironolactone 25 mg tablet 25 mg PO DAILY RF: 0 tramadol 50 mg tablet 50 mg PO QID PRN (Reason: UNKNOWN) RF: 0 Aspir-81 81 mg Tablet,Delayed Release (Dr/Ec) 81 mg PO DAILY RF: 0 silver sulfadiazine 1 % cream See Rx Instructions .ROUTE .COMPLEX RF: 0 metformin 500 mg tablet 500 mg PO BID RF: 0 nystatin 100,000 unit/mL suspension 5 ml PO QID RF: 0 Senna Plus 8.6-50 mg Tablet See Rx Instructions .ROUTE .COMPLEX RF: 0 cephalexin 500 mg capsule 500 mg PO TID RF: 0 dexamethasone 4 mg tablet 2 mg PO DAILY RF: 0 warfarin 5 mg Tablet 5 mg PO DAILY RF: 0 temozolomide 20 mg capsule See Rx Instructions .ROUTE .COMPLEX RF: 0 temozolomide 140 mg capsule See Rx Instructions .ROUTE .COMPLEX RF: 0 Zantac 150 mg PO DAILY RF: 0 Coding Level of Care Code ED Petroleum Refinery Operator for Chinmay Emanuel
--- NOTE | 2020-07-25 15:34 | PM.HP ---
Providers/Chief Complaint Primary Care Provider: Jose Quiles DO Chief Complaint: LOW BACK PAIN; HYPOTENSION; AMS History of Present Illness Asaf Rios is a 69 year old male presents to emerge department with generalized weakness and low back pain as well as dry cough for the last 2 days. He has been having hard time to urinate but otherwise denies painful micturition. Patient otherwise denied chest pain or abdominal pain. Denies shortness of breath. In emergency department patient was found to have urinary tract infection. He appears to be dry although does have 2+ bilateral lower extremity edema which he reports worsening over the last several weeks. Reports that usually he tries to be active and usually walks with a walker. He is medical history is significant for glioblastoma involving right parietal lobe which is being treated with temozolamide. He does not appear to be responding and plan to repeat MRI in couple of weeks and try second line treatment or symptomatic/supportive care. On his last MRI he does appear to have malignancy related vasogenic edema and increased tumor burden. He has chronic atrial fibrillation and was in rapid ventricular response in ER. He was given Cardizem push without significant improvement. During my evaluation patient's heart rate is in 140s. He is currently being ordered IV metoprolol. He is getting his third liter of IV fluids. He does make urine. Patient's CODE STATUS was discussed and he wants to allow natural . Dr. Rocha discussed with family and they were leaning towards hospice if patient is not improving. Patient was started on ceftriaxone. Review of Systems Narrative: Except as mentioned. Const: Denies: fever(s) or chills Eyes: Denies: change in vision ENMT: Denies: throat pain or change in hearing Card: Reports: edema; Denies: chest pain or lightheadedness Resp: Denies: dyspnea or productive cough GI: Denies: abdominal pain, nausea, vomiting, dysphagia, diarrhea, constipation, hematochezia or melena Musc: Denies: joint pain or joint swelling Skin/Breast: Denies: rash or erythema Neuro: Reports: weakness in extremities (Generalized.); Denies: headache(s) Psych: Denies: depression or suicidal ideation Endo: Denies: excessive sweating [place]/Lymph: Denies: easy bleeding or tender lymph nodes All/Imm: Denies: throat swelling Medications/Allergies Home Medications Medication Instructions Recorded Confirmed Last Taken Type alprazolam 0.25 mg tablet 0.25 mg PO PRN 03/03/20 07/25/20 03/11/20 History diltiazem HCl 240 mg 240 mg PO DAILY 03/03/20 07/25/20 03/11/20 History capsule,extended release 24 hr spironolactone 25 mg tablet 25 mg PO DAILY 03/03/20 07/25/20 03/11/20 History tramadol 50 mg tablet 50 mg PO QID PRN 03/03/20 07/25/20 03/10/20 History Zantac 150 mg PO DAILY 07/25/20 07/25/20 Unknown History aspirin [Aspir-81] 81 mg PO DAILY 07/25/20 07/25/20 Unknown History cephalexin 500 mg PO TID 07/25/20 07/25/20 Unknown History dexamethasone 2 mg PO DAILY 07/25/20 07/25/20 Unknown History metformin 500 mg PO BID 07/25/20 07/25/20 Unknown History nystatin 5 ml PO QID 07/25/20 07/25/20 Unknown History sennosides-docusate sodium [Senna See Rx Instructions .ROUTE .COMPLEX 07/25/20 07/25/20 Unknown History Plus] silver sulfadiazine See Rx Instructions .ROUTE .COMPLEX 07/25/20 07/25/20 Unknown History temozolomide See Rx Instructions .ROUTE .COMPLEX 07/25/20 07/25/20 Unknown History temozolomide See Rx Instructions .ROUTE .COMPLEX 07/25/20 07/25/20 Unknown History warfarin 5 mg PO DAILY 07/25/20 07/25/20 Unknown History Allergies Allergy/AdvReac Type Severity Reaction Status Date / Time No Known Allergies Allergy Verified 06/22/20 12:41 PFSH Acute PFSH: Medical History Atrial fibrillation Coumadin therapy Brain mass Hyperlipidemia Hypertension Melanoma Surgical History History of local excision of skin lesion excision of melanoma from right chest wall, and right forearm Family History Father Cancer Stomach. in his 70's Brother Cancer Melanoma Social History Smoking and tobacco status: current every day smoker Alcohol intake: never Household members: none Marital status: / service: Yes Current occupational status: retired History of recent travel: No Vitals/I&O/Wt Last Vital Signs Temp 97.8 F 07/25/20 10:44 Pulse 122 H 07/25/20 14:57 Resp 24 H 07/25/20 14:57 BP 136/96 07/25/20 14:57 Pulse Ox 98 07/25/20 14:57 07/25/20 07/25/20 07/25/20 06:59 14:59 22:59 Intake Total 50 / 50 Balance 50 / 50 Weight last 48 hrs Weight 96.615 kg Physical Exam Const: COMMON NORMALS: no acute distress and patient oriented x3 HENMT: COMMON NORMALS: normocephalic and atraumatic HEAD & SCALP: normocephalic and atraumatic Eye: COMMON NORMALS: EOMs intact bilaterally, conjunctivae normal and no scleral icterus CONJUNCTIVA: Yes conjunctivae normal Neck/C-Spine: COMMON NORMALS: no lymphadenopathy and no meningeal signs Lymph: LYMPHATIC: no lymphadenopathy noted Chest: COMMONS NORMALS: normal palpation of entire chest wall Resp: COMMON NORMALS: No use of accessory muscles and clear to auscultation bilaterally AUSCULTATION: clear to auscultation bilaterally Cardio: COMMON NORMALS: regular rate, regular rhythm and No murmurs present (Cardio) RATE: regular rate RHYTHM: regular rhythm OTHER: 2+ lower extremity edema GI: COMMON NORMALS: Soft to palpation and non-tender PALPATION: Yes Soft to palpation RECTAL EXAM: Yes deferred : COMMON NORMALS: Yes no CVA tenderness BLADDER/KIDNEY EXAM: Yes no CVA tenderness Back/Pelvis: COMMON NORMALS: no CVA tenderness and thoracic and lumbar spine normal to inspection Extremity: COMMON NORMALS: normal to inspection and capillary refill normal Neuro: COMMON NORMALS: patient oriented x3 and no focal motor deficits MENINGEAL SIGNS: Yes no meningeal signs OTHER: Patient is lethargic. He is generally weak throughout. Psych: COMMON NORMALS: mental status grossly normal, Normal thought process present and cooperative THOUGHT PROCESS: Normal thought process present Skin: NARRATIVE SKIN EXAM: Patient has upper abdominal petechial rash across and some in his extremities. Urinary Catheter Management^: Faust: Cath Placed During This Visit: yes Reason for Continuing Indwelling Catheter: Not indwelling catheter Urinary Catheter Date of Insertion: 07/25/20 Urinary Catheter Time of Insertion: 13:00 Data : 07/25/20 09:12 07/25/20 09:12 A&P Assessment and plan (1) Atrial fibrillation with RVR: Status: Acute (2) Urinary tract infection: Status: Acute (3) Dehydration with hyponatremia: Status: Acute (4) Glioblastoma: Status: Acute Additional A&P Information PLAN: Continue ceftriaxone and start patient on Cardizem drip if he is not responding to IV metoprolol. Discussed with Dr. Rocha and I am trying to arrange a bed in cardiac stepdown unit. Awaiting culture results. Check BNP and obtain echocardiogram. PT/OT. Depending on patient's progress patient and family may consider hospice. Attestations Medical Necessity Statement*: Patient with glioblastoma multiforme and generalized weakness as well as UTI and A. fib with RVR requires close inpatient monitoring and treatment. I expect patient will require more than 2 midnights. Coding Level of Care Code Acute Improvement Rn for Chinmay Fwd Diagnoses Atrial fibrillation with RVR I48.91 Urinary tract infection N39.0 Dehydration with hyponatremia E86.0; E87.1 Glioblastoma C71.9
[2020-07-25 15:44] LABS: Troponin 5 6HR 26.52 ng/L (0-15)
[2020-07-25 15:45] LABS: Troponin 5 6HR Delta -12.48 ng/L (0-12)
[2020-07-25 16:38] LABS: Glucose Point of Care 307 mg/dL (70-110)
[2020-07-25] MEDS: metoprolol tartrate 1 mg/1 mL SDV 5 mL 5 MG IV (16:43)
--- NOTE | 2020-07-25 17:00 | PC.NURSE ---
From ER Received pt from ER via stretcher. Weakness, mild confusion, petechial bruising generalized body noted. Right buttock pressure injury noted and dgtr at bedside stated he has this pressure injury prior. LE pitting edema noted 2+. Dgtr at bedsideis updated regarding treatment plan right now. She verbalizes that she talked to [facility] today regarding his condition and plan is hospice referral. Dgtr stated that they have been on discussion with Dr. Bourgeois since this week. Informed her that we will monitor his condition tonight for positive response with the current treatment in hospital. And tomorrow evaluation on hospice will be discuss per doctor discussion. Sh verbalizes understanding. Direct line to nurses station provided to the dgtr Monae who she said is the DPOA.
[2020-07-25] MEDS: sodium chloride 0.9% 500 ML IV (17:58)
[2020-07-25 18:00] LABS: NT Pro B Type Natriuretic Pept 849 pg/mL (0-125)
[2020-07-25] MEDS: levofloxacin-dextrose 5 % 750 MG/150 ML PREMIX 100 MG IV (18:02)
[2020-07-25] MEDS: nystatin 100,000 unit/mL UDC 5 mL 500000 UNIT PO ×2 (18:02→20:34)
[2020-07-25] MEDS: digoxin 250 mcg/ml INJ 2 mL 500 MCG IVP (18:02)
[2020-07-25] MEDS: TRAMadol 50 mg Tablet PO (18:02)
[2020-07-25] MEDS: sodium chloride 0.9% 500 ML 999 ML IV (20:06)
[2020-07-25] MEDS: ALPRAZolam 0.25 mg Tablet PO (20:34)
[2020-07-25] MEDS: sennosides 8.6 mg Tablet 17.2 MG PO (20:34)
[2020-07-26] VITALS: BP 97/59; PULSE 120; RESP 19; O2SAT 96
--- NOTE | 2020-07-26 00:33 | PC.NURSE ---
DR MCCRACKEN WANTED TO DC CARDIZEM GTT AND START AMIODARONE GTT. ELECTRONIC HEALTH RECORDS SPECIALIST NURSE STOPPED CARDIZEM AND STARTED THE AMIODARONE GTT. WILL CONTINUE TO MONITOR.
--- NOTE | 2020-07-26 01:01 | PC.NURSE ---
DR WAS NOTIFIED OF HR INCREASING (130'S) AND BP LOWERING (82/62).
[2020-07-26 03:59] VITALS: BP 92/65; PULSE 134; RESP 19; TEMP 36.8; O2SAT 96
--- NOTE | 2020-07-26 04:04 | PC.NURSE ---
PT IS RESTING IN BED AT THIS TIME. PT IS CONFUSED. IV IN LEFT AC INFILTRATED. PT HAS BEEN A-FIB/FLUTTER THROUGHOUT THE NIGHT. HR 110'S - 140'S, BP 92/65. WILL CONTINUE TO MONITOR.
[2020-07-26 04:24] LABS: Hematocrit 37.4 % (42.0-52.0); Hemoglobin 12.9 g/dL (11.7-16.6); Mean Corpuscular HGB Conc 34.5 g/dL (30.0-36.0); Mean Corpuscular Hemoglobin 32.2 pg (28.0-34.0); Mean Corpuscular Volume 93.3 fL (80-94); Mean Platelet Volume 10.1 fL (7.4-10.4); Platelet Count 144 10^3/cmm (130-400); Red Blood Count 4.01 10^6/uL (4.1-5.3); Red Cell Distribution Width 13.9 % (12.1-15.1); White Blood Count 10.7 10^3/uL (4.0-10.0)
[2020-07-26 04:37] LABS: INR 2.18 (0.8-1.2)
[2020-07-26 04:43] LABS: Alanine Aminotransferase 15 U/L (0-41); Albumin Level 2.2 g/dL (3.5-5.2); Alkaline Phosphatase 62 IU/L (40-130); Aspartate Amino Transferase 13 U/L (0-40); Blood Urea Nitrogen 15 mg/dL (8-23); Calcium 7.6 mg/dL (8.5-10.5); Carbon Dioxide 18 mmol/L (22-29); Chloride 101 mmol/L (98-107); Globulin 2.3 g/dL (1.3-4.6); Glomerular Filtration Rate 111.5 mL/min (90-130); Glucose 268 mg/dL (65-115); Magnesium 1.6 mg/dL (1.7-2.3); Osmolality Calculated 274 mOsm/kg (285-295); Sodium 129 mmol/L (136-145); Total Bilirubin 0.4 mg/dL (0.15-1.2); Total Protein 4.5 g/dL (6.6-8.7)
[2020-07-26 05:15] LABS: Total Cells Counted 100 (0-100)
[2020-07-26 05:21] LABS: Band Neutrophils Absolute 3.4 10^3/cmm (0.0-1.2); Lymphocytes 13 %; Monocytes Absolute 2.2 10^3/cmm (0.1-0.6); Segmented Neutrophils 28 %
[2020-07-26 05:23] LABS: Absolute Neutrophil 6.4 10^3/cmm (1.4-6.5); Platelet Estimate Normal (Normal); Poikilocytosis 1+; Polychromasia 1+
[2020-07-26] MEDS: cefTRIAXone 1,000 MG in sodium chloride 0.9% (plus) 50 ML 100 MG IV ×2 (05:31→16:41)
[2020-07-26 07:51] VITALS: BP 85/62; PULSE 140; RESP 21; TEMP 36.4; O2SAT 96
[2020-07-26 08:36] VITALS: BP 104/66; PULSE 140
--- NOTE | 2020-07-26 08:41 | PC.NURSE ---
Physician notification Dr. Bernard notified that patient HR is maintaining 130s-150s while resting. BP 104/66. Patient currently on 0.5 mg/min Amiodarone gtt. O2 saturations 93% on 5 L with crackles in bilateral bases. Patient appears short of breath. Physician gave telephone order to administer digoxin IV and obtain chest xray. Physician to put in orders. Physician gave telephone order for nurse to administer all other oral medications besides Cardizem. Hold PO Cardizem. Nurse informed physician that patient does not have a diet order. Physician gave telephone order to keep patient NPO except for medications until further evaluation. RBVO. Nurse to continue to monitor.
--- NOTE | 2020-07-26 09:06 | XRR_ITS ---
PROCEDURE INFORMATION: Exam: XR Chest, 1 View Exam date and time: 07/26/2020 9:25 AM Age: 69 years old Clinical indication: Shortness of breath; Patient HX: Unable to obtain any history; Additional info: SOB TECHNIQUE: Imaging protocol: XR of the chest Views: 1 view. COMPARISON: CT chest abd pel w con* 07/25/2020 12:48 PM FINDINGS: The thorax is partially obscured by overlying EKG leads. Lungs: Hypoinflation with mild left basilar airspace disease. Pleural space: No significant pleural effusion. Heart/Mediastinum: No cardiomegaly. Bones/joints: Degenerative change. XR/XR chest 1V portable [id number] IMPRESSION: Hypoinflation with mild left basilar airspace disease.
[2020-07-26] MEDS: digoxin 250 mcg/ml INJ 2 mL IVP (09:30)
[2020-07-26 09:32] VITALS: PULSE 128; O2SAT 96
[2020-07-26] MEDS: nystatin 100,000 unit/mL UDC 5 mL 500000 UNIT PO ×4 (09:36→21:01)
[2020-07-26] MEDS: dexamethasone 4 mg Tablet 2 MG PO (09:37)
[2020-07-26] MEDS: aspirin 81 mg EC Tablet PO (09:37)
[2020-07-26] MEDS: spironolactone 25 mg Tablet PO (09:38)
[2020-07-26] MEDS: warfarin 5 mg Tablet PO (09:38)
--- NOTE | 2020-07-26 10:46 | ECG_ITS ---
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 Measurements Intervals Panther Rate: 142 P: WA: -1 QRS: -24 QRSD: 98 T: 60 QT: 247 QTc: 381 Interpretive Statements ATRIAL FIBRILLATION WITH RAPID VENTRICULAR RESPONSE BORDERLINE LEFT AXIS DEVIATION [QRS AXIS < -20] LOW QRS VOLTAGE IN EXTREMITY LEADS [QRS DEFLECTION < 0.5 mV IN LIMB LEADS] MODERATE ST DEPRESSION [0.05+ mV ST DEPRESSION] Compared to ECG 07/25/2020 12:38:41 Low QRS voltage now present ST (T wave) deviation now present T-wave abnormality no longer present Electronically Signed On 07-26-2020 23:47:01 CDT by Betty Floyd M.D. [id number]
[2020-07-26 11:13] VITALS: BP 91/64; PULSE 137; RESP 19; TEMP 36.4; O2SAT 98
--- NOTE | 2020-07-26 12:10 | PC.OT ---
Hold therapy per MD due to increased HR.
--- NOTE | 2020-07-26 13:40 | PC.NURSE ---
Patient placed on comfort measures. Physician gave verbal order to discontinue telemetry monitoring.
--- NOTE | 2020-07-26 16:07 | PC.SOCIAL ---
Was alerted that daughter had some concerns regarding improper mask wearing during transport from floors and by a staff member. Discussed all concerns and relayed information to Suellen and Valeria. They will follow up and address. Returned call to update Daughter and explained if she has any concerns going forward to please feel free to request a call with American Indian Policy Specialist or call Administration deposition reporter. Daughter verbalized understanding.
--- NOTE | 2020-07-26 16:56 | P.PN_ITS ---
Subjective Subjective: Interval history: No acute events overnight. Overnight patient has been in A. fib and amnio drip. Today morning on examination patient is saturating 92% on 5 L nasal cannula's oxygen supplementation, heart rate running in 140s. He is awake alert oriented to self and president but not oriented to time. He is oriented to place. He denies of having any nausea, vomiting, headache. Complaining of back pain. Goals of care were discussed with the patient he states he and his family had discussed hospice in the past at present is open to doing what ever his daughter Monae decides. Goals of care were discussed in detail with his D POA who states given his baseline functionality, advanced glioblastoma which does not seem to be responding to treatment they would like to go hospice route. Hospice have been contacted with. Vitals/I&O/Wt Last Vital Signs Temp 97.6 F 07/26/20 14:36 Pulse 77 07/26/20 14:36 Resp 22 H 07/26/20 14:36 BP 196/105 07/26/20 14:36 Pulse Ox 97 07/26/20 14:36 07/26/20 07/26/20 07/26/20 06:59 14:59 22:59 Intake Total 391.517 / 1574.367 109.278 / 109.278 Output Total 1400 / 1400 700 / 700 Balance -1008.483 / 174.367 -590.722 / -590.722 Weight last 48 hrs Weight 96.615 kg Physical Exam Const: COMMON NORMALS: no acute distress and patient oriented x3 HENMT: COMMON NORMALS: normocephalic and atraumatic HEAD & SCALP: normocephalic and atraumatic Eye: COMMON NORMALS: EOMs intact bilaterally, conjunctivae normal and no scleral icterus CONJUNCTIVA: Yes conjunctivae normal Neck/C-Spine: COMMON NORMALS: no lymphadenopathy and no meningeal signs Lymph: LYMPHATIC: no lymphadenopathy noted Chest: COMMONS NORMALS: normal palpation of entire chest wall Resp: COMMON NORMALS: No use of accessory muscles and clear to auscultation bilaterally AUSCULTATION: clear to auscultation bilaterally Cardio: COMMON NORMALS: regular rate, regular rhythm and No murmurs present (Cardio) RATE: regular rate RHYTHM: regular rhythm OTHER: 2+ lower extremity edema GI: COMMON NORMALS: Soft to palpation and non-tender PALPATION: Yes Soft to palpation RECTAL EXAM: Yes deferred : COMMON NORMALS: Yes no CVA tenderness BLADDER/KIDNEY EXAM: Yes no CVA tenderness Back/Pelvis: COMMON NORMALS: no CVA tenderness and thoracic and lumbar spine normal to inspection Extremity: COMMON NORMALS: normal to inspection and capillary refill normal Neuro: COMMON NORMALS: patient oriented x3 and no focal motor deficits MENINGEAL SIGNS: Yes no meningeal signs OTHER: Patient is lethargic. He is generally weak throughout. Psych: COMMON NORMALS: mental status grossly normal, Normal thought process present and cooperative THOUGHT PROCESS: Normal thought process present Skin: NARRATIVE SKIN EXAM: Patient has upper abdominal petechial rash across and some in his extremities. Urinary Catheter Management^: Faust: Cath Placed During This Visit: yes Reason for Continuing Indwelling Catheter: Assist Healing of Perineal & Sacral Wounds- Incontinent Patients Urinary Catheter Date of Insertion: 07/25/20 Urinary Catheter Time of Insertion: 13:00 Data : 07/26/20 03:50 07/26/20 03:50 Micro: Microbiology 07/25/20 11:55 Urine Culture - Preliminary Urine,Clean Catch Staphylococcus species A&P Assessment and plan (1) Hospice care: Status: Acute (2) Atrial fibrillation with RVR: Status: Acute (3) Urinary tract infection: Status: Acute (4) Dehydration with hyponatremia: Status: Acute (5) Glioblastoma: Status: Acute (6) Brain mass: Status: Acute Additional A&P Information Given the goals of care discussion both with patient and his D POA/stepdaughter Ms. Licona who is his primary caregiver hospice referral has been set in. No further blood work. Remove telemetry. We will stop amnio drip. For now we will continue with home medications. Morphine 1 mg IV every 3 hours as needed for pain control. At home patient takes tramadol for pain. Hospice/allow natural . No DVT prophylaxis. Famotidine for PUD prophylaxis Attestations Medical Necessity Statement*: Hospice care, glioblastoma, atrial fibrillation Time Spent in Patient Care: Greater than 35 minutes (>than 50% of time spent in counselling and/or direct pt care on unit) . Coding Level of Care Code Acute Furnace Erector for [facility] Fwd Diagnoses Hospice care Z51.5 Atrial fibrillation with RVR I48.91 Urinary tract infection N39.0 Dehydration with hyponatremia E86.0; E87.1 Glioblastoma C71.9 Brain mass G93.89
--- NOTE | 2020-07-26 17:27 | PC.OT ---
OT note: Pt on comfort measures, discussed with nursing. OT eval not completed, discharge from OT.
[2020-07-26] MEDS: levofloxacin-dextrose 5 % 750 MG/150 ML PREMIX 100 MG IV (17:32)
[2020-07-26] MEDS: famotidine 20 mg/2 mL INJ IVP (17:34)
[2020-07-26] MEDS: ALPRAZolam 0.25 mg Tablet PO (21:01)
[2020-07-26] MEDS: sennosides 8.6 mg Tablet 17.2 MG PO (21:01)
[2020-07-26] MEDS: TRAMadol 50 mg Tablet PO (21:01)
--- NOTE | 2020-07-26 21:11 | PC.NURSE ---
Patient was given PRN pain medication per patient request. Patient was offered a bed bath and agreed. Bed bath will be given.
--- NOTE | 2020-07-26 22:08 | PC.NURSE ---
Patient was provided complete bed bath and complete linen change with 2 assist. Patient had several bandages on him: Right wrist, left lower leg, head, left elbow, right elbow, right AC. These were replaced with optifoam. Patient refused a hospital gown and stated he just wanted to be covered up with a blanket. Patient refused to turn on his side, stating he wanted to lay on his back. Lotion and deodorant provided to patient with assistance.
--- NOTE | 2020-07-26 22:17 | PC.NURSE ---
IV removed from right AC due to catheter being almost out. Catheter was intact. Right wrist IV still in place. Will monitor.
--- NOTE | 2020-07-26 23:46 | PC.NURSE ---
Patient is currently resting with eyes closed with respirations. Will monitor.
[2020-07-27] MEDS: cefTRIAXone 1,000 MG in sodium chloride 0.9% (plus) 50 ML 100 MG IV (04:37)
[2020-07-27] MEDS: famotidine 20 mg/2 mL INJ IVP (04:37)
--- NOTE | 2020-07-27 04:42 | PC.NURSE ---
Patient states that he does not want pain medication and does not want to be turned or repositioned at this time.
--- NOTE | 2020-07-27 07:27 | PC.NURSE ---
Patient resting in bed, refuses position change at this time. Patient denies any pain. Faust patent and draining. Nurse to continue to monitor.
--- NOTE | 2020-07-27 09:43 | P.DS_ITS ---
Discharge Providers Date of Admission: 07/25/20 16:25 Date of Discharge: July 27, 2020 Attending Provider at Admission: Isrrael Dawson MD Attending Provider at Discharge: Artie Bernard MD Consults: Hospice Primary Care Provider: Jose Quiles DO Diagnoses at Discharge Discharge Diagnosis (1) Hospice care: Status: Acute (2) Atrial fibrillation with RVR: Status: Acute (3) Urinary tract infection: Status: Acute (4) Dehydration with hyponatremia: Status: Acute (5) Glioblastoma: Status: Acute (6) Brain mass: Status: Acute Reason for Visit Reason for Visit: LOW BACK PAIN; HYPOTENSION; AMS Hospital Course 2 Discharge Summary: Asaf Rios is a 69 year old male presents to emerge department with generalized weakness and low back pain as well as dry cough for the last 2 days. He has been having hard time to urinate but otherwise denies painful micturition. Patient otherwise denied chest pain or abdominal pain. Denies shortness of breath. In emergency department patient was found to have urinary tract infection. He appears to be dry although does have 2+ bilateral lower extremity edema which he reports worsening over the last several weeks. Reports that usually he tries to be active and usually walks with a walker. He is medical history is significant for glioblastoma involving right parietal lobe which is being treated with temozolamide. He does not appear to be responding and plan to repeat MRI in couple of weeks and try second line treatment or symptomatic/supportive care. On his last MRI he does appear to have malignancy related vasogenic edema and increased tumor burden. He has chronic atrial fibrillation and was in rapid ventricular response in ER. He was given Cardizem push without significant improvement. During my evaluati on patient's heart rate is in 140s. He is currently being ordered IV metoprolol. He is getting his third liter of IV fluids. He does make urine. Patient's CODE STATUS was discussed and he wants to allow natural . Patient was admitted to the hospital and was started on amiodarone drip atrial fibrillation with rapid ventricular response. His urine culture grew Staphylococcus. Patient's health and goals of care were discussed both with patient and his daughter who is the DPOAE Ms. Licona. They stated as patient is already received chemotherapy and MRIs not showing any improvement along with poor baseline functionality and advanced age we would want goals of care to be directed to work patient being comfortable. Hospice care was discussed and they both showed interest and agreed on the same. Patient is discharged in comfortable condition with hospice. He is to take oral Augmentin for next 14 days to finish a 14-day course for Staphylococcus UTI. Blood cultures could not be done because patient had been on hospice before. And urine cultures are growing Staphylococcus will consider him having blood cultures positive and will give overall 14-day course. Because of the same reasons urine catheter has been removed. The reason for Faust catheter has been discussed with the daughter and she is agreeable as well. Physical Exam Const: COMMON NORMALS: no acute distress and patient oriented x3 HENMT: COMMON NORMALS: normocephalic and atraumatic HEAD & SCALP: normocephalic and atraumatic Eye: COMMON NORMALS: EOMs intact bilaterally, conjunctivae normal and no scleral icterus CONJUNCTIVA: Yes conjunctivae normal Neck/C-Spine: COMMON NORMALS: no lymphadenopathy and no meningeal signs Lymph: LYMPHATIC: no lymphadenopathy noted Chest: COMMONS NORMALS: normal palpation of entire chest wall Resp: COMMON NORMALS: No use of accessory muscles and clear to auscultation bilaterally AUSCULTATION: clear to auscultation bilaterally Cardio: COMMON NORMALS: regular rate, regular rhythm and No murmurs present (Cardio) RATE: regular rate RHYTHM: regular rhythm OTHER: 2+ lower extremity edema GI: COMMON NORMALS: Soft to palpation and non-tender PALPATION: Yes Soft to palpation RECTAL EXAM: Yes deferred : COMMON NORMALS: Yes no CVA tenderness BLADDER/KIDNEY EXAM: Yes no CVA tenderness Back/Pelvis: COMMON NORMALS: no CVA tenderness and thoracic and lumbar spine normal to inspection Extremity: COMMON NORMALS: normal to inspection and capillary refill normal Neuro: COMMON NORMALS: patient oriented x3 and no focal motor deficits MENINGEAL SIGNS: Yes no meningeal signs OTHER: Patient is lethargic. He is generally weak throughout. Psych: COMMON NORMALS: mental status grossly normal, Normal thought process present and cooperative THOUGHT PROCESS: Normal thought process present Skin: NARRATIVE SKIN EXAM: Patient has upper abdominal petechial rash across and some in his extremities. Urinary Catheter Management^: Faust: Cath Placed During This Visit: yes Reason for Continuing Indwelling Catheter: Hospice/Comfort/Palliative Care Urinary Catheter Date of Insertion: 07/25/20 Urinary Catheter Time of Insertion: 13:00 Discharge Data Data Completed and Pending: Completed Studies During Hospitalization Category Date Time Status CT chest abd pel w con* Urgent Cat Scan 07/25/20 12:[address] head wo con* 7 0450 Stat Cat Scan 07/25/20 12:01 Completed XR chest 1V hilary ble 87441 Urgent Exams 07/26/20 09:06 Completed Pending at discharge Category Date Time Status CV echo complete* [id number] Routine Ultrasound 07/27/20 17:10 Taken Vitals: Last Vital Signs Temp 97.6 F 07/26/20 11:13 Pulse 137 H 07/26/20 11:13 Resp 19 H 07/26/20 11:13 BP 91/64 07/26/20 11:13 Pulse Ox 98 07/26/20 11:13 Discharge Plan Discharge Patient Disposition: Hospice - Home Condition: Stable Prescriptions: New sitagliptin 100 mg tablet 100 mg PO DAILY Qty: 60 RF: 0 Augmentin 875-125 mg tablet 1 tab PO Q12H Qty: 28 RF: 0 Continued alprazolam 0.25 mg tablet 0.25 mg PO PRN RF: 0 diltiazem HCl 240 mg capsule,extended release 24hr 240 mg PO DAILY RF: 0 spironolactone 25 mg tablet 25 mg PO DAILY RF: 0 tramadol 50 mg tablet 50 mg PO QID PRN (Reason: UNKNOWN) RF: 0 Aspir-81 81 mg Tablet,Delayed Release (Dr/Ec) 81 mg PO DAILY RF: 0 silver sulfadiazine 1 % cream See Rx Instructions .ROUTE .COMPLEX RF: 0 nystatin 100,000 unit/mL suspension 5 ml PO QID RF: 0 Senna Plus 8.6-50 mg Tablet See Rx Instructions .ROUTE .COMPLEX RF: 0 dexamethasone 4 mg tablet 2 mg PO DAILY RF: 0 warfarin 5 mg Tablet 5 mg PO DAILY RF: 0 temozolomide 20 mg capsule See Rx Instructions .ROUTE .COMPLEX RF: 0 temozolomide 140 mg capsule See Rx Instructions .ROUTE .COMPLEX RF: 0 Zantac 150 mg PO DAILY RF: 0 Discontinued metformin 500 mg tablet 500 mg PO BID RF: 0 cephalexin 500 mg capsule 500 mg PO TID RF: 0 Discharge Orders: Discharge Order (Routine); Ordered 07/27/20 Ordered By: Artie Bernard Referrals: [facility] [place] [facility] ([facility]) [Outside] Jose Quiles, [Primary Care Provider] - (You have an follow-up appointment with Dr. Quiles on Sunday, Jul.30 at 8:20a.m. If you have any questions, please call. ) Discharge Diet: Usual diet Discharge Activity: Resume usual activity Patient Instructions: Amoxicillin/Clavulanate Potassium (By mouth), Sitagliptin (By mouth), Hospice Care Discharge Attestations Time Spent in Discharge Care*: greater than 30 min Specific Discharge Activities: Specific discharge activities: educating and/or supporting family/caregiver, discussing with case management associate/social workers/dc planners, documenting/other paperwork and evaluating patient/reviewing data Status at Discharge: Cognitive status at discharge: cognitively intact , Behavioral status at discharge: cooperative , Functional status at discharge: other assisted ambulation Overall status at discharge: patient has a new baseline Quality Metrics Clinical Quality Measures During this hospital stay, did patient experience: None Coding Level of Care Code Acute Straightedge Man for [facility] Fwd Exam Comprehensive Diagnoses Hospice care Z51.5 Atrial fibrillation with RVR I48.91 Urinary tract infection N39.0 Dehydration with hyponatremia E86.0; E87.1 Glioblastoma C71.9 Brain mass G93.89
[2020-07-27] MEDS: warfarin 5 mg Tablet PO (10:02)
[2020-07-27] MEDS: spironolactone 25 mg Tablet PO (10:02)
[2020-07-27] MEDS: dexamethasone 4 mg Tablet 2 MG PO (10:02)
[2020-07-27] MEDS: aspirin 81 mg EC Tablet PO (10:03)
[2020-07-27] MEDS: nystatin 100,000 unit/mL UDC 5 mL 500000 UNIT PO ×2 (10:04→12:58)
[2020-07-27] MEDS: TRAMadol 50 mg Tablet PO (11:18)
--- NOTE | 2020-07-27 15:25 | PC.NURSE ---
Discharge instructions given per the physician's orders. Patient verbalized understanding of information and did not have any further questions.
--- NOTE | 2020-07-27 17:10 | USCV_ITS ---
Asaf Rios Age: 69 Gender: M : 1950 Exam Date: 07/27/2020 07:40 Ordering Phys: sIrrael Dawson MD Technologist: Seth Winkler [place] [facility] [place]ication: AFIV RVR BP: 132 / 73 HR: 120 Rhythm: Sinus Technical Quality: Adequate MEASUREMENTS (Male / Female) Normal Values 2D ECHO LV Diastolic Diameter PLAX 3.8 cm 4.2 - 5.9 / 3.9 - 5.3 cm LV Systolic Diameter PLAX 2.6 cm IVS Diastolic Thickness 0.9 cm 0.6 - 1.0 / 0.6 - 0.9 cm IVS Systolic Thickness 1.3 cm LVPW Diastolic Thickness 1.0 cm 0.6 - 1.0 / 0.6 - 0.9 cm LVPW Systolic Thickness 1.3 cm LVOT Diameter 2.1 cm LV Ejection Fraction 2D Teich 60.4 % LV Ejection Fraction MOD 2C 51.4 % LV Ejection Fraction 2C AL 49.3 % LA Diameter 4.5 cm LA Width 5.0 cm LA Height 4.7 cm RA Width 3.9 cm RA Height 6.0 cm M-MODE LV Diastolic Diameter MM 5.3 cm 4.2 - 5.9 / 3.9 - 5.3 cm LV Systolic Diameter MM 3.5 cm LV Ejection Fraction MM Teich 62.6 % IVS Diastolic Thickness MM 0.9 cm 0.6 - 1.0 / 0.6 - 0.9 cm IVS Systolic Thickness MM 1.4 cm LVPW Diastolic Thickness MM 1.4 cm 0.6 - 1.0 / 0.6 - 0.9 cm LVPW Systolic Thickness MM 1.4 cm RV Diastolic Diameter MM 1.5 cm Aortic Annulus Diameter 3.5 cm LA Ao Ratio MM 1.3 MV E Point Septal Separation 1.5 cm DOPPLER AV Peak Velocity 146.0 cm/s LVOT Peak Velocity 88.0 cm/s AV Area Cont Eq vti 2.2 cm squared AV Area Cont Eq pk 2.1 cm squared MV Area PHT 5.0 cm squared Mitral E to A Ratio 1.4 MV E' Velocity 8.0 cm/s Mitral E to MV E' Ratio 6.4 Mitral E to LV E' Lateral Ratio 7.8 Mitral E to LV E' Septal Ratio 5.4 TR Peak Velocity 219.0 cm/s TR Peak Gradient 19.2 mmHg TV Peak E Velocity 58.0 cm/s Right Atrial Pressure 3.0 mmHg Pulmonary Artery Systolic Pressu 22.2 mmHg FINDINGS Left Ventricle Normal left ventricular cavity size. Moderately decreased left ventricular systolic function. Left ventricular ejection fraction is estimated at 45 %. Global left ventricular hypokinesis. Due to [id number] variation in atrial fibrillation estimated ejection fraction and wall motion abnormality may not be made accurately. In the presence of atrial fibrillation diastolic he cannot be assessed accurately as well. Right Ventricle The right ventricle is normal in size and function. Right Atrium The right atrium is normal in size. Left Atrium The left atrium is normal in size. Mitral Valve Mitral annular calcification. No mitral valve stenosis. No mitral valve regurgitation. Aortic Valve Structurally normal aortic valve without significant sclerosis or stenosis. There is no aortic regurgitation. Tricuspid Valve Structurally normal tricuspid valve without significant stenosis or regurgitation. Pulmonary artery systolic pressure is normal. Pulmonic Valve Structurally normal pulmonic valve without significant stenosis. There is no pulmonic regurgitation. Pericardium Normal pericardium without effusion. Aorta Normal ascending aorta dimension. CONCLUSIONS 1-Normal left ventricular cavity size. Moderately decreased left ventricular systolic function. Left ventricular ejection fraction is estimated at 50 %. Global left ventricular hypokinesis. Due to [id number] variation in atrial fibrillation estimated ejection fraction and wall motion abnormality may not be made accurately. In the presence of atrial fibrillation diastolic he cannot be assessed accurately as well. 2-No significant valve abnormalities. 3-There is no pericardial effusion. 4-Pulmonary artery systolic pressure is within normal limits. 5-Right atrial pressure is around 5 mm of mercury. 6-No significant change since the prior echocardiogram study of 05/09/2016. Shani Romano MD (Electronically Signed) Final Date: 29 July 2020 18:37 S
== END 2020-07-27 15:27 | disposition hospice, home (50) | DRG 309 ==
LOC: ER 15:28 → CSU 07-26 07:23 → MEDSURG 07-26 08:52
PROVIDERS: Emergency Medicine; Admitting Provider Internal Medicine; PCP Family Medicine; Visit Provider Student in an Organized Health Care Education/Training Program
DX: I48.91 Unspecified atrial fibrillation (principal); N39.0 Urinary tract infection, site not specified; E87.1 Hypo-osmolality and hyponatremia; C71.9 Malignant neoplasm of brain, unspecified; E86.0 Dehydration; Z51.5 Encounter for palliative care; Z79.82 Long term (current) use of aspirin; Z79.01 Long term (current) use of anticoagulants; Z66 Do not resuscitate; E78.5 Hyperlipidemia, unspecified; I10 Essential (primary) hypertension; F17.210 Nicotine dependence, cigarettes, uncomplicated
CPT/HCPCS: 12345; 36415; 36416; 51702; 70450; 71045; 71260; 74177; 80053; 81001; 82962; 83605; 83735; 83880; 84484; 85007; 85025; 85610; 87077; 87086; 87186; 93005; 93306; 96375; 97161; 99283; J0282; J0696; J1160; J1956; J2270; J3490; J7040; J7060; J8540; Q9967

== ENCOUNTER 2020-08-27 13:13 | Emergency (ER) | payer MEDICARE, SELFPAY ==
[2020-08-27 13:19] VITALS: BP 111/70; PULSE 117; RESP 18; O2SAT 93; BMI 35.5
--- NOTE | 2020-08-27 13:37 | ED_ITS ---
HPI - Extremity Problem General: Chief complaint: Extremity Injury, Lower Stated complaint: SPIDER BITE Time Seen by Provider: 08/27/20 13:19 Source: patient Mode of arrival: ambulatory Limitations: no limitations History of Present Illness: HPI Narrative: 70-year-old male sent here from home on hospice. Patient has a chronic wound to his lower legs is being treated at home. Also has fluid collection to his distal anterior thigh that has been growing. He does not over his joint and has no warmth or fever. Denies any injury denies any worsening improving factors. Associated symptoms: Deny chest pain, fever(s) or rash Review of Systems Const: Denies: fever(s), chills, body aches or change in appetite Eyes: Denies: blurry vision or eye discomfort ENMT: Denies: throat pain or dental pain Card: Denies: chest pain Resp: Denies: dyspnea GI: Denies: abdominal pain, nausea, vomiting or diarrhea : Denies: dysuria Musc: Denies: neck pain or back pain Skin/Breast: Denies: rash Neuro: Denies: headache(s) Psych: Denies: depression Triston/Lymph: Denies: easy bruising All/Imm: Denies: urticaria PFSH ED PFSH: Medical History (Updated 08/27/20 @ 13:38 by Anoop Falcon MD) Atrial fibrillation Coumadin therapy Brain mass Hyperlipidemia Hypertension Melanoma Surgical History (System 08/10/20 @ 13:16 by Jennifer Valverde) History of local excision of skin lesion excision of melanoma from right chest wall, and right forearm Family History (System 08/10/20 @ 13:16 by Jennifer Valverde) Father Cancer Stomach. in his 70's Brother Cancer Melanoma Social History (System 08/10/20 @ 13:16 by Jennifer Valverde) Smoking and tobacco status: current every day smoker Alcohol intake: never Household members: none Marital status: / service: Yes Current occupational status: retired History of recent travel: No Physical Exam Const: COMMON NORMALS: no acute distress, patient oriented x3 and healthy appearing HENMT: COMMON NORMALS: normocephalic and atraumatic HEAD & SCALP: normocephalic and atraumatic Eye: COMMON NORMALS: Equal, round and reactive pupils present and EOMs intact bilaterally PUPIL: Yes Equal, round and reactive pupils present Neck/C-Spine: COMMON NORMALS: full ROM and supple Chest: COMMONS NORMALS: normal inspection of the chest and normal palpation of entire chest wall Resp: COMMON NORMALS: normal respiratory effort, No retractions, No use of accessory muscles and clear to auscultation bilaterally AUSCULTATION: clear to auscultation bilaterally Cardio: COMMON NORMALS: regular rate, regular rhythm and No murmurs present (Cardio) RATE: regular rate RHYTHM: regular rhythm GI: COMMON NORMALS: Normal to inspection, nondistended, normoactive bowel sounds present, Soft to palpation, non-tender and no masses PALPATION: Yes Soft to palpation Extremity: COMMON NORMALS: normal to inspection and full ROM NARRATIVE EX TREMITY EXAM: Chronic wound to the left lower leg that is well-appearing with no cellulitis. Does have a movable fluid collection to his anterior distal thigh with no warmth or redness Neuro: COMMON NORMALS: patient oriented x3, moves all extremities and no focal motor deficits Psych: COMMON NORMALS: mental status grossly normal, Normal thought process present and cooperative THOUGHT PROCESS: Normal thought process present Skin: COMMON NORMALS: no rashes or lesions noted and no wounds GENERAL SKIN EXAM: no rashes or lesions noted Course Vital Signs: Vital signs: Vital Signs Pulse Rate 117 H 08/27/20 13:19 Respiratory Rate 18 08/27/20 13:19 Blood Pressure 111/70 08/27/20 13:19 Pulse Oximetry 93 08/27/20 13:19 MDM - Extremity (Nontraumatic) MDM Narrative: Medical decision making narrative: Patient presents here with fluid collection to his thigh. I drained it with an 18-gauge needle. Pulled out roughly 80 to 90 cc of a darker milky-like substance. Substance had no purulent smell to it and the area was not warm. Do not believe this is infectious. Placed an Narciso wrap on him and will send for cultures. Will follow cultures and patient is stable for discharge. Discharge Plan Discharge Patient Disposition: Home Clinical Impression: Left leg swelling Condition: Stable Prescriptions: No Action alprazolam 0.25 mg tablet 0.25 mg PO PRN RF: 0 diltiazem HCl 240 mg capsule,extended release 24hr 240 mg PO DAILY RF: 0 spironolactone 25 mg tablet 25 mg PO DAILY RF: 0 tramadol 50 mg tablet 50 mg PO QID PRN (Reason: UNKNOWN) RF: 0 Aspir-81 81 mg Tablet,Delayed Release (Dr/Ec) 81 mg PO DAILY RF: 0 silver sulfadiazine 1 % cream See Rx Instructions .ROUTE .COMPLEX RF: 0 nystatin 100,000 unit/mL suspension 5 ml PO QID RF: 0 Senna Plus 8.6-50 mg Tablet See Rx Instructions .ROUTE .COMPLEX RF: 0 dexamethasone 4 mg tablet 2 mg PO DAILY RF: 0 warfarin 5 mg Tablet 5 mg PO DAILY RF: 0 temozolomide 20 mg capsule See Rx Instructions .ROUTE .COMPLEX RF: 0 temozolomide 140 mg capsule See Rx Instructions .ROUTE .COMPLEX RF: 0 Zantac 150 mg PO DAILY RF: 0 sitagliptin 100 mg tablet 100 mg PO DAILY Qty: 60 RF: 0 Augmentin 875-125 mg tablet 1 tab PO Q12H Qty: 28 RF: 0 Discharge Orders: Discharge Order (Routine); Ordered 08/27/20 Ordered By: Anoop Falcon Referrals: Jose Quiles, [Primary Care Provider] - 1-3 days Discharge Diet: Advance as tolerated Discharge Activity: Resume usual activity Patient Instructions: Knee Pain (ED) Coding Level of Care Code ED Library Assistant for Chinmay Emanuel
[2020-08-27 14:06] VITALS: BP 113/74; PULSE 105; RESP 20; O2SAT 94
== END 2020-08-27 14:01 | disposition home or self-care (01) ==
LOC: ER 14:03
PROVIDERS: Emergency Provider Emergency Medicine; PCP Family Medicine
DX: R60.0 Localized edema (principal); Z79.82 Long term (current) use of aspirin; Z79.01 Long term (current) use of anticoagulants; I48.91 Unspecified atrial fibrillation; E78.5 Hyperlipidemia, unspecified; I10 Essential (primary) hypertension; F17.210 Nicotine dependence, cigarettes, uncomplicated
CPT/HCPCS: 10060; 10160; 12345; 87070; 87075; 87205; 99282